=== PATIENT | male | born 1955 | race Caucasian/White ===

== ENCOUNTER 2018-03-15 06:40 | Emergency (ER) | payer MEDICAID, SELFPAY ==
[2018-03-15 06:43] VITALS: BP 151/82; PULSE 60; RESP 18; TEMP 36.7; O2SAT 99; BMI 29.2
--- NOTE | 2018-03-15 07:09 | ED.VISSUMM ---
- ER Visit Summary Date of Service: 03/15/18 Chief Complaint: [Back pain] History of Present Illness: The patient is a 62 M [presents the emergency department complaint of back pain that started 2 days ago. Patient states that he was stacking some wood when he first noticed the pain. The pain came on gradually and seemed to go away after a short time. Pain however did return and became more continuous. Patient had a more difficult time sleeping last night secondary to the pain. Patient denies any direct trauma to his back. Patient describes the pain is in his right lower back without any radiation to the abdomen, buttock, or legs. Patient denies any weakness in the legs. He denies any change in bowel or bladder function. Patient denies fever. He denies dysuria. Patient states that he had a similar pain years ago at which time it did radiate down his right leg but then the pain resolved and never returned.] Physical Examination: [HEENT-PERRLA, EOMI. Cranial nerves II through XII grossly intact. TMs clear. Mucous membranes moist. No adenopathy. Cardiovascular-regular rate and rhythm without murmur or ectopy Lungs-clear to auscultation, chest wall stable without crepitus or subcu emphysema Abdomen-normoactive bowel sounds, soft, nontender, no rebound or rigidity, no peritoneal signs. Back exam-patient has tenderness to palpation over the right low lumbar paraspinal musculature that reproduces his pain. No tenderness in the midline over the lumbar spine or thoracic spine. There is no erythema or warmth noted to his back. Patient does have pain with straight leg raising on the right at 50?. Deep tendon reflexes are plus out of 4 bilaterally at the patella and Achilles. Patient has normal L5 extension bilaterally. Patient has normal sensation. Extremities-intact ?4, normal range of motion, normal pulses, atraumatic] Test Results: None indicated [] Emergency Department Course and Treatment: [Patient will be treated with Naprosyn, [place], and Flexeril] Treatment Plan: [Patient has appointment with free clinic tomorrow. Patient to keep his appointment.] Disposition: [Discharged home in stable condition] Impression: [Lumbar strain] This note was generated with [employer]ation software. It may contain incorrect words, spelling, and punctuation that were not noted in review of the chart prior to signing ED Disposition - Plan for ED Patient: Chief Complaint: Back Referrals: Care Physician,No Primary [Primary Care Provider] -
--- NOTE | 2018-03-15 07:14 | DCINST.ED_ITS ---
ED Disposition - Plan for ED Patient: Chief Complaint: Back Instructions: ED Sprain Strain Lumbar Prescriptions: Hydrocodone/Acetaminophen [[place] 5-325 Tablet] 1 - 2 ea PO 4X/DAY PRN PRN 5 Days #20 tab PRN Reason: Pain Naproxen [Naprosyn] 500 mg PO BID PRN #20 tab Cyclobenzaprine [Flexeril] 10 mg PO TID PRN #20 tab PRN Reason: Muscle Spasm Referrals: Care Physician,No Primary [Primary Care Provider] - 1 Day
== END 2018-03-15 07:16 | disposition home or self-care (01) ==
LOC: ED 07:12
PROVIDERS: Emergency Provider Emergency Medicine
DX: S39.012A Strain of muscle, fascia and tendon of lower back, initial encounter (principal); X58.XXXA Exposure to other specified factors, initial encounter; Y93.9 Activity, unspecified; Y92.9 Unspecified place or not applicable; Z72.0 Tobacco use
CPT/HCPCS: 99282

== ENCOUNTER 2022-06-15 08:06 | Emergency (ER) | payer MEDICARE, SELFPAY ==
[2022-06-15 08:08] VITALS: BP 164/97; PULSE 84; RESP 17; TEMP 35.6; O2SAT 95; BMI 25.1
--- NOTE | 2022-06-15 08:32 | EX.ED.GUMALE ---
HPI History of Present Illness Chief Complaint: Complaint Informant: patient Narrative Narrative: Patient states he had a day or 2 with little blood in the urine few weeks to a month ago. It cleared up. He was doing well. Last couple days he has had more. He is also had mild discomfort with urination. He has had frequency. He has seen a couple small clots but generally the urine is red. It was then intermittently clear and go back. He takes no medicines currently. He is not on any anticoagulation. No fevers chills sweats nausea vomiting diarrhea or change in bowel habits. He is eating and drinking fine. He has not lost or gained weight recently. No history of bladder cancer. Does not have history of what sounds like significant BPH in the past. He states the last night he had 1 episode were he felt like it was a little hard to go the bathroom but then he is urinated multiple times since without difficulty. He does not feel systemically ill. Last time he saw physician was about 2 or so years ago. He has no history of prior medical problems. No medications No allergies Denies prior abdominal surgeries. He is a smoker. PFSH PFS Medical History no medical history Home Medications NK 06/15/22 [History Last Taken Unknown] Allergy/AdvReac Type Severity Reaction Status Date / Time No Known Allergies Allergy Verified 06/15/22 08:06 Surgical History no surgical history Social History Smoking Status: Current every day smoker tobacco type: cigarettes ROS ROS ED Constitutional Constitutional ED: Denies chills, fever(s) or subjective Cardiovascular Cardiovascular: Denies chest pain or palpitations Respiratory/Chest Respiratory/Chest: Denies cough or dyspnea Gastrointestinal Gastrointestinal: Denies abdominal pain, constipation, diarrhea, melena, nausea or vomiting Genitourinary Genitourinary ED: Reports dysuria, hematuria and urinary frequency Musculoskeletal Musculoskeletal: Denies arthralgias or back pain Integumentary Denies rash Neurologic Neurologic: Denies paresthesias Endocrine Endocrinology: Denies polydipsia Hematologic/Lymphatic Hematologic/Lymphatic: Reports other Details: No bleeding from cuts or gums or any other areas. No blood in the stool. ; Denies easy bleeding or easy bruising Allergic/Immunologic Allergic/Immunologic ED: Denies urticaria EXAM Physical Exam Const Vital Signs: 06/15/22 08:08 06/15/22 09:18 06/15/22 11:05 Temperature 96.1 F L 97.5 F L Temperature Source Temporal Temporal Pulse Rate 84 74 56 L Respiratory Rate 17 16 16 Blood Pressure 164/97 H 164/97 H 128/65 H Blood Pressure Mean 119 119 86 Pulse Ox 95 98 97 Oxygen Delivery Method Room Air Room Air Room Air Positive well nourished and well developed General Appearance ED: well developed and NAD; Negative for pallor HEENT Reports moist mucous membranes HEENT Narrative: No petechiae. Eyes EOMs intact bilaterally Neck no JVD Resp normal respiratory effort and clear to auscultation bilaterally Cardio regular rate and regular rhythm GI non-tender, non-distended and no masses GI Narrative: Abdomen soft benign. No masses. Bladder does not appear to be significantly distended. He can feel when I pressure on the bladder but is not really tender. I feel no lymph nodes. Palpation: soft no CVA tenderness Back/Spine no CVA tenderness Extremity normal to inspection Neuro Sensorium / Orientation: alert Psych mental status grossly normal Skin Skin Narrative: No petechiae purpura or pallor. General Skin Exam: Negative for jaundice or pallor MDM MDM MDM Narrative Medical decision making narrative: CT showed possible bladder neoplasm. I explained this to the patient. I had explained that one of the most important parts of his visit today will be follow-up. If he cannot get in for follow-up he needs to contact his private physician at the clinic or come back here. His blood work is normal including no signs of anemia. Electrolytes look good. Urine shows red cells. It is turbid. Culture is sent but not back. With his cath and irrigation and hematuria I will treat short course of antibiotics. But I think bleeding is likely from this lesion. His history has been intermittent over the last month. He now states he did not just have 1 episode a month ago but he has been having episodes about every 4 to 5 days that go on for a few days and then stop. He was irrigated and his urine came out almost clear. Is starting to get pink a little bit and red but no clots at this time. He did have one clot initially. He is comfortable going home. I explained if he gets heavier bleeding or lightheadedness or fever he needs to return. But because he is not anemic and has been having this for a month I think we can get him for follow-up. Lab Data Attestation: I reviewed the patient's lab results. Labs: Laboratory Results - last 24 hr 06/15/22 06/15/22 06/15/22 08:40 08:40 08:40 WBC 8.2 RBC 4.62 Hgb 14.5 Hct 44.6 MCV 96.5 H MCH 31.4 MCHC 32.5 RDW Std Deviation 49.0 H RDW Coeff of Kathi 13.7 Plt Count 459 H MPV 9.9 Immature Gran % (Auto) 0.900 Neut % (Auto) 64.6 Lymph % (Auto) 23.0 [place] % (Auto) 7.9 Eos % (Auto) 2.7 Baso % (Auto) 0.9 Absolute Neuts (auto) 5.3 Absolute Lymphs (auto) 1.89 Nucleated RBC % 0 Sodium 143 Potassium 4.1 Chloride 108 H Carbon Dioxide 30.0 Anion Gap 5 BUN 24 H Creatinine 1.13 Estim Creat Clear Calc 71.53 Est GFR (MDRD) Af Amer 84 Est GFR (MDRD) Non-Af 69 BUN/Creatinine Ratio 21.2 H Glucose 108 H Calcium 9.4 Urine Color Red Urine Clarity Turbid Urine pH 6.5 Ur Specific [place] 1.015 Urine Protein 500 H Urine Glucose (UA) Normal Urine Ketones 15 H Urine Occult Blood 250 H Urine Nitrite Negative Urine Bilirubin Negative Urine Urobilinogen Normal Ur Leukocyte Esterase 100 H Urine RBC > 100 SEEN Urine WBC 0 SEEN Ur Squamous Epith Cells 0 SEEN Urine Bacteria 0 SEEN Urine Mucus 0 SEEN Radiography Diagnostic Testing: Clinical Impression(s) from Imaging Studies Abdomen/Pelvis CT 06/15/22 08:42 IMPRESSION: Bladder wall thickening, perivesical stranding, and 2 cm enhancing lesion in the right bladder wall suspicious for neoplasm. Cystitis with phlegmon considered less likely. Small nonobstructing left renal calcification. Small bilateral renal cysts. Electronically Signed: Mary Leija MD at 10:05 EDT , CT scan looked at by me and read by radiology shows bladder wall thickening and a 2 cm enhancing lesion in the bladder wall that is suspicious for neoplasm. This goes along with his history. Discharge Plan Triage Chief Complaint: Complaint ED Provider: Mayur Shaw Dx/Rx/DC Orders Clinical Impression: Hematuria, Bladder mass Instructions: ED Hematuria Prescriptions: No Action NK Primary Care Provider: Care Physician,No Primary Referrals: Familia Prieto MD [Med Staff - Active Staff] - As soon as possible (Call Friday morning for an appointment this week. Tell them you have a catheter in, hematuria and bladder mass.) Shruthi Zamora [Non-Staff] - 3-5 Days (Follow-up if not able to get into urology within the next 6 days) Care Physician,No Primary [Primary Care Provider] - Disposition Disposition: Home, Self Care
--- NOTE | 2022-06-15 08:42 | CT_ITS ---
HISTORY: low abdominal pain, blood in urine starting yesterday, increased frequency. TECHNIQUE: Helically acquired images were obtained of the abdomen and pelvis after the intravenous administration of 100mL Isovue-370. A radiation dose optimization technique was used for this scan. 511 images. COMPARISON: None. FINDINGS: LOWER CHEST: Lung bases clear. BOWEL: Bowel including appendix nondilated. No focal pericolonic inflammatory change observed. PERITONEUM: No significant ascites. LIVER/SPLEEN/PANCREAS: Homogeneous and nonenlarged. GALLBLADDER/BILIARY TREE: Gallbladder present. KIDNEYS: 2 mm left interpolar calculus. No hydronephrosis. Small bilateral cysts measuring up to 1 cm on the right. ADRENAL GLANDS: No nodules. VESSELS: No abdominal aortic aneurysm. Atherosclerosis present with calcified and irregular noncalcified plaque. Probable vascular web in the infrarenal abdominal aorta. PELVIC ORGANS: Bladder wall thickening and mild perivesical stranding with 2 cm enhancing lesion of the right bladder wall, decompressed by Arevalo catheter. BONES: Degenerative change. CT/Abdomen/Pelvis W IV Cont ONLY IMPRESSION: Bladder wall thickening, perivesical stranding, and 2 cm enhancing lesion in the right bladder wall suspicious for neoplasm. Cystitis with phlegmon considered less likely. Small nonobstructing left renal calcification. Small bilateral renal cysts. Electronically Signed: Mary Leija MD at 10:05 EDT ,
[2022-06-15 08:50] LABS: Bacteria 0 SEEN /hpf (None Seen); Mucous, Urine 0 SEEN /hpf (<or=2+); Squamous Epithelial Cells - UA 0 SEEN /hpf (0-5); White Blood Cells 0 SEEN /hpf (0-5)
[2022-06-15 09:08] LABS: Color, Urine Red (Yellow); Glucose, Dipstick Normal (Normal); Ketone-Dipstick 15 mg/dl (Negative); Leukocyte Esterase-Dipstick 100 /ul (Negative); Nitrite-Dipstick Negative (Negative); Occult Blood-Urine 250 /ul (Negative); Protein-Dipstick 500 mg/dl (Negative); Specific Gravity, Urine 1.015 (1.002-1.030); Urine Bilirubin Dipstick Negative (Negative); Urine Clarity Turbid (Clear); Urine Urobilinogen Normal (Normal); Urine pH 6.5 (5.0 - 8.0)
[2022-06-15 09:13] LABS: Absolute Lymphocyte Count 1.89 X10^3/uL (0.83-4.51); Absolute Neutrophil Count 5.3 X10^3/uL (2.0-7.7); Basophil# 0.07 X10^3/uL; Basophil% 0.9 % (0-1); Eosinophil# 0.22 X10^3/uL; Eosinophils% 2.7 % (0-5); Hematocrit 44.6 % (40-54); Hemoglobin 14.5 g/dL (13.0-16.5); Lymphocyte # 1.89 X10^3/ul (0.83-4.51); Mean Corp Hgb Conc 32.5 g/dL (32-36); Mean Corpuscular Hgb 31.4 pg (27.0-32.0); Mean Corpuscular Volume 96.5 fL (80-94); Mean Platelet Vol. 9.9 fl (6.2-12.0); Monocyte# 0.65 X10^3/uL; Monocyte% 7.9 % (0-10); NRBC Flagged by Analyzer 0 % (0-5); Neutrophil # 5.31 X10^3/uL (2.7-7.7); Neutrophil % 64.6 % (47-70); Platelet Count 459 K/mm3 (150-450); RBC Distribution Width CV 13.7 % (11.6-14.6); Red Blood Count 4.62 M/mm3 (4.6-6.2); White Blood Count 8.2 K/mm3 (4.4-11.0)
[2022-06-15 09:18] VITALS: BP 164/97; PULSE 74; RESP 16; TEMP 36.4; O2SAT 98
[2022-06-15 09:18] LABS: Anion Gap 5 (5-15); BUN 24 mg/dL (7-18); BUN/Creat Ratio 21.2 RATIO (10-20); Calcium,Total 9.4 mg/dL (8.5-10.1); Chloride 108 mmol/L (98-107); Creatinine, Serum 1.13 mg/dL (0.70-1.30); EST Glomerular Filtration Rate 69 mL/min (>60); Est Glom Filt Rate - Afr Amer 84 mL/min (>60); Estimated Creatinine Clearance 71.53 ml/min; Glucose 108 mg/dL (74-106); Potassium 4.1 mmol/L (3.5-5.1); Sodium Level 143 mmol/L (136-145)
[2022-06-15 09:22] LABS: Red Blood Cells-Urine > 100 SEEN /hpf (0-5)
[2022-06-15 11:05] VITALS: BP 128/65; PULSE 56; RESP 16; O2SAT 97
[2022-06-15 11:59] VITALS: RESP 16
== END 2022-06-15 12:22 | disposition home or self-care (01) ==
PROVIDERS: Emergency Provider Emergency Medicine; Visit Provider Emergency Medicine
DX: Z00.00 Encounter for general adult medical examination without abnormal findings (principal)
CPT/HCPCS: 51702; 99284; 74177; 80048; 81001; 85025; 87086; Q9967; A4216

== ENCOUNTER 2022-06-18 15:38 | Inpatient (IN) | payer MEDICARE, SELFPAY ==
[2022-06-18 15:15] VITALS: BMI 21.3
[2022-06-18 15:28] VITALS: BP 139/76; PULSE 64; RESP 18; TEMP 36.4; O2SAT 96
[2022-06-18 15:34] VITALS: BP 139/76; PULSE 64; RESP 18; TEMP 36.4; O2SAT 96
[2022-06-18] MEDS: 0.9% Saline Lock 10 ML Syringe IV ×2 (16:06→16:27)
[2022-06-18] MEDS: 0.9% Normal Saline 1,000 ML 75 ML IV (16:06)
--- NOTE | 2022-06-18 16:40 | RAD_ITS ---
INDICATION: pre op EXAMINATION/TECHNIQUE: X-RAY - XR Chest 2 Views COMPARISON: None. FINDINGS: The lungs are clear. The cardiomediastinal silhouette is unremarkable. No pleural effusion or pneumothorax. Degenerative changes of the thoracic spine. RAD/Chest PA and Lateral IMPRESSION: No acute radiographic abnormalities. Electronically Signed: Bipin Jackson MD at 18:30 EDT ,
[2022-06-18] MEDS: Morphine 2 MG/ML Syringe 1 MG IV (16:58)
[2022-06-18 18:25] LABS: Hematocrit 35.6 % (40-54); Hemoglobin 12.2 g/dL (13.0-16.5); Mean Corp Hgb Conc 34.3 g/dL (32-36); Mean Corpuscular Hgb 32.3 pg (27.0-32.0); Mean Corpuscular Volume 94.2 fL (80-94); Mean Platelet Vol. 9.8 fl (6.2-12.0); Platelet Count 402 K/mm3 (150-450); RBC Distribution Width CV 13.7 % (11.6-14.6); RBC Distribution Width SD 47.8 fl (35.1-43.9); Red Blood Count 3.78 M/mm3 (4.6-6.2); White Blood Count 9.8 K/mm3 (4.4-11.0)
[2022-06-18 18:27] LABS: POSITIVE COUNT NO; POSITIVE DIFFERENTIAL NO; POSITIVE MORPHOLOGY NO; Scan Indicated on CBC? Y/N NO
[2022-06-18 19:22] LABS: Anion Gap 8 (5-15); BUN 24 mg/dL (7-18); BUN/Creat Ratio 21.2 RATIO (10-20); Calcium,Total 9.1 mg/dL (8.5-10.1); Chloride 106 mmol/L (98-107); Creatinine, Serum 1.13 mg/dL (0.70-1.30); EST Glomerular Filtration Rate 69 mL/min (>60); Est Glom Filt Rate - Afr Amer 84 mL/min (>60); Estimated Creatinine Clearance 65.82 ml/min; Glucose 148 mg/dL (74-106); Potassium 3.8 mmol/L (3.5-5.1); Sodium Level 140 mmol/L (136-145)
[2022-06-18 21:30] VITALS: BP 133/64; PULSE 66; RESP 16; TEMP 36.6; O2SAT 97
[2022-06-18 21:34] VITALS: BP 133/64; PULSE 66; RESP 16; TEMP 36.6; O2SAT 97
[2022-06-18] MEDS: Cefazolin 1 GM/50 ML BAG IV (21:56)
[2022-06-19] VITALS (12 sets, daily range): BP systolic 118–171; BP diastolic 60–94; PULSE 60–75; RESP 16–20; TEMP 36.2–37; O2SAT 95–99; BMI 21.3
[2022-06-19] MEDS: Acetaminophen 500 MG Tablet PO (04:19)
--- NOTE | 2022-06-19 05:55 | EKG12_ITS ---
Test Reason : AM EKG Blood Pressure : / mmHG Vent. Rate : 061 BPM Atrial Rate : 061 BPM P-R Int : 138 ms QRS Dur : 090 ms QT Int : 430 ms P-R-T Axes : 052 062 059 degrees QTc Int : 432 ms Normal sinus rhythm Normal ECG Confirmed by JUDY MOYA, MICHELINE ([id number]), graphic editor MACKENZIE DOMINGUEZ ([id number]) on 06/20/2022 12:49:15 PM Referred By: YAW Confirmed By:MICHELINE KIM MD
[2022-06-19] MEDS: Cefazolin 1 GM/50 ML BAG IV ×3 (06:15→22:33)
[2022-06-19] MEDS: 0.9% Normal Saline 1,000 ML 75 ML IV (06:16)
--- NOTE | 2022-06-19 11:20 | CASEMGMT ---
RN EVERT R PROGRAMMER CM to room to meet with patient for initial transition planning/care coordination assessment. BON LOYD introduced self and role at [facility]. Pt voices understanding and consents to assessment at this time. Pt resting in bed in no distress at this time. Pt is A/O at this time and answers all questions appropriately. Care providers, pharmacy, and demographics verified/updated at this time. PCP: No PCP. Pt states is has been about 10 yrs since seeing PCP and that was @ [facility] d/t he was laid off at the time. Pt encouraged to get established w/PCP. He states, I was thinking about doing that. Pt provided w/list of local PCP's. Pt voiced appreciation. Specialists: Dr Prieto-urologist. Preferred Pharmacy: [facility] Retail Insurance: [employer] A/B Prescription Benefit: Pt states he does not think he has RX benefits. He states, unless new rx's are really expensive, he should be able to afford paying for medications. Living Will/HPOA: States does not have LW or HCPOA . Interested in more information but states does not want to talk with at this time to complete paperwork, but states, I'll think about it. Provided w/Social Service rac card with number to call if chooses in the future to utilize [facility] social work for advanced directive completion. Patient expresses understanding. LNOK: Brother, Mathew. Pt has no children and parents are . Mathew is his only sibling. Living Arrangements: Lives alone in mobile home w/one step to enter. Pt states he is independent w/ADL's and IADL's. He states his stove is broken, but he does not wish to replace it d/t my house is wore out and then states, They'll probably tear it down when I move. He states he has the finances to purchase a new stove but does not wish to. He states he buys fast food often or microwaves meals. He declines wanting or needing any resources from , stating his finances are okay and he feels his home is a safe environment to live in. Transportation: Pt states drives self and states no transportation concerns at this time. DME: Denies using any DME and denies needs. HHC/SNF: no hx of either. Declines need for HHC. Pt wishes to return home and states has no concerns with going home at time of discharge. He states he was sent home from ER on Friday w/a F/C and had no difficulty w/managing it, stating, It was pretty easy. He states would be comfortable d/c'ing home w/ F/C again, if needed. Pt states smokes about 4 cigarettes a day and drinks ETOH, on a rare occasion. CM to follow for any discharge planning/needs. Pt voices no further concerns/needs at this time. Advised pt to ask for CM if any further questions/concerns/needs arise. Voices understanding. PLAN: Home Fadi EASON RN CM
--- NOTE | 2022-06-19 14:39 | NURSING ---
@ 1pprox 1430, pt to OR via bed
[2022-06-19] MEDS: Lactated Ringers 1,000 ML 15 ML IV (15:00)
--- NOTE | 2022-06-19 15:16 | DCINST_ITS ---
Discharge Instructions Diet Discharge Diet: No restrictions and Soft diet Activity Discharge Activity: Return to Normal Activity and No Restrictions Follow Up Care Please Follow Up With: Familia Prieto MD When: 2 weeks Test Results: Test results from this visit will be discussed in further detail at your follow- up appointment, if applicable. Discharge Plan Admission Admit Date/Time: 06/18/22 15:38 Primary Reason for Your Visit: bladder tumor Attending Provider: Familia Prieto Primary Care Provider: Care Physician,No Primary Discharge Orders/Prescriptions Prescriptions: New ciprofloxacin HCl [Cipro] 500 mg tablet 500 mg PO BID Qty: 14 0RF oxycodone-acetaminophen 5-325 mg tablet 1 tab PO Q6H PRN (Reason: pain) 7 Days Qty: 14 0RF Referrals / Follow Up: Familia Prieto MD [Med Staff - Active Staff] - Care Physician,No Primary [Primary Care Provider] -
--- NOTE | 2022-06-19 15:16 | HP.PCM_ITS ---
HPI - General General Date of Admission: 06/18/22 Date of Service: 06/19/22 HPI Narrative CARLOS ALBERTO TORRES, is a 67 M who presents with gross hematuria bladder mass and is gone to have surgery with a TUR[facility] Medical History Loose, teeth Smoker Home Medications ciprofloxacin HCl 500 mg tablet (Cipro) 500 mg PO BID #14 tabs 06/19/22 [Rx Last Taken Unknown] oxycodone-acetaminophen 5 mg-325 mg tablet 1 tab PO Q6H PRN pain 7 days #14 tabs 06/19/22 [Rx Last Taken Unknown] Allergy/AdvReac Type Severity Reaction Status Date / Time No Known Allergies Allergy Verified 06/15/22 08:06 Surgical History (Updated 06/18/22 @ 20:28 by Carlos Santana) History of tonsillectomy Social History Smoking Status: Current every day smoker tobacco type: cigarettes Vital Signs Vital Signs Vital Signs: 06/18/22 15:28 06/18/22 15:31 06/18/22 15:34 Temperature 97.6 F L 97.6 F L Temperature Source Temporal Temporal Pulse Rate 64 64 Pulse Strength Respiratory Rate 18 18 Respiratory Effort Respiratory Depth Respiratory Pattern Blood Pressure 139/76 H 139/76 H Blood Pressure Mean 97 97 Blood Pressure Source Monitor Blood Pressure Position Semi-Fowlers Blood Pressure Location Right Arm Pulse Ox 96 96 Oxygen Delivery Method Room Air Room Air Room Air 06/18/22 21:30 06/18/22 21:34 06/18/22 22:00 Temperature 98 F 98 F Temperature Source Oral Oral Pulse Rate 66 66 Pulse Strength Normal (2+) Respiratory Rate 16 16 Respiratory Effort Respiratory Depth Respiratory Pattern Blood Pressure 133/64 H 133/64 H Blood Pressure Mean 87 87 Blood Pressure Source Monitor Blood Pressure Position Semi-Fowlers Blood Pressure Location Right Arm Pulse Ox 97 97 Oxygen Delivery Method Room Air Room Air 06/18/22 21:15 06/19/22 03:30 06/19/22 03:30 Temperature 97.8 F 97.8 F Temperature Source Oral Oral Pulse Rate 72 72 Pulse Strength Respiratory Rate 16 16 Respiratory Effort Normal Non-Labored Respiratory Depth Normal Respiratory Pattern Normal Blood Pressure 150/80 H 150/80 H Blood Pressure Mean 103 103 Blood Pressure Source Monitor Blood Pressure Position Semi-Fowlers Blood Pressure Location Right Arm Pulse Ox 95 95 Oxygen Delivery Method Room Air Room Air Room Air 06/19/22 07:53 06/19/22 09:00 06/19/22 09:00 Temperature 97.8 F Temperature Source Temporal Pulse Rate 63 Pulse Strength Normal (2+) Respiratory Rate 18 18 Respiratory Effort Normal Respiratory Depth Respiratory Pattern Blood Pressure 147/87 H Blood Pressure Mean 107 Blood Pressure Source Blood Pressure Position Blood Pressure Location Pulse Ox 97 97 Oxygen Delivery Method Room Air Room Air 06/19/22 14:27 Temperature 97.8 F Temperature Source Temporal Pulse Rate 60 Pulse Strength Respiratory Rate 20 H Respiratory Effort Respiratory Depth Respiratory Pattern Blood Pressure 118/71 Blood Pressure Mean 86 Blood Pressure Source Monitor Blood Pressure Position Semi-Fowlers Blood Pressure Location Right Arm Pulse Ox 96 Oxygen Delivery Method Room Air Weight Weight: 71.4 kg Body Mass Index (BMI) 21.3 Results Lab / Micro Data Result Diagrams: 06/18/22 18:10 06/18/22 18:10 Labs: Laboratory Results - last 24 hr 06/18/22 18:10: WBC 9.8, RBC 3.78 L, Hgb 12.2 L, Hct 35.6 L, MCV 94.2 H, MCH 32.3 H, MCHC 34.3 D, RDW Std Deviation 47.8 H, RDW Coeff of Kathi 13.7, Plt Count 402, MPV 9.8 06/18/22 18:10: Sodium 140, Potassium 3.8, Chloride 106, Carbon Dioxide 26.0, Anion Gap 8, BUN 24 H, Creatinine 1.13, Estim Creat Clear Calc 65.82, Est GFR (MDRD) Af Amer 84, Est GFR (MDRD) Non-Af 69, BUN/Creatinine Ratio 21.2 H, Glucose 148 H, Calcium 9.1 Radiology Impression Chest X-Ray 06/18/22 16:40 IMPRESSION: No acute radiographic abnormalities. Electronically Signed: Bipin Jackson MD at 18:30 EDT ,
--- NOTE | 2022-06-19 15:43 | PCM.OPRPT ---
Report of Operation Date of Procedure: 06/19/22 Pre-Operative Diagnosis: Large bladder mass Post-Operative Diagnosis: Same Surgery/Procedure Performed:: Transurethral resection of a large bladder tumor over 5 cm size Description of Surgical Findings:: Patient presented to the hospital for treatment of a tumor that was found in the bladder with a very large bladder tumor. Patient understands is possible it may not be able to resect the entire tumor. Patient also understands is possible that the patient may need multiple procedures or more invasive procedures to cure him of this cancer. Patient was taken back to the operating room after smooth induction of anesthesia the patient was placed supine on the table. The patient was placed in dorsolithotomy position. The urethra and genitals prepped and draped in usual sterile fashion. I went into the bladder with a 30 degree lens and a cystoscope was performed and identified the tumor the tumors which was over 5 centimeters in size and occupying mostly the right lateral wall of the bladder. I then switched over to the 70 degree lens and inspected the rest of the bladder with a 70 degree lens to make sure there is no other tumors in the bladder and to identify all the tumor locations. The right and left ureteral orifice were identified. The tumor was not involved in the ureteral orifices. I then placed the Olympus bipolar resectoscope with a large loop into the bladder. I then started resected the tumor and started superficially shaving small little pieces working my way to the base of the tumor. This was an invasive tumor and complete resection of the tumor was not possible as it was invsive in the the bladder. As I went along I then cauterize any bleeders that were encountered during the resection. The tumor pieces were then flushed out of the bladder and continued resecting the tumor until finally I got down to the base of the tumor and the muscle of the bladder was then identified a small little bit of muscle was taken with the resection. The Ellik was used then to evacuate all the tumor pieces out of the bladder. I then cauterized extensively the tumor base and also circumferentially around where the tumor was. Again we made sure to evacuate all the pieces out the bladder. I made sure there was no more bleeding from the base of the bladder and then over the tumor pieces were then evacuated out and sent off as a specimen. We then placed the catheter in the bladder and the patient was taken back to the PACU in stable condition. Surgeon: Familia Prieto Type of Anesthesia: General Drains: none Admit VTE Documentation VTE Present on Admission: No VTE Mechan Device Prophylaxis: SCD's VTE Pharm Prophylaxis ordered?: No
--- NOTE | 2022-06-19 17:30 | BLB_PTH ---
PATIENT: CALROS ALBERTO TORRES LOC: MS3 U#:[id number] AGE/SX: 67/M [place] [facility] [place]18/[address]: Dr. Familia Prieto MD : [id number] BED: 1 DIS: 06/20/2022 SPEC #: [id number] RECD: 06/20/22 08:24 STATUS: DANUTA HOYT #: [id number] BARRON: 06/19/22 17:[address]: Familia Prieto DEPT: SURGICAL PATHOLOGY RECD BY: Mariama Dueñas ENTERED: 06/20/22 10:15 SP TYPE: TURB OTHR DR: No Primary Care Phys Tissues: Urinary bladder, NOS Procedures: Surgery Specimen Level V HEADER OPERATION: Cysto, transurethral resection bladder, [employer] PRE-OP DIAGNOSIS: Gross hematuria bladder mass TISSUE SUBMITTED: Bladder tumor MICROSCOPIC DIAGNOSIS Urinary bladder tumor, transurethral resection: Papillary urothelial carcinoma. See cancer synoptic report below. AM:meghan 06/21/2022 COMMENT The specimen mostly consists of clot and blood. Clinical correlation is suggested. BLADDER CANCER (TUR) SUMMARY Procedure: Transurethral resection of bladder tumor (TURBT) Tumor site: Not specified Histologic type: Papillary urothelial carcinoma, invasive Histologic grade: 3/3 Tumor configuration: Papillary and invasive Muscularis propria presence: Present and invaded by carcinoma. Lymphvascular invasion: Not identified Tumor extension: Tumor extends into detrusor muscle fragments. Additional pathologic findings: Chronic inflammation. The above summary is in compliance with [employer] [place] [employer] (CAP) Cancer Protocols Checklist and [place] Joint Committee on Cancer (AJCC), Staging Manual, 8th Ed. MICROSCOPIC DESCRIPTION Slides are reviewed. GROSS DESCRIPTION Received in fixative is one container labeled with the patient's name and designated bladder tumor. The specimen consists of multiple irregular fragments of dark red-mosqueda soft tissue with adherent fragments of blood clot that in aggregate measure 6.5 x 6.5 x 1 cm. The specimen is totally submitted in 20 cassettes. / AM:meghan 06/20/2022 TC:0 CPT: 29572
[2022-06-19] MEDS: Docusate Sodium 100 MG Capsule 200 MG PO (22:33)
[2022-06-19] MEDS: HYDROcodone Bitartrate/Apap 5/325 Tablet PO (22:34)
[2022-06-20 01:00] VITALS: BMI 21.3
[2022-06-20] MEDS: 0.9% Normal Saline 1,000 ML 75 ML IV (01:49)
[2022-06-20 05:00] VITALS: BP 131/66; PULSE 58; RESP 16; TEMP 36.5; O2SAT 97; BMI 21.3
[2022-06-20] MEDS: Cefazolin 1 GM/50 ML BAG IV (05:39)
--- NOTE | 2022-06-20 07:23 | PCM.PN.BLA ---
Progress Note Status post your VT for a invasive bladder tumor told the patient today that most likely he is get any chemotherapy and to have his bladder removed to address his cancer it is invasive. Pathology is pending he will go home today follow-up in my office in a week.
[2022-06-20] MEDS: Docusate Sodium 100 MG Capsule 200 MG PO (08:42)
[2022-06-20 08:45] VITALS: BMI 21.3
[2022-06-20 08:55] VITALS: BP 125/56; PULSE 68; RESP 18; TEMP 36.5; O2SAT 95
[2022-06-20 10:55] VITALS: BP 125/56; PULSE 68; RESP 18; TEMP 36.5; O2SAT 95
== END 2022-06-20 11:35 | disposition home or self-care (01) | DRG 670 ==
PROVIDERS: Admitting Provider Urology; Visit Provider Urology
PROC: 0TBB8ZZ Excision of Bladder, Via Natural or Artificial Opening Endoscopic (ICD-10-PCS; principal; 2022-06-19 17:20)
DX: C67.2 Malignant neoplasm of lateral wall of bladder (principal); F17.210 Nicotine dependence, cigarettes, uncomplicated; R31.0 Gross hematuria; Z28.310 Unvaccinated for COVID-19; Z28.9 Immunization not carried out for unspecified reason
CPT/HCPCS: 36415; 51702; 71046; 74177; 80048; 81001; 85025; 85027; 87086; 88307; 93005; 97802; 99251; 99284; 99406; J7030; J7120; Q9967; A4216; G0463

== ENCOUNTER 2023-02-19 07:08 | Emergency (ER) | payer MEDICARE, SELFPAY ==
[2023-02-19 07:08] VITALS: BP 149/90; PULSE 91; RESP 16; TEMP 36.4; O2SAT 98; BMI 26.4
--- NOTE | 2023-02-19 07:12 | EX.ED.DYSGE1 ---
HPI History of Present Illness Chief Complaint: Complaint [facility] Medical History Loose, teeth Smoker Allergy/AdvReac Type Severity Reaction Status Date / Time No Known Allergies Allergy Verified 02/19/23 07:10 Surgical History History of tonsillectomy Social History Smoking Status: Current every day smoker tobacco type: cigarettes EXAM Physical Exam Const Vital Signs: 02/19/23 07:08 Temperature 97.5 F L Temperature Source Temporal Pulse Rate 91 Respiratory Rate 16 Blood Pressure 149/90 H Blood Pressure Mean 109 Pulse Ox 98 Oxygen Delivery Method Room Air MDM MDM MDM Narrative Medical decision making narrative: HISTORY OF PRESENT ILLNESS: 67-year-old male here with hematuria. States his history of bladder cancer but never completed treatment. States for last several days he has had gross blood in his urine. Denies any urinary retention. Denies any lower abdominal pain. Denies chest pain shortness of breath excessive fatigue but does note some occasional lightheadedness over the last 24 hours. States he cannot sleep well last night because he had increased frequency. REVIEW OF SYSTEMS: Pertinent positives: Hematuria, lightheadedness Pertinent negatives: Chest pain, shortness of breath, syncope PHYSICAL EXAM: Nursing triage notes reviewed, Vital signs reviewed Constitutional: please see mdm HENT: MMM Eyes: Pupils equal round and reactive to light, Extraocular muscles intact Neck: No stridor, no JVD, full neck ROM Lungs: Clear to auscultation, No wheezing or rales. No increased work of breathing, no conversational dyspnea, no accessory muscle use, no nasal flaring. No respiratory distress noted Heart: Regular rate and rhythm, No murmurs, No rubs and No gallops, 2+ distal pulses (radial, femoral, posterior tibial) in all extremities Abdomen: Soft, there is no tenderness, rigidity, rebound or guarding, no obvious peritoneal signs, no palpable pulsatile abdominal masses, no auscultated abdominal bruit : No CVAT Extremities: No edema Neuro: No focal neurological deficits, cranial nerves II through XII intact, 5/5 strength in all extremities. Intact sensation to light touch in all extremities, 2+ reflexes bilateral patella tendons. Normal gait. No ataxia. Skin: No rash or lesions noted MEDICAL DECISION MAKING: Chief Complaint: Hematuria External records reviewed: No blood thinners, seen by Dr. Prieto for transurethral resection of large bladder tumor in 2021 Factors affecting care: Bladder cancer Social determinants of health: Elderly History obtained from others: None Consults: None ALL IMAGES (IF OBTAINED) HAVE BEEN PERSONALLY REVIEWED AND INTERPRETED BY MYSELF. [facility] Narrative: Patient was hemodynamically stable, afebrile, nontoxic-appearing. Abdominal exam was benign. No lower abdominal fullness noted. I considered the following differential diagnosis: UTI, bladder cancer, anemia, electrolyte abnormality, dehydration, kidney dysfunction, urinary retention I obtained a CBC to rule out significant anemia, BMP to rule out something electrode abnormality [place] or dehydration. UA to rule out UTI. I sent urine for culture. Patient was able to void here without issue effectively ruling out urinary retention. Patient's labs were remarkable for no significant anemia. No significant electrolyte abnormalities or signs of dehydration however there is some mild renal insufficiency. We discussed increasing p.o. intake to compensate. Patient's urine showed evidence of hematuria but no evidence of infection. Will send urine for culture. There is no clear life or limb threatening etiology could be ascertained The patient and/or family, caregivers express understanding. The patient and/or family, caregivers agrees with the plan. Total critical care time today provided was at least 0 minutes. This excludes separately billable procedures. Critical care time (if documented) is secondary to the patient having high probability of clinically significant/life threatening deterioration in the patient's condition which required my urgent intervention. Shared decision making: I will have a discussion with the patient and or visitors regarding risk/benefits of further testing or admission. They will be made aware of of the risk/benefits inherent in this decision they will be given the opportunity to voice understanding. Lab Data Attestation: I reviewed the patient's lab results. Lab results narrative: CBC without leukocytosis, severe anemia, no thrombocytopenia. BMP with no electrolyte abnormalities, no anion gap to suggest endorgan hypoperfusion, mild renal insufficiency, Urinalysis shows no evidence of urinary inflammation suggestive of UTI Labs: Laboratory Results - last 24 hr 02/19/23 02/19/23 02/19/23 07:43 07:43 07:43 WBC 9.5 RBC 4.30 L Hgb 13.4 Hct 41.6 MCV 96.7 H MCH 31.2 MCHC 32.2 RDW Std Deviation 47.4 H RDW Coeff of Kathi 13.3 Plt Count 286 MPV 9.7 Sodium 141 Potassium 4.3 Chloride 108 H Carbon Dioxide 28.0 Anion Gap 5 BUN 20 H Creatinine 1.44 H Estim Creat Clear Calc 56.13 Est GFR (MDRD) Af Amer 63 Est GFR (MDRD) Non-Af 52 L BUN/Creatinine Ratio 13.9 Glucose 118 H Calcium 9.6 Urine Color Red Urine Clarity Turbid Urine pH 7.0 Ur Specific [place] 1.015 Urine Protein 500 H Urine Glucose (UA) Normal Urine Ketones 15 H Urine Occult Blood 150 H Urine Nitrite Negative Urine Bilirubin Negative Urine Urobilinogen Normal Ur Leukocyte Esterase Negative Urine RBC > 100 SEEN Urine WBC 0 SEEN Ur Squamous Epith Cells 0 SEEN Urine Bacteria 0 SEEN Urine Mucus 0 SEEN Discharge Plan Triage Chief Complaint: Complaint ED Provider: Ashvin Pretty Dx/Rx/DC Orders Clinical Impression: Hematuria, History of bladder cancer, Acute renal insufficiency Instructions: ED Hematuria Primary Care Provider: Care Physician,No Primary Referrals: Familia Prieto MD [Med Staff - Active Staff] - Activity Restrictions/Additional Instructions: Thank you for trusting us with your care today! Please take Tylenol (2 pills, 650 mg), ibuprofen (2 pills, 400 mg) every 6 hours as needed for pain and fever control. Please return to the emergency department if your symptoms change or worsen. Specifically if you develop lightheadedness, excessive fatigue, if you lose consciousness, you have chest pain or shortness of breath. If you cannot urinate for greater than 12 hours. Please follow with your Urologist for further outpatient evaluation and management. Disposition Disposition: Home, Self Care Discharge Date/Time: 02/19/23 08:39
[2023-02-19 07:47] LABS: Bacteria 0 SEEN /hpf (None Seen); Hematocrit 41.6 % (40-54); Hemoglobin 13.4 g/dL (13.0-16.5); Mean Corp Hgb Conc 32.2 g/dL (32-36); Mean Corpuscular Hgb 31.2 pg (27.0-32.0); Mean Corpuscular Volume 96.7 fL (80-94); Mean Platelet Vol. 9.7 fl (6.2-12.0); Mucous, Urine 0 SEEN /hpf (<or=2+); Platelet Count 286 K/mm3 (150-450); RBC Distribution Width CV 13.3 % (11.6-14.6); RBC Distribution Width SD 47.4 fl (35.1-43.9); Squamous Epithelial Cells - UA 0 SEEN /hpf (0-5); White Blood Cells 0 SEEN /hpf (0-5); White Blood Count 9.5 K/mm3 (4.4-11.0)
[2023-02-19 07:52] LABS: Color, Urine Red (Yellow); Glucose, Dipstick Normal (Normal); Ketone-Dipstick 15 mg/dl (Negative); Leukocyte Esterase-Dipstick Negative /ul (Negative); Nitrite-Dipstick Negative (Negative); Occult Blood-Urine 150 /ul (Negative); Protein-Dipstick 500 mg/dl (Negative); Specific Gravity, Urine 1.015 (1.002-1.030); Urine Bilirubin Dipstick Negative (Negative); Urine Clarity Turbid (Clear); Urine Urobilinogen Normal (Normal)
[2023-02-19 07:58] LABS: Red Blood Cells-Urine > 100 SEEN /hpf (0-5)
[2023-02-19 08:00] LABS: Anion Gap 5 (5-15); BUN 20 mg/dL (7-18); BUN/Creat Ratio 13.9 RATIO (10-20); Calcium,Total 9.6 mg/dL (8.5-10.1); Chloride 108 mmol/L (98-107); Creatinine, Serum 1.44 mg/dL (0.70-1.30); EST Glomerular Filtration Rate 52 mL/min (>60); Est Glom Filt Rate - Afr Amer 63 mL/min (>60); Estimated Creatinine Clearance 56.13 ml/min; Glucose 118 mg/dL (74-106); Potassium 4.3 mmol/L (3.5-5.1); Sodium Level 141 mmol/L (136-145)
== END 2023-02-19 08:39 | disposition home or self-care (01) ==
LOC: ED 08:13
PROVIDERS: Emergency Provider Emergency Medicine; Visit Provider Emergency Medicine
DX: R31.9 Hematuria, unspecified (principal); F17.210 Nicotine dependence, cigarettes, uncomplicated; Z85.51 Personal history of malignant neoplasm of bladder; N28.9 Disorder of kidney and ureter, unspecified
CPT/HCPCS: 80048; 81001; 85027; 87086; 99282

== ENCOUNTER 2023-03-28 16:23 | Emergency (ER) | payer MEDICARE, SELFPAY ==
[2023-03-28 16:24] VITALS: BP 137/85; PULSE 102; RESP 19; TEMP 36.3; O2SAT 100; BMI 24.1
[2023-03-28 17:26] LABS: Bacteria 0 SEEN /hpf (None Seen); Mucous, Urine 0 SEEN /hpf (<or=2+); Squamous Epithelial Cells - UA 0 SEEN /hpf (0-5)
--- NOTE | 2023-03-28 17:27 | EDS_ITS ---
HPI History of Present Illness Chief Complaint: Complaint Detail of Chief Complaint: Gross hematuria and difficulty urinating and fullness suprapubic region Informant: patient Onset/Context/Timing Onset: Today Context: Sudden Onset Timing: Continuous Current Severity: Moderate Worsened by: Suspect clot due to gross hematuria secondary to bladder cancer Relieved by: Nothing Associated Symptoms Associated Symptoms: Suprapubic discomfort Narrative Narrative: Patient is a 67-year-old male. He has seen Dr. Mendoza. He has an appointment to see Dr. Chaz Baer tomorrow. He had a CAT scan and ultrasound performed at [facility] yesterday. He does not know the results. Will attempt to get results through clinic sync. Patient presents because of fullness in suprapubic area with gross hematuria and inability to void completely. This has been present probably more than 24 hours. He is not a good informant. He denies fever, chills night sweats. Denies flank pain. He is not on an anticoagulant. He denies bruising easily. He denies black or maroon-colored stool. Prior similar symptoms: Yes Recent Illness/Hospitalization: Yes PFSH PFSH Medical History Loose, teeth Smoker Allergy/AdvReac Type Severity Reaction Status Date / Time No Known Allergies Allergy Verified 03/28/23 16:27 Surgical History History of tonsillectomy Social History (Updated 03/28/23 @ 17:[address] Prashanth Salcedo MD) household members: none Smoking Status: Current every day smoker tobacco type: cigarettes substance use type: does not use ROS ROS ED Constitutional Constitutional ED: Denies chills, fever(s), subjective, sweats or weight loss Eyes Eyes: Denies blurry vision, change in vision or diplopia ENT ENT ED: Denies ear pain or rhinorrhea Cardiovascular Cardiovascular: Denies chest pain or palpitations Respiratory/Chest Respiratory/Chest: Denies cough, dyspnea or dyspnea on exertion Gastrointestinal Gastrointestinal: Reports abdominal pain and nausea; Denies constipation, diarrhea, melena or vomiting Genitourinary Genitourinary ED: Reports hematuria and urinary frequency; Denies dysuria Musculoskeletal Musculoskeletal: Denies arthralgias, back pain or myalgias Integumentary Denies abscess, Abrasions or rash Neurologic Neurologic: Denies headache(s), paresthesias or weakness Endocrine Endocrinology: Denies cold intolerance or heat intolerance Hematologic/Lymphatic Hematologic/Lymphatic: Reports systems reviewed and no addt'l complaints, except as documented and as per HPI EXAM Physical Exam Const Vital Signs: 03/28/23 16:24 Temperature 97.3 F L Temperature Source Temporal Pulse Rate 102 H Respiratory Rate 19 H Blood Pressure 137/85 H Blood Pressure Mean 102 Pulse Ox 100 Oxygen Delivery Method Room Air Positive well nourished and well developed General Appearance ED: well developed, NAD and pallor; Negative for cyanotic or diaphoretic HEENT Reports moist mucous membranes trauma Eyes PERRL and EOMs intact bilaterally General Eye ED: Yes pale conjunctiva; Negative for scleral icterus Neck no lymphadenopathy and supple Resp normal respiratory effort and clear to auscultation bilaterally Cardio regular rhythm, S1 normal heart sound, S2 normal heart sound and no murmurs Rate: tachycardic GI normal to inspection, nondistended, normoactive bowel sounds; Negative for non- tender, hepatosplenomegaly or no masses GI Narrative: Patient's bladder is enlarged to percussion. Auscultation: hypoactive bowel sounds Palpation: soft, tender suprapubic, guarding and mass other (Distended bladder); Negative for splenomegaly or rebound tenderness present Back/Spine no CVA tenderness Cervical Spine: Negative for cervical spine tenderness Thoracic Spine / Upper Back: Negative for thoracic spinal tenderness Lumbar Spine / Lower Back: Negative for lumbar spinal tenderness Extremity normal to inspection General Extremety ED: Yes edema; Negative for tenderness General Extremity: edema Neuro oriented x3, CN's II-XII intact bilaterally and no sensory deficits noted Sensorium / Orientation: alert Psych mental status grossly normal Skin no rashes or lesions noted, no wounds and No skin turgor normal General Skin Exam: pallor; Negative for jaundice MDM MDM MDM Narrative Medical decision making narrative: Patient with gross hematuria. Suspect he is having difficulty voiding because of clots. Three-way was ordered for irrigation. CBC to assess H&H and white count. BMP to assess renal function. Coags were not obtained since he is not on an anticoagulant. History & Record Review Additional record(s) reviewed:: Prior outpatient record, Prior ED visit and Prior labs Lab Data Attestation: I reviewed the patient's lab results. Lab results narrative: CBC reveals mild anemia with normal indices. Competence of metabolic panel was elevated creatinine of 1.46. GFR is 51. UA reveals gross hematuria. There is no evidence of infection. Labs: Laboratory Results - last 24 hr 03/28/23 17:15 WBC 9.9 RBC 3.49 L Hgb 10.9 L Hct 32.9 L MCV 94.3 H MCH 31.2 MCHC 33.1 RDW Std Deviation 47.2 H RDW Coeff of Kathi 13.8 Plt Count 347 MPV 9.3 Immature Gran % (Auto) 0.400 Neut % (Auto) 78.7 H Lymph % (Auto) 13.5 L [place] % (Auto) 6.2 Eos % (Auto) 0.9 Baso % (Auto) 0.3 Absolute Neuts (auto) 7.8 H Absolute Lymphs (auto) 1.33 Nucleated RBC % 0 Sodium 136 Potassium 4.2 Chloride 102 Carbon Dioxide 28.0 Anion Gap 6 BUN 18 Creatinine 1.46 H Estim Creat Clear Calc 55.37 Est GFR (MDRD) Af Amer 62 Est GFR (MDRD) Non-Af 51 L BUN/Creatinine Ratio 12.3 Glucose 113 H Calcium 9.4 Urine Color Red Urine Clarity Turbid Urine pH 6.5 Ur Specific [place] 1.015 Urine Protein 500 H Urine Glucose (UA) Normal Urine Ketones Negative Urine Occult Blood 250 H Urine Nitrite Negative Urine Bilirubin Negative Urine Urobilinogen Normal Ur Leukocyte Esterase 25 H Urine RBC > 100 SEEN Urine WBC 25-50 SEEN Ur Squamous Epith Cells 0 SEEN Urine Bacteria 0 SEEN Urine Mucus 0 SEEN Treatment and Re-Evaluation :: Patient has voided several times since he arrived. Bladder scan reveals only 93 cc of urine in his bladder. Plan is to discharge home and for him to keep his appointment to see Dr. Chaz Baer tomorrow to treat his bladder cancer. Patient had a 2.5 g drop of his hemoglobin since February 21. Creatinine is at baseline. Discharge Plan Triage Chief Complaint: Complaint ED Provider: Prashanth Salcedo Dx/Rx/DC Orders Clinical Impression: Mild renal insufficiency, Bladder cancer, Gross hematuria, Anemia due to blood loss Instructions: ED Anemia, Iron-Deficiency (Adult), ED Hematuria Primary Care Provider: Care Physician,No Primary Referrals: Chaz Baer DO [Med Staff - Active Staff] - Keep Dee appointment Care Physician,No Primary [Primary Care Provider] - Disposition Disposition: Home, Self Care
--- NOTE | 2023-03-28 17:32 | ED.RN ---
PT UP MULTIPLE TIMES, STATES HE CAN BARELY HOLD IT.
[2023-03-28 17:33] LABS: Absolute Lymphocyte Count 1.33 X10^3/uL (0.83-4.51); Absolute Neutrophil Count 7.8 X10^3/uL (2.0-7.7); Basophil# 0.03 X10^3/uL; Basophil% 0.3 % (0-1); Eosinophil# 0.09 X10^3/uL; Eosinophils% 0.9 % (0-5); Hematocrit 32.9 % (40-54); Hemoglobin 10.9 g/dL (13.0-16.5); Lymphocyte # 1.33 X10^3/ul (0.83-4.51); Lymphocyte % 13.5 % (19-41); Mean Corp Hgb Conc 33.1 g/dL (32-36); Mean Corpuscular Hgb 31.2 pg (27.0-32.0); Mean Corpuscular Volume 94.3 fL (80-94); Mean Platelet Vol. 9.3 fl (6.2-12.0); Monocyte# 0.61 X10^3/uL; Monocyte% 6.2 % (0-10); NRBC Flagged by Analyzer 0 % (0-5); Neutrophil # 7.76 X10^3/uL (2.7-7.7); Neutrophil % 78.7 % (47-70); Platelet Count 347 K/mm3 (150-450); RBC Distribution Width CV 13.8 % (11.6-14.6); RBC Distribution Width SD 47.2 fl (35.1-43.9); Red Blood Count 3.49 M/mm3 (4.6-6.2); White Blood Count 9.9 K/mm3 (4.4-11.0)
[2023-03-28 17:45] LABS: Anion Gap 6 (5-15); BUN 18 mg/dL (7-18); BUN/Creat Ratio 12.3 RATIO (10-20); Calcium,Total 9.4 mg/dL (8.5-10.1); Chloride 102 mmol/L (98-107); Creatinine, Serum 1.46 mg/dL (0.70-1.30); EST Glomerular Filtration Rate 51 mL/min (>60); Est Glom Filt Rate - Afr Amer 62 mL/min (>60); Estimated Creatinine Clearance 55.37 ml/min; Glucose 113 mg/dL (74-106); Potassium 4.2 mmol/L (3.5-5.1); Sodium Level 136 mmol/L (136-145)
[2023-03-28 18:12] LABS: Color, Urine Red (Yellow); Glucose, Dipstick Normal (Normal); Ketone-Dipstick Negative (Negative); Leukocyte Esterase-Dipstick 25 /ul (Negative); Nitrite-Dipstick Negative (Negative); Occult Blood-Urine 250 /ul (Negative); Protein-Dipstick 500 mg/dl (Negative); Specific Gravity, Urine 1.015 (1.002-1.030); Urine Bilirubin Dipstick Negative (Negative); Urine Clarity Turbid (Clear); Urine Urobilinogen Normal (Normal); Urine pH 6.5 (5.0 - 8.0)
[2023-03-28 18:13] LABS: Red Blood Cells-Urine > 100 SEEN /hpf (0-5); White Blood Cells 25-50 SEEN /hpf (0-5)
[2023-03-28 18:45] VITALS: PULSE 91; RESP 16; O2SAT 97
== END 2023-03-28 19:01 | disposition home or self-care (01) ==
PROVIDERS: Emergency Provider Emergency Medicine; Visit Provider Emergency Medicine
DX: R31.0 Gross hematuria (principal); C67.9 Malignant neoplasm of bladder, unspecified; N28.9 Disorder of kidney and ureter, unspecified; F17.210 Nicotine dependence, cigarettes, uncomplicated; D50.0 Iron deficiency anemia secondary to blood loss (chronic)
CPT/HCPCS: 80048; 81001; 85025; 99282; A4216

== ENCOUNTER 2023-05-16 10:20 | Emergency (ER) | payer MEDICARE, SELFPAY ==
[2023-05-16] VITALS (10 sets, daily range): BP systolic 99–139; BP diastolic 51–70; PULSE 70–90; RESP 16–25; TEMP 36.2–36.6; O2SAT 100; BMI 24.2
--- NOTE | 2023-05-16 10:57 | EKG12_ITS ---
Test Reason : SYNCOPE Blood Pressure : / mmHG Vent. Rate : 080 BPM Atrial Rate : 080 BPM P-R Int : 124 ms QRS Dur : 092 ms QT Int : 396 ms P-R-T Axes : 066 061 053 degrees QTc Int : 456 ms Normal sinus rhythm Normal ECG When compared with ECG of 19-JUN-2022 05:37, No significant change was found Confirmed by LARA MOYA, CHET ([id number]), book or script editor DONALDO WHITE ([id number]) on 05/21/2023 10:17:34 AM Referred By: MILAGROS Confirmed By:CHET BERMUDEZ MD
--- NOTE | 2023-05-16 11:00 | EDS_ITS ---
HPI History of Present Illness Chief Complaint: Abn Labs Narrative Narrative: Patient is a 68-year-old male who is presenting to the ER with chief of a hemoglobin of 5.8. This was drawn on May 16. Patient has a history of bladder cancer with no treatment that is ongoing. Patient did have 2 unit of blood given last month. Patient does have a urologist in [place], Dr. Michael Smith. Patient does have a history of bladder cancer, patient's bladder is going to be removed. Patient was recently admitted to [facility] in the last several months where patient had 2 units of blood transfused. Patient is not a dialysis patient. Patient has no history of kidney failure. Patient has felt weak and fatigued recently. Patient lives at home by himself. Patient drove himself to the ER. Patient has been lightheaded and dizzy, no headache. No chest pain or shortness of breath. Patient is having intermittent hematuria, patient says that is normal and expected with his bladder cancer from what his urologist had told him. Patient does see locally Dr. Chaz Bonner for oncology. Patient saw Dr. Bonner in the office today at the [facility] oncology office, patient was told about his low blood levels and told to come to the ER for evaluation. Patient has no hematemesis, no melena, no hematochezia. No other blood loss that he is aware of besides the intermittent hematuria. Patient lives at home by himself. Patient drove to his doctor's appointment today and then drove to the ER. PFSH PFSH Medical History Loose, teeth Smoker Allergy/AdvReac Type Severity Reaction Status Date / Time No Known Allergies Allergy Verified 05/16/23 10:21 Surgical History History of tonsillectomy Social History (Updated 03/28/23 @ 17:[address] Prashanth Salcedo MD) household members: none Smoking Status: Current every day smoker tobacco type: cigarettes substance use type: does not use ROS ROS ED ROS Narrative REVIEW OF SYSTEMS: Unless otherwise stated in this report the patient's positive and negative responses for review of systems for constitutional, eyes, ENT, cardiovascular, respiratory, gastrointestinal, neurological, , musculoskeletal, and integument systems and related systems to the presenting problem are either stated in the history of present illness or were not pertinent or were negative for the symptoms and/or complaints related to the presenting medical problem. EXAM Physical Exam Narrative Exam Narrative: Vital signs reviewed and patient is not hypoxic. General: The patient appears well and in no apparent distress. Patient is resting comfortably on cart. Not toxic, lethargic, or listless. Skin: Warm, dry, no pallor noted. There is no rash noted. Head: Normocephalic, atraumatic Eye: Normal conjunctiva, no drainage, EOMI. PERRL. Ears, Nose, Mouth, and Throat: oral mucosa is moist. Nares patent. Mouth without vesicles. Cardiovascular: Regular Rate and Rhythm, no murmurs, gallops, or rubs Respiratory: Patient is in no distress, no accessory muscle use, lungs are clear to auscultation, no wheezing, rales or rhonchi Back: non-tender, no CVA tenderness bilaterally to percussion. NO CTLS midline or paraspinal tenderness to palpation. GI: Soft, diffuse mild no tenderness to palpation, no peritoneal signs, no masses appreciated. No rebound, guarding, or rigidity noted. : Patient is not circumcised, patient has no active bleeding at this time, but he does have dried blood noticed in his depends. Patient has no tenderness to palpation to bilateral testicles. Patient has minimal suprapubic tenderness to palpation. Musculoskeletal: The patient has full range of motion of all extremities and joints with no difficulty. Patient has no motor, no sensory deficits. Neurological: A&O x4, normal speech, no focal neurological deficits. Psychiatric: Cooperative Const Vital Signs: 05/16/23 10:21 05/16/23 10:32 05/16/23 12:40 Temperature 97.6 F L Temperature Source Temporal Pulse Rate 90 70 Respiratory Rate 18 18 Respiratory Pattern Normal Blood Pressure 99/51 L Blood Pressure Mean 67 Blood Pressure Source Blood Pressure Position Blood Pressure Location Pulse Ox 100 100 Oxygen Delivery Method Room Air Room Air 05/16/23 13:39 05/16/23 15:53 Temperature 97.9 F Temperature Source Temporal Pulse Rate 81 76 Respiratory Rate 18 16 Respiratory Pattern Blood Pressure 127/67 H 125/53 H Blood Pressure Mean 87 77 Blood Pressure Source Monitor Blood Pressure Position Semi-Fowlers Blood Pressure Location Left Arm Pulse Ox 100 100 Oxygen Delivery Method Room Air MDM MDM MDM Narrative Medical decision making narrative: Patient's repeat hemoglobin level was 5.7. Patient's initial BUN and creatinine were 153 and 16.6. Patient is not a dialysis patient. These numbers will be repeated. Secondary to initial elevation of BUN/creatinine, bladder scan and CT of the abdomen pelvis will be performed as well. Patient is given 1 L of IV fluids, patient had 2 units of blood ordered. 1230 I have spoken to Dr. Cullen. We do not have any urology coverage this weekend, patient will need to be transferred 1245 Repeat BUN/creatinine is similar. Patient has elevated white blood cells of 20. Platelets are slightly elevated. Patient has CO2 of 13, anion gap of 18. Patient is also hyponatremic. Patient has received 1 L of IV fluid, patient has 2 units of blood ordered. 1310 I did spoke to [facility] transfer line, Ray. He will speak to nephrology, call us back to see if they have a possible bed available. 1415 We were waiting for [facility] to call back with nephrology, I have not had any return phone calls after several calls to check on the status of transfer. I then have spoken to [facility] transfer line. To see if they had possibility of bed availability to transfer this critical patient. 1620 we have gained acceptance from [facility], Dr. Jade DIAZ. Patient will be admitted to the MICU at [facility]. Patient is currently receiving blood. Patient's blood pressure and vital signs continue to remain stable. Patient agrees with going to the [facility], he has not been there previously. Patient's oncologist is local and the [facility] system, Dr. Bonner. Patient has a urologist in [place] as well, Dr Michael Smith (sp??). Patient agrees to admission, we are waiting for critical care transport to arrive. Critical care time 35 minutes exclusive from separate billable procedures that were performed. The following was considered in the determination of critical care but not limited to the level of medical decision making, intensive cardiac and/or respiratory monitoring, frequent vital sign monitoring, evaluation of laboratory studies, evaluation of radiographic studies, oxygen monitoring, and constant monitoring and speaking to family at bedside Lab Data Attestation: I reviewed the patient's lab results. Labs: Laboratory Results - last 24 hr 05/16/23 05/16/23 10:40 12:15 WBC 20.5 H RBC 2.02 L Hgb 5.7 L* Hct 17.2 L MCV 85.1 MCH 28.2 MCHC 33.1 RDW Std Deviation 49.4 H RDW Coeff of Kathi 15.9 H Plt Count 695 H MPV 9.6 Immature Gran % (Auto) 1.100 H Neut % (Auto) 94.1 H Lymph % (Auto) 1.8 L [place] % (Auto) 2.9 Eos % (Auto) 0.0 Baso % (Auto) 0.1 Absolute Neuts (auto) 19.3 H Absolute Lymphs (auto) 0.36 L Nucleated RBC % 0 Diff Path Review May foll Platelet Estimate MOD INC Hypochromasia 2+ PT 15.0 H INR 1.2 APTT 33.4 Sodium 124 L 124 L Potassium 4.8 4.9 Chloride 90 L 93 L Carbon Dioxide 13.0 L 13.0 L Anion Gap 21 H 18 H BUN 153 H* 153 H* Creatinine 16.60 H* 16.60 H* Estim Creat Clear Calc 4.66 4.66 Est GFR (MDRD) Af Amer 4 L 4 L Est GFR (MDRD) Non-Af 3 L 3 L BUN/Creatinine Ratio 9.2 L 9.2 L Glucose 132 H 123 H Calcium 8.3 L 7.8 L Total Bilirubin 0.40 AST 22 ALT 17 Alkaline Phosphatase 121 H Troponin I High Sens 8 Total Protein 6.8 Albumin 2.2 L Globulin 4.6 H Albumin/Globulin Ratio 0.5 L Blood Type A POSITIVE Antibody Screen NEGATIVE Crossmatch See Detail Radiography Diagnostic Testing: Clinical Impression(s) from Imaging Studies Chest X-Ray 05/16/23 11:20 IMPRESSION: Hyperinflation. The lungs are clear. Electronically Signed: Glenn Nolan MD at 12:09 EDT , Abdomen/Pelvis CT 05/16/23 12:07 IMPRESSION: Moderate degree of bilateral hydronephrosis and a general ureter down to the bladder. The bladder is filled with high density material suggestive of probable mass in probable some blood. Nonobstructive bilateral intrarenal calculi. Electronically Signed: Glenn Nolan MD at 13:50 EDT , EKG Initial EKG: Attestation: I personally reviewed and interpreted this EKG as follows: Comments: EKG interpretation. Normal sinus rhythm at 80 beats a minute. Normal axis deviation. No acute ST elevation, no acute ectopy. QTc of 456 Discharge Plan Triage Chief Complaint: Abn Labs Other Complaint: Complaint ED Provider: James Fernandez Dx/Rx/DC Orders Clinical Impression: Acute renal failure, Bladder cancer, Anemia requiring transfusions, Leukocytosis, Metabolic acidosis Primary Care Provider: Care Physician,No Primary Referrals: Care Physician,No Primary [Primary Care Provider] - Disposition Disposition: Acute Care Hospital Discharge Location: [facility]
[2023-05-16 11:09] LABS: Absolute Lymphocyte Count 0.36 X10^3/uL (0.83-4.51); Absolute Neutrophil Count 19.3 X10^3/uL (2.0-7.7); Basophil# 0.02 X10^3/uL; Basophil% 0.1 % (0-1); Eosinophil# 0.01 X10^3/uL; Hematocrit 17.2 % (40-54); Hemoglobin 5.7 g/dL (13.0-16.5); Lymphocyte # 0.36 X10^3/ul (0.83-4.51); Lymphocyte % 1.8 % (19-41); Mean Corp Hgb Conc 33.1 g/dL (32-36); Mean Corpuscular Hgb 28.2 pg (27.0-32.0); Mean Corpuscular Volume 85.1 fL (80-94); Mean Platelet Vol. 9.6 fl (6.2-12.0); Monocyte% 2.9 % (0-10); NRBC Flagged by Analyzer 0 % (0-5); Neutrophil # 19.25 X10^3/uL (2.7-7.7); Neutrophil % 94.1 % (47-70); POSITIVE COUNT YES; POSITIVE DIFFERENTIAL YES; Platelet Count 695 K/mm3 (150-450); RBC Distribution Width CV 15.9 % (11.6-14.6); RBC Distribution Width SD 49.4 fl (35.1-43.9); Red Blood Count 2.02 M/mm3 (4.6-6.2); White Blood Count 20.5 K/mm3 (4.4-11.0)
[2023-05-16 11:10] LABS: Differential Indicated SCAN CRITERIA MET
[2023-05-16 11:19] LABS: International Normalized Ratio 1.2
[2023-05-16 11:20] LABS: Partial Thromboplast Time 33.4 Seconds (24.1-36.2)
--- NOTE | 2023-05-16 11:20 | RAD_ITS ---
STUDY: X-RAY CHEST REASON FOR EXAM: Male, 68 years old. Low H/H TECHNIQUE: Single AP portable view of the chest. COMPARISON: Comparison is made with prior study June 18, 2002. FINDINGS: Hyperinflation. The lungs are clear. There is no demonstrated pleural abnormality. Normal size heart. Normal mediastinum and todd. Normal visualized pulmonary arteries. Normal visualized aortic arch and descending thoracic aorta. There is a dextroscoliosis of the thoracic spine. Normal visualized ribs, clavicles, and shoulders. There is no demonstrated abnormality of the visualized soft tissue structures of the upper abdomen. RAD/Chest 1 View (Portable) IMPRESSION: Hyperinflation. The lungs are clear. Electronically Signed: Gelnn Nolan MD at 12:09 EDT ,
[2023-05-16 11:29] LABS: Hypochromasia 2+; Platelet Estimate MOD INC (ADEQ)
[2023-05-16] MEDS: 0.9% Normal Saline (1000mL) 1,000 ML 1000 ML IV (11:29)
[2023-05-16 11:33] LABS: ALB/GLOB Ratio 0.5 RATIO (0.9-2.4); AST(SGOT) 22 U/L (15-37); Alanine Aminotransfer ALT/SGPT 17 U/L (16-61); Albumin, Serum 2.2 g/dL (3.2-5.0); Alkaline Phosphatase 121 U/L (45-117); Anion Gap 21 (5-15); BUN 153 mg/dL (7-18); BUN/Creat Ratio 9.2 RATIO (10-20); Calcium,Total 8.3 mg/dL (8.5-10.1); Chloride 90 mmol/L (98-107); EST Glomerular Filtration Rate 3 mL/min (>60); Est Glom Filt Rate - Afr Amer 4 mL/min (>60); Estimated Creatinine Clearance 4.66 ml/min; Globulin 4.6 g/dL (2.2-4.2); Glucose 132 mg/dL (74-106); Potassium 4.8 mmol/L (3.5-5.1); Protein, Total 6.8 g/dL (6.4-8.2); Sodium Level 124 mmol/L (136-145); Troponin-I HS 8 pg/mL (3.0-78.0)
--- NOTE | 2023-05-16 12:07 | CT_ITS ---
STUDY: CT ABDOMEN AND PELVIS WITHOUT CONTRAST REASON FOR EXAM: Male, 68 years old. Elevated BUN CR. History of bladder cancer and hematuria. RADIATION DOSAGE (If Supplied By Facility): CTDIvol = ( 7.32 ) mGy, DLP = ( 367.68 ) mGycm TECHNIQUE: Transaxial images were obtained from the dome of the diaphragm to the symphysis pubis without oral contrast, and without intravenous contrast. Sagittal and coronal images were reconstructed. Individualized dose optimization techniques were used for this CT. COMPARISON: Comparison is made with prior study June 15, 2022. FINDINGS: Mild degree of increased markings at the lung bases suggestive of atelectasis. Tiny bilateral pleural effusions. Minimal anterior cardial thickening. Normal liver. There are multiple small gallstones. Normal spleen. Normal pancreas. Mild degree of adrenal gland enlargement bilaterally. Punctate calculus in the upper pole calyx of the right kidney. 2 mm nonobstructive calculus in the upper pole calyx of the left kidney. Moderate degree of bilateral hydronephrosis and hydroureter down to the urinary bladder. Bilateral perinephric stranding. Normal visualized stomach. Normal small intestine. There are scattered colonic diverticula consistent with diverticulosis. The appendix is visualized and appears normal. There is scattered atherosclerotic calcification of the abdominal aorta, without a demonstrated aneurysm. Normal inferior vena cava. Normal retroperitoneum. The urinary bladder is filled with a soft tissue mass and probable blood. There is evidence of a left-sided 1.9 cm bladder diverticulum. Calcified seminal vesicles. Small bilateral inguinal hernias slightly worse on the right side. A testicle is seen in the right inguinal canal. There are degenerative changes of the visualized lumbar spine. Loss of the normal lumbar lordosis. CT/Abdomen/Pelvis without Cont IMPRESSION: Moderate degree of bilateral hydronephrosis and a general ureter down to the bladder. The bladder is filled with high density material suggestive of probable mass in probable some blood. Nonobstructive bilateral intrarenal calculi. Electronically Signed: Glenn Nolan MD at 13:50 EDT ,
[2023-05-16] MEDS: 0.9% Normal Saline (1000mL) 1,000 ML 150 ML IV (12:41)
[2023-05-16] MEDS: Acetaminophen 325 MG Tablet 650 MG PO (12:41)
[2023-05-16] MEDS: Morphine 2 MG/ML Syringe IV (12:42)
[2023-05-16 12:43] LABS: Anion Gap 18 (5-15); BUN 153 mg/dL (7-18); BUN/Creat Ratio 9.2 RATIO (10-20); Calcium,Total 7.8 mg/dL (8.5-10.1); Chloride 93 mmol/L (98-107); EST Glomerular Filtration Rate 3 mL/min (>60); Est Glom Filt Rate - Afr Amer 4 mL/min (>60); Estimated Creatinine Clearance 4.66 ml/min; Glucose 123 mg/dL (74-106); Potassium 4.9 mmol/L (3.5-5.1); Sodium Level 124 mmol/L (136-145)
[2023-05-16] MEDS: HYDROmorphone 0.5 MG/0.5 ML SYRINGE IV (14:54)
--- NOTE | 2023-05-16 15:06 | NURSING ---
[id number] CALLED [facility] FOR TRANSFER. TALKED TO GARY.. FAXED FACESHEET
--- NOTE | 2023-05-16 15:15 | ED.RN ---
REPORT GIVEN TO TRANSPORT HOSPITAL. NO BED AVAILABLE
--- NOTE | 2023-05-16 17:18 | NURSING ---
1619 CALLED FOR RIDE, ETA IS 3 HOURS
[2023-05-16] MEDS: Morphine 4 MG/ML Syringe IV (17:20)
--- NOTE | 2023-05-16 20:26 | ED.RN ---
osu given update at this time
--- NOTE | 2023-05-16 21:21 | ED.RN ---
attempted to receiving unit to inform them he was leaving [facility], no answer.
[2023-05-19 13:34] LABS: Pathologist Review Reviewed
== END 2023-05-16 21:28 | disposition short-term general hospital (02) ==
PROVIDERS: Emergency Provider Emergency Medicine; Visit Provider Emergency Medicine
DX: N17.9 Acute kidney failure, unspecified (principal); C67.9 Malignant neoplasm of bladder, unspecified; D72.829 Elevated white blood cell count, unspecified; E87.20 Acidosis, unspecified; F17.210 Nicotine dependence, cigarettes, uncomplicated; D64.9 Anemia, unspecified
CPT/HCPCS: 71045; 74176; 80048; 80053; 84484; 85025; 85610; 85730; 86850; 86900; 86901; 86920; 86922; 93005; 96361; 96374; 96375; 99285; J7030; J7050; P9016; A4216

== ENCOUNTER 2023-07-02 16:32 | Inpatient (IN) | payer MEDICARE, SELFPAY ==
[2023-07-02 16:47] VITALS: BP 123/75; PULSE 103; RESP 18; TEMP 37.1; O2SAT 97
[2023-07-02 17:08] VITALS: BMI 22.6
[2023-07-02 18:49] VITALS: O2SAT 98
[2023-07-02 19:06] VITALS: BP 115/67; PULSE 91; RESP 18; TEMP 37.2; O2SAT 97
[2023-07-02] MEDS: Polyethylene Glycol 3350 17 GM PACKET PO (19:58)
[2023-07-02] MEDS: Acetaminophen 500 MG Tablet 1000 MG PO (19:59)
[2023-07-02] MEDS: Senna/Docusate Sodium 1 Tablet 2 TABLET PO (20:00)
[2023-07-02] MEDS: Mirtazapine 15 MG Tablet PO (20:00)
[2023-07-02 22:00] VITALS: O2SAT 97
[2023-07-03] MEDS: Acetaminophen 500 MG Tablet 1000 MG PO ×3 (05:23→21:36)
[2023-07-03 06:05] LABS: Absolute Lymphocyte Count 1.15 X10^3/uL (0.83-4.51); Absolute Neutrophil Count 7.4 X10^3/uL (2.0-7.7); Basophil# 0.05 X10^3/uL; Basophil% 0.5 % (0-1); Eosinophil# 0.29 X10^3/uL; Eosinophils% 2.9 % (0-5); Hematocrit 26.4 % (40-54); Hemoglobin 8.3 g/dL (13.0-16.5); Lymphocyte # 1.15 X10^3/ul (0.83-4.51); Lymphocyte % 11.6 % (19-41); Mean Corp Hgb Conc 31.4 g/dL (32-36); Mean Corpuscular Hgb 28.4 pg (27.0-32.0); Mean Corpuscular Volume 90.4 fL (80-94); Mean Platelet Vol. 9.5 fl (6.2-12.0); Monocyte% 5.1 % (0-10); NRBC Flagged by Analyzer 0 % (0-5); Neutrophil # 7.44 X10^3/uL (2.7-7.7); Neutrophil % 75.2 % (47-70); Platelet Count 621 K/mm3 (150-450); RBC Distribution Width CV 15.6 % (11.6-14.6); Red Blood Count 2.92 M/mm3 (4.6-6.2); White Blood Count 9.9 K/mm3 (4.4-11.0)
[2023-07-03 07:01] LABS: ALB/GLOB Ratio 0.5 RATIO (0.9-2.4); AST(SGOT) 41 U/L (15-37); Alanine Aminotransfer ALT/SGPT 43 U/L (16-61); Alkaline Phosphatase 170 U/L (45-117); Anion Gap 7 (5-15); BUN 40 mg/dL (7-18); Calcium,Total 9.1 mg/dL (8.5-10.1); Chloride 108 mmol/L (98-107); Creatinine, Serum 1.54 mg/dL (0.70-1.30); EST Glomerular Filtration Rate 48 mL/min (>60); Est Glom Filt Rate - Afr Amer 58 mL/min (>60); Estimated Creatinine Clearance 48.99 ml/min; Globulin 4.2 g/dL (2.2-4.2); Glucose 86 mg/dL (74-106); Magnesium 2.1 mg/dL (1.6-2.6); Phosphorus 3.7 mg/dL (2.5-4.9); Potassium 3.6 mmol/L (3.5-5.1); Protein, Total 6.2 g/dL (6.4-8.2); Sodium Level 140 mmol/L (136-145)
[2023-07-03] MEDS: Multivitamins,Therapeutic Tablet 1 TABLET PO (08:01)
[2023-07-03] MEDS: Senna/Docusate Sodium 1 Tablet 2 TABLET PO ×2 (08:01→21:36)
[2023-07-03] MEDS: Ferrous Sulfate 325 MG Tablet PO (08:01)
[2023-07-03] MEDS: Ensure Plus High Protein 120 ML LIQUID PO (08:01)
[2023-07-03] MEDS: Flu Vacc QS2023-24(65YR UP)/PF 240 MCG/0.7 ML Syringe IM (08:02)
[2023-07-03 08:29] VITALS: BP 150/74; PULSE 82; RESP 14; TEMP 37.2; O2SAT 96
[2023-07-03 10:02] VITALS: O2SAT 96
--- NOTE | 2023-07-03 14:47 | PCM.HP.STD ---
[facility] Date of Admission: 07/02/23 Date of Service: 07/03/23 Chief Complaint: Debility to cystoprostatectomy for bladder CA with mets. [facility] Narrative CARLOS ALBERTO TORRES, is a 68 YO M with A PMH of Bladder cancer and tobacco dependence. ?He was diagnosed in June [address] Prieto. He underwent a TUR of a bladder wall tumor by Dr. Prieto in June of 2022. He went to 3/4 cycles of neoadjuvant gemcitabine/cisplatin him and failed to show up for the fourth treatment. He also failed to show up with Dr. Adam for a planned cystectomy. In April 2023 he began having gross hematuria. A CT scan of the chest abdomen and pelvis done in March 2023 showed multiple subcentimeter lung nodules, concerning for metastatic disease, and a few small nonspecific sclerotic bone lesions. The tumor was locally invasive into the muscle. There was bilateral hydronephrosis and he had bilateral nephrostomy tubes inserted. A PET scan in May 2023 was negative for mets but did show bilateral hydronephrosis. On 06/25/2023 he underwent a cystoprostatectomy at [facility] by Dr. Michael Posadas. At the time of surgery he was noted to have a bulky locally advanced bladder mass that was invading the pubic bone and the pelvic sidewall bilaterally. There was matted lymphatic tissue attached to the bladder specimen. A diverting procedure was not done and he has bilateral nephrostomy tubes. While at [facility] he was diagnosed with moderate malnutrition and postoperatively received parenteral hyperalimentation. He had chronic blood loss anemia and acute blood loss anemia related to surgery. He was transfused before surgery with 2 units of PRBC's. At the time of discharge the hemoglobin was stable at 8.7. He also had a UTI with multiple organisms and he was treated with antibiotics. Carlos Alberto was transferred to the acute inpt rehab unit at [facility] on 07/02/23 for 3 hours of therapy daily to restore independence/function at or near his level prior to the recent surgery. He is afebrile and blood pressure and heart rate are within normal limits. He is 96% saturated on room air. All lab drawn this morning was personally reviewed. White blood cell count is normal at 9.9 with a left shift. Platelets are elevated at 621,000 and the hemoglobin is 8.3, down from 8.7 yesterday at [facility]. Sodium is normal at 140 and the potassium is borderline low at 3.6. BUN is 40 with a creatinine of 1.54. Creatinine in May 2023 was 16.6 with a creatinine clearance of 4.66. This was due to bilateral hydronephrosis and he was referred for cutaneous nephrostomy tubes bilaterally. Magnesium and phosphorus are normal. Alkaline phosphatase is elevated at 170 but the bilirubin is normal. AST is 41 which is mildly elevated and the ALT is normal. There were no obvious liver mets on the PET scan. Albumin is low at 2.0. Calcium is normal at 9.1 but when corrected for hypoalbuminemia the calcium is high at 10.7. All paperwork from [facility] was personally reviewed and the EMR from [facility] was also reviewed. [facility] Medical History (Updated 07/03/23 @ 16:[address] Shalini Cortez DO) Acute on chronic blood loss anemia Bladder cancer Chronic renal failure, stage 3a Loose, teeth Malnutrition Tobacco dependence Home Medications ferrous sulfate 324 mg (65 mg iron) tablet,delayed release 324 mg PO DAILY supplement 07/02/23 [History Last Taken Unknown] hyoscyamine sulfate 0.125 mg sublingual tablet (Levsin/SL) 0.125 mg PO Q6H PRN bladder spasms 07/02/23 [History Last Taken Unknown] mirtazapine 15 mg tablet (Remeron) 15 mg PO QHS Depression 07/02/23 [History Last Taken Unknown] multivitamin 1 tab PO DAILY supplement 07/02/23 [History Last Taken Unknown] Allergy/AdvReac Type Severity Reaction Status Date / Time No Known Allergies Allergy Verified 05/16/23 10:21 Family History unable to obtain Surgical History (Updated 07/03/23 @ 16:[address] Shalini Cortez DO) H/O transurethral resection of bladder tumor (TURBT) History of tonsillectomy S/P radical cystoprostatectomy Social History (Updated 07/03/23 @ 15:[address] Shalini Cortez DO) household members: none housing: house current occupational status: retired Smoking Status: Current every day smoker tobacco type: cigarettes Smoking packs per day: 1 Smoking cigarettes per day: 20.0 Years smoked: 45 Smoking pack-years: 45.00 Tobacco: How many years used: 45 how long ago did patient quit smoking: He has cut back significantly recently and tells me that he smokes 1-2/week alcohol intake: never substance use type: does not use ROS Constitutional Constitutional: Reports fatigue and other Details: early satiety, nausea since he was not eating at [facility] and had to be on parenteral hyperalimentation. ; Denies anorexia, change in weight, chills, fever(s), night sweats or weakness Eyes Eyes: Denies blurry vision, change in vision, eye pain or loss of vision ENT HEENT: Denies abnormal hearing, dysphagia, headache(s), hearing loss, nasal congestion or sore throat Cardiovascular Cardiovascular: Reports dyspnea on exertion; Denies chest pain, edema, lightheadedness, orthopnea, palpitations, paroxysmal nocturnal dyspnea or syncope Respiratory/Chest Respiratory/Chest: Denies change in mental status, cough, dyspnea, shortness of breath at rest, shortness of breath with exertion or wheezing Gastrointestinal Gastrointestinal: Reports abdominal pain, constipation, dyspepsia, early satiety and nausea; Denies diarrhea, dysphagia, hematemesis, hematochezia or vomiting Genitourinary Genitourinary: Reports dysuria, nocturia and other Details: He now has percutaneous bilateral nephrostomy tubes post radical cystoprostatectomy. ; Denies hematuria, urinary frequency, urinary hesitancy, urinary incontinence or urinary urgency Musculoskeletal Musculoskeletal: Denies back pain, joint pain, joint swelling or neck pain Neurologic Neurologic: Denies abnormal speech, confusion, disequilibrium, dizziness, focal weakness, headache(s), paresthesias, seizures or tremor(s) Psychiatric Psychiatric: Reports depression; Denies anxiety, homicidal ideation or suicidal ideation Endocrine Endocrinology: Denies change in body appearance, polydipsia or polyuria Hematologic/Lymphatic Hematologic/Lymphatic: Denies easy bleeding, easy bruising or lymphadenopathy Allergic/Immunologic Allergic/Immunologic: Denies rhinitis, eczemia or asthma Vital Signs Vital Signs Vital Signs: 07/02/23 16:47 07/02/23 19:06 07/02/23 18:49 Temperature 98.8 F 98.9 F Temperature Source Temporal Temporal Pulse Rate 103 H 91 Pulse Strength Respiratory Rate 18 18 Respiratory Effort Respiratory Depth Respiratory Pattern Blood Pressure 123/75 H 115/67 Blood Pressure Mean 91 83 Blood Pressure Source Monitor Monitor Blood Pressure Position Sitting Sitting Blood Pressure Location Left Arm Left Arm Pulse Ox 97 97 98 Oxygen Delivery Method Room Air Room Air Room Air 07/02/23 22:00 07/02/23 22:00 07/03/23 08:29 Temperature 98.9 F Temperature Source Temporal Pulse Rate 82 Pulse Strength Normal (2+) Respiratory Rate 14 Respiratory Effort Normal Non-Labored Respiratory Depth Normal Respiratory Pattern Normal Blood Pressure 150/74 H Blood Pressure Mean 99 Blood Pressure Source Monitor Blood Pressure Position Semi-Fowlers Blood Pressure Location Left Arm Pulse Ox 97 96 Oxygen Delivery Method Room Air Room Air 07/03/23 09:25 07/03/23 10:02 Temperature Temperature Source Pulse Rate Pulse Strength Normal (2+) Respiratory Rate Respiratory Effort Respiratory Depth Respiratory Pattern Blood Pressure Blood Pressure Mean Blood Pressure Source Blood Pressure Position Blood Pressure Location Pulse Ox 96 Oxygen Delivery Method Room Air Weight Weight: 161 lb 13.109 oz Body Mass Index (BMI) 22.6 Physical Exam Const alert Constitutional Narrative: He is sitting by the window in the recliner and he is pleasant and focused. Making good eye contact. General Appearance: cooperative and appears older than stated age Nutritional Appearance: thin HEENT normocephalic Head and Scalp: atraumatic Nose: external nose normal External Ear: external ears normal Mouth: dry mucous membranes Teeth and Gingiva: poor dentition Eyes conjunctivae normal and no scleral icterus General Eye: normal appearance of both eyes Neck Neck Narrative: He has a R carotid bruit General: trachea midline Carotids: normal carotid upstroke Chest Chest: symmetrical chest wall rise Resp normal respiratory effort, normal air movement and clear to auscultation bilaterally Effort and Inspection: able to speak in complete sentences Cardio regular rate, regular rhythm, S1 normal heart sound, S2 normal heart sound, no murmurs, no rub and no gallops Cardio Narrative: No ectopy GI GI Narrative: Nondistended, bowel sounds heard in all quadrants, soft to palpation. There is a incision on the midline of the abdomen that is intact with norberto present. There is no dehiscence, no mal-incisional erythema and no discharge. He has a few small bullae that are linear on his abdomen and there is some blood in the bullae. They appear to be in the area that would be where he had tape to dress the abdominal incision. They are nontender and he denies pruritus. Inspection: Negative for abdominal aortic bruit no CVA tenderness Extremity no calf tenderness and no pedal edema Skin no jaundice Skin Narrative: No rashes. The bullae on the anterior abd wall are detailed in the extremity dictation. Hair: general thinning Neuro CN's II-XII intact bilaterally and moves all extremities Sensorium / Orientation: oriented to person, oriented to place and oriented to time Psych Psych Narrative: He has a flat affect but, he is very polite and pleasant when I am talking with him. He only went to 8th grade. Thought process seems to be normal and he makes good eye contact. Appearance: grossly normal and appropriate Attitude: calm Activity / Motor Behavior: appropriate eye contact Speech: normal speech Mood & Affect: flat affect Thought Process: normal thought process Thought Content: No suicidality Attention / Concentration: attention grossly intact Results Lab / Micro Data 07/03/23 05:10 07/03/23 05:10 Labs: Laboratory Results - last 24 hr 07/03/23 05:10: WBC 9.9, RBC 2.92 L, Hgb 8.3 L, Hct 26.4 L, MCV 90.4, MCH 28.4, MCHC 31.4 L, RDW Std Deviation 51.0 H, RDW Coeff of Kathi 15.6 H, Plt Count 621 H, MPV 9.5, Immature Gran % (Auto) 4.700 H, Neut % (Auto) 75.2 H, Lymph % (Auto) 11.6 L, [place] % (Auto) 5.1, Eos % (Auto) 2.9, Baso % (Auto) 0.5, Absolute Neuts (auto) 7.4, Absolute Lymphs (auto) 1.15, Nucleated RBC % 0, Sodium 140, Potassium 3.6, Chloride 108 H, Carbon Dioxide 25.0, Anion Gap 7, BUN 40 H, Creatinine 1.54 H, Estim Creat Clear Calc 48.99, Est GFR (MDRD) Af Amer 58 L, Est GFR (MDRD) Non-Af 48 L, BUN/Creatinine Ratio 26.0 H, Glucose 86, Calcium 9.1, Phosphorus 3.7, Magnesium 2.1, Total Bilirubin 0.30, AST 41 H, ALT 43, Alkaline Phosphatase 170 H, Total Protein 6.2 L, Albumin 2.0 L, Globulin 4.2, Albumin/Globulin Ratio 0.5 L Assessment & Plan Assessment/Plan (1) Debility: (2) Bladder cancer: QUALIFIERS: Bladder location: overlapping sites Qualified Code(s): C67.8 - Malignant neoplasm of overlapping sites of bladder (3) S/P radical cystoprostatectomy: (4) Acute on chronic blood loss anemia: (5) Malnutrition: QUALIFIERS: Malnutrition type: protein-calorie malnutrition Protein-calorie malnutrition severity: moderate Qualified Code(s): E44.0 - Moderate protein-calorie malnutrition (6) Acute bullous dermatitis: (7) Hypercalcemia: (8) Elevated alkaline phosphatase level: (9) Chronic renal failure, stage 3a: (10) Tobacco dependence: (11) Poor dental hygiene: PLAN: Plan PLAN PT for gait stability OT for ADL's Analgesics as needed Bowel protocol Fall precautions Assess for Anxiety/Depression-continue mirtazapine 15 mg p.o. nightly to stimulate appetite GI prophylaxis -Protonix 20 mg p.o. daily DVT prophylaxis with SCDbritney and JUAN thao - will talk with surgery to see when it would be safe to start pharmacologic DVT prophylaxis since this pt has CA and is at increased risk for DVT. Follow up with urologic surgery following DC from [facility]. He does not have a PCP and he should. Will have the give him a list of local PCP's accepting new patients. He will also follow up with Dr. Baer. AM lab including CMP, CBC, Mag and Phos -all personally reviewed Encouraged increased fluid intake. He has no physical signs of hypercalcemia at this time but, if he develops symptoms or if the calcium continues to increase will hydrate and consider pamidronate. Recheck a BMP and an H&H on Friday and also check a PTH. The e commerce strategist is monitoring his intake and providing supplements. Track his weight. Order I&O's. He ws diagnosed with acute on chronic malnutrition at [facility] and had to receive parenteral nutrition - he is not eating well now and I am going to consider him malnourished and monitor him very closely Charges/Coding Visit Charges Inpatient E&M: 73925 Init Hosp L3
--- NOTE | 2023-07-03 14:54 | CASEMGMT ---
Social Work Sw met with patient in room to complete assessment. Sw introduced self and explained reason for sw questions. Patient alert and oriented and able to answer questions asked. Patient reported to sw that he lives along in a mobile home. Patient reports that he is independent with most activities of daily living including: getting dressed, making meals and daily vb net programmer/ tasks. Although patient is able to independently get ready/ dressed, he would benefit from assistance with meals, vb net programmer and showering. Patient is not connected to services at this time and has limited natural supports. Patient's BIMS score was 9/15. Jamila Roman, SYBASE DEVELOPER, CAT SCAN TECHNOLOGIST
--- NOTE | 2023-07-03 16:35 | REHABEVAL_ITS ---
Admission Information Primary Diagnosis:: Debility secondary to radical cystoprostatectomy for bladder cancer Status Changes from Prescreening?: No changes Identified Actual Problem List:: Skin Intergrity, Pain, ALteration in Cmfrt, Depression, Alteration in Sleep, Alteration in Nutrition, Mobility Impaired, Self Care Deficit, Fluid Change-Dehydration and Alteration-Leisure Activ. Potential Problem List:: DVT, Bleeding, Infection, UTI, Aspiration, Falls, Skin Integrity and Depression Risk of Complications DVT: JUAN Hose and Sequential Compression Device Bleeding: Monitor Lab Values, Nursing to Teach Precautions for anti-coagulation therapy., Wound, if applicable, to be assessed every shift. and Stroke patients assessed for lethargy or change in status. Infection: Clinical Staff to Monitor for S/S of infection: and S/S of infection include fever, redness, warmth, etc. Urinary Tract Infection: Monitor for frequency, burning, discomfort, or incont inence. and Nursing will obtain urine sample for urinalysis and C&S when ordered. Aspiration: Clinical staff will monitor for coughing, drooling, congestion., Speech will evaluate swallowing and dsyphasia. and Nursing will monitor patient swallowing during meals. Falls: Patient will be evaluated for Fall Precautions and Patient will be placed on Fall Precautions as indicated per protocol. Skin Breakdown: Nursing will assess skin daily using assessment tool. and Nursing will place on Skin Breakdown Precautions as indicated. Pain: Clinical staff will assess patient's pain level per protocol., Medications will be given, if needed, and the pain level reassessed. and Other methods: Massage, distraction, decrease stimulus, etc. used PRN. Plan of Care Patient requires physician specializing in physical medicine and rehab oversight to provide close medical supervision of rehab issues including: Pain Management, Sleep Problems, Bowel and Bladder, Medical and co-morbidity Management, DVT prophylaxis, Rehabilitation Leadership and Coordination of treatment team Patient needs Physical Therapy: For a minimum of 1 hour and At least 5 out of 7 days Patient needs Physical Therapy to improve:: Mobility, Strengthening, Transfers, Stretching, ROM, Endurance, Stairs, Gait and Balance Patient needs Occupational Therapy: For a minimum of 1 hour and At least 5 out of 7 days Patient needs Occupational Therapy to improve ADL's incl.: Eating, Grooming, Bathing, Dressing, Toileting, Toilet transfers, Community Reintegration, Higher functioning activities, Household tasks, Adaptive Equipment, Splinting and Other activities as determined Patient requires speech therapy: For a minimum of 1 hour and At least 5 out of 7 days Patient requires speech therapy for: Swallowing, Cognition, Language Skills and Compensatory Strategies Patient requires 24/ Rehabilitation Nursing for: Pain Issues, Identifying and preventing risk factors, Monitoring and reporting current medical conditions, Assisting with ambulation, transfer, and all ADL's, Teaching patients about disease process and medications, Family teaching, Providing safe environment, Bowel and Bladder Issues, Skin integrity and Medication Management Patient needs Drafting Detailer/ Case Management for: Discharge Planning, Arranging Home Equipment or Services and Family Interventions Patient needs Dietary and Nutrition Services for: Adequate Nutrition, Nutritional Supplements and Nutritional Education Goals Patient will remain: free from falls Patient will perform bed mobility at: MOD I level of assist. Patient will complete transfers from bed to chair at: MOD I level of assist. Patient will ambulate: - (500 feet with the least restrictive device indepen dently on various surfaces.) Patient will complete upper body dressing at: MOD I level of assist. Patient will complete lower body dressing at: MOD I level of assist. (With adaptive equipment as needed) Patient will complete toileting at: MOD I level of assist. Patient will perform bathing at: MOD I level of assist. Patient will complete grooming at: MOD I level of assist. Patient will complete home management skills at: MOD I level of assist. Patient will achieve: 12 stairs (12 stairs with 1 handrail at standby assist to allow access to the bedroom.) and - Patient will have pain level of: of 3 or less Patient's skin will: remain intact Patient will receive: adequate nutrition. Discharge Planning Pt Prognosis for Sig. Practical Improv. w/in Reasonable Time: Good Estimated Length of stay (days): 14 Anticipated D/C Destination: Home with Outpt Therapy Was Preadmission Assessment Accurate?: Yes
[2023-07-03 19:33] VITALS: BP 137/75; PULSE 89; RESP 16; TEMP 36.7; O2SAT 96
[2023-07-03] MEDS: Mirtazapine 15 MG Tablet PO (21:36)
[2023-07-04] MEDS: Acetaminophen 500 MG Tablet 1000 MG PO ×3 (05:50→22:26)
[2023-07-04 06:16] LABS: Anion Gap 7 (5-15); BUN 38 mg/dL (7-18); BUN/Creat Ratio 23.2 RATIO (10-20); Chloride 107 mmol/L (98-107); Creatinine, Serum 1.64 mg/dL (0.70-1.30); EST Glomerular Filtration Rate 45 mL/min (>60); Est Glom Filt Rate - Afr Amer 54 mL/min (>60); Glucose 89 mg/dL (74-106); Potassium 3.5 mmol/L (3.5-5.1); Sodium Level 138 mmol/L (136-145)
[2023-07-04 07:44] VITALS: BP 126/73; PULSE 85; RESP 15; TEMP 37.5; O2SAT 98
[2023-07-04] MEDS: Ensure Plus High Protein 120 ML LIQUID PO ×2 (08:37→11:31)
[2023-07-04] MEDS: Multivitamins,Therapeutic Tablet 1 TABLET PO (08:38)
[2023-07-04] MEDS: Ferrous Sulfate 325 MG Tablet PO (08:38)
[2023-07-04] MEDS: Senna/Docusate Sodium 1 Tablet 2 TABLET PO ×2 (08:39→22:27)
[2023-07-04] MEDS: Pantoprazole Sodium 20 MG Tablet PO (08:39)
--- NOTE | 2023-07-04 10:40 | PCM.PROGNOTE ---
Subjective Subjective Afebrile VSS-blood pressures within normal limits and so is the heart rate. Temp was 99.5 this AM. Maintaining appropriate oxygen saturation on RA Oral intake is good for food and fluids. Discussed with nursing - no problems that need addressed Reviewed the PT/OT/ST notes Medication list reviewed. He has not taken any OXY since admission to rehab When I asked why how he was feeling today he said terrible. He is having increasing abdominal pain and he feels the gait belt being around him exacerbates his pain. He has not been taking anything but Tylenol for pain. With this pain he does not feel like eating and has some nausea. He denies lightheadedness, cephalgia, palpitations, chest pain, shortness of breath, cough, dysuria and calf pain. He feels very weak and tired. Objective Data Objective Data Vital Signs: Vital Signs Temp Pulse Resp BP Pulse Ox O2 Del Method 99.5 F H 85 15 126/73 H 98 Room Air 07/04/23 07:44 07/04/23 07:44 07/04/23 07:44 07/04/23 07:44 07/04/23 07:44 07/04/23 07:44 Oxygen Delivery Method Room Air Weight: 161 lb 13.109 oz Body Mass Index (BMI) 22.6 Intake & Output: Intake and Output for Last 24 Hours 07/02/23 07/03/23 07/04/23 23:59 23:59 23:59 Intake Total 120 / 570 2190 / 2190 200 / 200 Output Total 350 / 950 2500 / 2500 700 / 700 Balance -230 / -380 -310 / -310 -500 / -500 Lab / Micro Data 07/05/23 07:14 07/04/23 05:15 Labs: Laboratory Results - last 24 hr 07/04/23 05:15: Sodium 138, Potassium 3.5, Chloride 107, Carbon Dioxide 24.0, Anion Gap 7, BUN 38 H, Creatinine 1.64 H, Estim Creat Clear Calc 46.00, Est GFR (MDRD) Af Amer 54 L, Est GFR (MDRD) Non-Af 45 L, BUN/Creatinine Ratio 23.2 H, Glucose 89, Calcium 9.0 Physical Exam Const alert and oriented x3 Constitutional Narrative: He is sitting by the window in the recliner and he is pleasant and focused. Making good eye contact. General Appearance: cooperative Nutritional Appearance: thin HEENT moist oral mucous membranes Resp normal respiratory effort, normal air movement and clear to auscultation bilaterally Effort and Inspection: able to speak in complete sentences Cardio regular rate, regular rhythm, no murmurs, no rub and no gallops Cardio Narrative: No ectopy GI GI Narrative: Mildly distended and tympanic, incisions are intact with no dehiscence, no purulent discharge and no mal-incisional erythema. The abdomen is diffusely tender and patient guards with even light palpation. Inspection: Negative for abdominal aortic bruit no CVA tenderness Extremity no calf tenderness and no pedal edema Skin no jaundice Skin Narrative: No rashes. The bullae on the anterior abd wall are detailed in the extremity dictation. Assessment & Plan Assessment/Plan (1) Debility: (2) Bladder cancer: QUALIFIERS: Bladder location: overlapping sites Qualified Code(s): C67.8 - Malignant neoplasm of overlapping sites of bladder (3) S/P radical cystoprostatectomy: (4) Acute on chronic blood loss anemia: (5) Malnutrition: QUALIFIERS: Malnutrition type: protein-calorie malnutrition Protein-calorie malnutrition severity: moderate Qualified Code(s): E44.0 - Moderate protein-calorie malnutrition (6) Acute bullous dermatitis: (7) Hypercalcemia: (8) Elevated alkaline phosphatase level: (9) Chronic renal failure, stage 3a: (10) Tobacco dependence: (11) Poor dental hygiene: (12) Abdominal distention: PLAN: Plan 1. Continue therapy 2. Send a urine sample from the nephrostomy tube for a UA 3. Schedule 5 milligrams of oxycodone 3 times daily and 10 mg nightly. 4. Continue Remeron 15 mg p.o. nightly. Siddharth denies feeling depressed. 5. He will follow-up with Cyrus Urena NP at the [facility] post discharge. Charges/Coding Visit Charges Inpatient E&M: 46131 Subs Hosp L2
[2023-07-04] MEDS: oxyCODONE 5 MG Tablet PO (14:32)
[2023-07-04 15:02] LABS: Bacteria 0 SEEN /hpf (None Seen); Mucous, Urine 0 SEEN /hpf (<or=2+); Red Blood Cells-Urine 0 SEEN /hpf (0-5); Squamous Epithelial Cells - UA 0 SEEN /hpf (0-5)
--- NOTE | 2023-07-04 15:03 | RAD_ITS ---
STUDY: X-RAY - ABDOMEN/PELVIS REASON FOR EXAM: Male, 68 years old. Abd pain and distension TECHNIQUE: Single AP view of the abdomen / pelvis. COMPARISON: None. FINDINGS: Normal visualized lung bases. There is an unremarkable bowel gas pattern. Gas is seen down to the rectum. Bilateral percutaneous nephrostomy tubes are visualized. Normal soft tissue structures. There are diffuse degenerative changes of the visualized lumbar spine. RAD/Abdomen Single View IMPRESSION: Gas is seen throughout the colon down to the rectum. Bilateral percutaneous nephrostomy tubes are visualized. Electronically Signed: Glenn Nolan MD at 15:22 EDT ,
[2023-07-04 15:25] LABS: Color, Urine Yellow (Yellow); Glucose, Dipstick 50 mg/dl (Normal); Ketone-Dipstick Negative (Negative); Leukocyte Esterase-Dipstick Negative /ul (Negative); Nitrite-Dipstick Negative (Negative); Occult Blood-Urine 25 /ul (Negative); Protein-Dipstick 15 mg/dl (Negative); Specific Gravity, Urine 1.015 (1.002-1.030); Urine Bilirubin Dipstick Negative (Negative); Urine Clarity Sl. Cloudy (Clear); Urine Urobilinogen Normal (Normal)
--- NOTE | 2023-07-04 17:02 | NURSING ---
Addendum entered by Radha Momin 07/04/23 17:13: MD notified- Per MD order Uric Acid level to be checked. Order put in by RN. Original Note: Alberto Bernal in lab patient has unidentified crystals in urine specimen. They are going to save specimen and further investigate w/ colleagues- For now under UA note there will be some unidentified crystals noted until further notice.
[2023-07-04 17:17] LABS: White Blood Cells 0-5 SEEN /hpf (0-5)
[2023-07-04 19:22] LABS: Uric Acid 8.5 mg/dL (3.5-7.2)
[2023-07-04 22:00] VITALS: BP 123/75; PULSE 83; RESP 16; TEMP 36.6; O2SAT 98
[2023-07-04] MEDS: Mirtazapine 15 MG Tablet PO (22:26)
[2023-07-04] MEDS: oxyCODONE 5 MG Tablet 10 MG PO (22:26)
[2023-07-05] MEDS: Acetaminophen 500 MG Tablet 1000 MG PO ×3 (05:51→21:07)
[2023-07-05] MEDS: Pantoprazole Sodium 20 MG Tablet PO (07:48)
[2023-07-05] MEDS: Allopurinol 100 MG Tablet 200 MG PO (07:48)
[2023-07-05] MEDS: Senna/Docusate Sodium 1 Tablet 2 TABLET PO (07:48)
[2023-07-05] MEDS: Ferrous Sulfate 325 MG Tablet PO (07:48)
[2023-07-05] MEDS: Multivitamins,Therapeutic Tablet 1 TABLET PO (07:48)
[2023-07-05] MEDS: Polyethylene Glycol 3350 17 GM PACKET PO (07:50)
[2023-07-05 08:09] LABS: Hematocrit 25.1 % (40-54); Hemoglobin 7.6 g/dL (13.0-16.5)
[2023-07-05 08:31] VITALS: BP 129/74; PULSE 79; RESP 16; TEMP 36.6; O2SAT 98
[2023-07-05 08:57] LABS: Albumin, Serum 2.1 g/dL (3.2-5.0)
--- NOTE | 2023-07-05 12:08 | PCM.PROGNOTE ---
Subjective Subjective Afebrile VSS Maintaining appropriate oxygen saturation on RA Oral intake is good. He ate 75 to 100% of his breakfast today. I reviewed the intake and output from yesterday and he had 440 in and 2030 out for fluid balance of -1590. He has been in negative fluid balance since admission to rehab. Discussed with nursing - no problems that need addressed Reviewed the PT/OT/ST notes - getting angry with the therapists yesterday and today and not wanting to brush his teeth, because he does not at home, or change his soiled underwear. Medication list reviewed. Despite being in negative fluid balance hemoglobin dropped to 7.6 from 8.3 at admission. UA was 8.5 and he has crystals in the urine. Started on Allopurinol. UA yesterday had 0 RBCs and 0-5 WBCs with no bacteria and no squamous epithelial cells seen. Siddharth continues to deny lightheadedness, cephalgia, shortness of breath at rest, cough, nausea, dysuria and calf pain. He is passing gas and he had a bowel movement today. He denies eructation. His abdomen is less tender today but he still guards with anything but superficial palpation. He tells me that his pain is better today on the scheduled oxycodone. He slept better last night. He tells me that he is not nauseated and does not feel as bloated as he did. He is eating 75 to 100% of his meals. Objective Data Objective Data Vital Signs: Vital Signs Temp Pulse Resp BP Pulse Ox O2 Del Method 97.8 F 79 16 129/74 H 98 Room Air 07/05/23 08:31 07/05/23 08:31 07/05/23 08:31 07/05/23 08:31 07/05/23 08:31 07/05/23 08:31 Oxygen Delivery Method Room Air Weight: 161 lb 13.109 oz Body Mass Index (BMI) 22.6 Intake & Output: Intake and Output for Last 24 Hours 07/03/23 07/04/23 07/05/23 23:59 23:59 23:59 Intake Total 2190 / 2190 440 / 440 360 / 360 Output Total 2500 / 2500 2029 / 2029 700 / 700 Balance -310 / -310 -1590 / -1590 -340 / -340 Lab / Micro Data 07/05/23 07:14 07/04/23 05:15 Labs: Laboratory Results - last 24 hr 07/04/23 05:15: Uric Acid Cancelled 07/04/23 11:30: Urine Color Yellow, Urine Clarity Sl. Cloudy, Urine pH 6.0, Ur Specific [place] 1.015, Urine Protein 15 H, Urine Glucose (UA) 50 H, Urine Ketones Negative, Urine Occult Blood 25 H, Urine Nitrite Negative, Urine Bilirubin Negative, Urine Urobilinogen Normal, Ur Leukocyte Esterase Negative, Urine RBC 0 SEEN, Urine WBC 0-5 SEEN, Ur Squamous Epith Cells 0 SEEN, Urine Bacteria 0 SEEN, Urine Mucus 0 SEEN 07/04/23 19:00: Uric Acid 8.5 H 07/05/23 07:14: Hgb 7.6 L, Hct 25.1 L, Albumin 2.1 L Radiography Diagnostic Testing: Radiology Impression KUB X-Ray 07/04/23 15:03 IMPRESSION: Gas is seen throughout the colon down to the rectum. Bilateral percutaneous nephrostomy tubes are visualized. Electronically Signed: Glenn Nolan MD at 15:22 EDT , Physical Exam Const alert, oriented x3 and no apparent distress Constitutional Narrative: He is always pleasant with me and very polite. General Appearance: cooperative HEENT moist oral mucous membranes Resp clear to auscultation bilaterally Cardio regular rate, regular rhythm and no gallops GI GI Narrative: The abdomen is mildly distended and tympanic but less so than yesterday. He has bowel sounds present in all quadrants but they are mildly hypoactive. The incisions are intact with no mal-incisional erythema and no purulent discharge. He still tends to guard with more than light palpation of the abdomen. The urine in the nephrostomy tubes is clear and pale yellow. Extremity no calf tenderness General Extremity: Negative for edema Skin General Skin Exam: no breakdown Rashes: no rashes Psych Psych Narrative: Gets a little aggravated at times because he is tired and painful. He is always pleasant and polite with me. He is sleeping better at night. Assessment & Plan Assessment/Plan (1) Debility: (2) Bladder cancer: QUALIFIERS: Bladder location: overlapping sites Qualified Code(s): C67.8 - Malignant neoplasm of overlapping sites of bladder (3) S/P radical cystoprostatectomy: (4) Acute on chronic blood loss anemia: (5) Malnutrition: QUALIFIERS: Malnutrition type: protein-calorie malnutrition Protein-calorie malnutrition severity: moderate Qualified Code(s): E44.0 - Moderate protein-calorie malnutrition (6) Acute bullous dermatitis: (7) Hypercalcemia: (8) Elevated alkaline phosphatase level: (9) Chronic renal failure, stage 3a: (10) Tobacco dependence: (11) Poor dental hygiene: (12) Abdominal distention: PLAN: Plan 1. Continue therapy 2. Check a Hemoccult stool 3. Check iron studies and a reticulocyte count 4. Crystals were found in his urine yesterday and a uric acid was checked and it was elevated at 8.5. He was started on allopurinol. 5. Check a CBC with differential and BMP in the a.m. 6. Start normal saline IV 7. Supplement potassium to keep it around 4 Charges/Coding Visit Charges Inpatient E&M: 73881 Subs Hosp L2
[2023-07-05 12:49] LABS: Platelet Count 652 K/mm3 (150-450); RET-HE 31.6 pg (30-35); Reticulocyte Count 2.24 % (0.5-1.5)
[2023-07-05 13:17] LABS: Ferritin 535 ng/mL (26-388); Iron 25 ug/dL (65-175); Iron Binding Capacity,Total 251 ug/dL (250-450)
[2023-07-05] MEDS: Ensure Plus High Protein 120 ML LIQUID PO (13:24)
[2023-07-05] MEDS: Potassium Chloride Oral Tablet 20 MEQ 40 MEQ PO (13:24)
[2023-07-05] MEDS: SimETHICONE 80 MG Chewable Tablet PO ×2 (18:45→21:08)
--- NOTE | 2023-07-05 19:30 | NURSING ---
Patient had call light on and when FIELD MARKETER entered room, he became irate and cursing at FIELD MARKETER due to he had to have a bowel movement and he waited a few minutes and now I cannot even go! FIELD MARKETER and another nurse provided 1:1 and agitation continued with verbal aggression. FIELD MARKETER got patient back to bed safely from the bathroom. Will monitor.
[2023-07-05] MEDS: 0.9% Normal Saline (1000mL) 1,000 ML 100 ML IV (19:53)
[2023-07-05 19:58] VITALS: BP 111/66; PULSE 84; RESP 17; TEMP 37.1; O2SAT 97
[2023-07-05 20:00] VITALS: O2SAT 97
[2023-07-05] MEDS: Mirtazapine 15 MG Tablet PO (21:07)
[2023-07-05] MEDS: oxyCODONE 5 MG Tablet 10 MG PO (21:10)
[2023-07-06] MEDS: 0.9% Normal Saline (1000mL) 1,000 ML 100 ML IV ×2 (05:01→15:48)
[2023-07-06] MEDS: Acetaminophen 500 MG Tablet 1000 MG PO ×3 (05:02→21:18)
[2023-07-06 05:30] LABS: Absolute Lymphocyte Count 1.14 X10^3/uL (0.83-4.51); Absolute Neutrophil Count 7.9 X10^3/uL (2.0-7.7); Basophil# 0.05 X10^3/uL; Basophil% 0.5 % (0-1); Eosinophil# 0.21 X10^3/uL; Eosinophils% 2.1 % (0-5); Hematocrit 26.7 % (40-54); Hemoglobin 8.4 g/dL (13.0-16.5); Lymphocyte # 1.14 X10^3/ul (0.83-4.51); Lymphocyte % 11.4 % (19-41); Mean Corp Hgb Conc 31.5 g/dL (32-36); Mean Corpuscular Hgb 28.6 pg (27.0-32.0); Mean Corpuscular Volume 90.8 fL (80-94); Mean Platelet Vol. 9.4 fl (6.2-12.0); Monocyte# 0.54 X10^3/uL; Monocyte% 5.4 % (0-10); NRBC Flagged by Analyzer 0 % (0-5); Neutrophil % 79.1 % (47-70); Platelet Count 591 K/mm3 (150-450); RBC Distribution Width CV 15.7 % (11.6-14.6); RBC Distribution Width SD 51.7 fl (35.1-43.9); Red Blood Count 2.94 M/mm3 (4.6-6.2)
[2023-07-06 06:10] LABS: Anion Gap 6 (5-15); BUN 29 mg/dL (7-18); BUN/Creat Ratio 15.8 RATIO (10-20); Calcium,Total 8.9 mg/dL (8.5-10.1); Chloride 108 mmol/L (98-107); Creatinine, Serum 1.84 mg/dL (0.70-1.30); EST Glomerular Filtration Rate 39 mL/min (>60); Est Glom Filt Rate - Afr Amer 48 mL/min (>60); Glucose 89 mg/dL (74-106); Potassium 4.5 mmol/L (3.5-5.1); Sodium Level 139 mmol/L (136-145)
[2023-07-06 08:00] VITALS: BP 124/73; PULSE 81; RESP 17; TEMP 37.1; O2SAT 97
[2023-07-06] MEDS: Potassium Chloride Oral Tablet 20 MEQ PO (09:02)
[2023-07-06] MEDS: Allopurinol 100 MG Tablet 200 MG PO (09:02)
[2023-07-06] MEDS: Ferrous Sulfate 325 MG Tablet PO (09:02)
[2023-07-06] MEDS: SimETHICONE 80 MG Chewable Tablet PO ×4 (09:02→21:19)
[2023-07-06] MEDS: Pantoprazole Sodium 20 MG Tablet PO (09:04)
[2023-07-06] MEDS: Multivitamins,Therapeutic Tablet 1 TABLET PO (09:04)
[2023-07-06] MEDS: Sodium Ferric Gluconat 125 MG in 0.9% Normal Saline 100 ML 110 MG IV (12:57)
[2023-07-06 19:35] VITALS: BP 139/80; PULSE 90; RESP 20; TEMP 37.2; O2SAT 92
[2023-07-06] MEDS: oxyCODONE 5 MG Tablet 10 MG PO (21:19)
[2023-07-06] MEDS: Mirtazapine 15 MG Tablet PO (21:19)
[2023-07-07 06:00] VITALS: BMI 23.1
[2023-07-07] MEDS: Acetaminophen 500 MG Tablet 1000 MG PO ×3 (06:15→21:25)
[2023-07-07 08:00] VITALS: BP 142/79; PULSE 83; RESP 16; TEMP 37; O2SAT 98
[2023-07-07 08:40] LABS: PTHIN 24.8 pg/mL (18.4-80.1)
[2023-07-07] MEDS: Potassium Chloride Oral Tablet 20 MEQ PO (09:57)
[2023-07-07] MEDS: Multivitamins,Therapeutic Tablet 1 TABLET PO (09:57)
[2023-07-07] MEDS: Allopurinol 100 MG Tablet 200 MG PO (09:57)
[2023-07-07] MEDS: Pantoprazole Sodium 20 MG Tablet PO (09:58)
[2023-07-07] MEDS: SimETHICONE 80 MG Chewable Tablet PO ×4 (09:58→21:25)
--- NOTE | 2023-07-07 11:00 | PCM.PROGNOTE ---
Subjective Subjective Siddharth was seen on team rounds today. No family was available to participate. Afebrile VSS - BP is adequately controlled. Maintaining appropriate oxygen saturation on RA Oral intake is good Fluid balance yesterday was +1165 and overnight he was +857. He was able to drink 1980 cc yesterday and had 1000 overnight. His weight today is 165.6 pounds, up from 161.8 at admission. Discussed with nursing - no problems that need addressed Reviewed the PT/OT notes Medication list reviewed. Hemoglobin is stable and was 8.4 yesterday. The white blood cell count was normal and the immature granulocytes are down to 1.5 from 4.7 at admission to rehab. The reticulocyte count is appropriately increased. Sodium and potassium are normal. The BUN was 29 yesterday, down from 38 on 07/04/2023 but the creatinine went up to 1.84 from 1.64 on 07/04/2023. Iron studies showed a decreased serum iron at 25 and a decreased iron saturation at 10. Ferritin is 535,000 but ferritin is an acute phase reactant and it is likely increased secondary to inflammation from recent surgery. Siddharth states that the abdominal pain is somewhat better today. It is less distended and he denies nausea. He tells me he slept well last night and he is eating well. He denies chest pain, shortness of breath, cough, palpitations, lightheadedness, nausea/vomiting, dysuria and calf tenderness. He still has some abdominal pain but this is not surprising given the extensive cystoprostatectomy and bilateral nephrostomy tubes. Objective Data Objective Data Vital Signs: Vital Signs Temp Pulse Resp BP Pulse Ox O2 Del Method 98.6 F 83 16 142/79 H 98 Room Air 07/07/23 08:00 07/07/23 08:00 07/07/23 08:00 07/07/23 08:00 07/07/23 08:00 07/07/23 08:00 Oxygen Delivery Method Room Air Weight: 165 lb 9.074 oz Body Mass Index (BMI) 23.1 Intake & Output: Intake and Output for Last 24 Hours 07/06/23 07/06/23 07/07/23 00:59 23:59 23:59 Intake Total 1956.67 / 1956.67 Output Total 1100 / 1100 Balance 856.67 / 856.67 Lab / Micro Data 07/06/23 04:40 07/06/23 04:40 Labs: Laboratory Results - last 24 hr 07/05/23 07:14: PTH Intact 24.8 Micro: Microbiology 07/05/23 15:11 Stool Stool Occult Blood (WAYNE) - Final Occult Blood Positive Physical Exam Const alert, oriented x3 and no apparent distress Constitutional Narrative: He is always pleasant with me and very polite. General Appearance: cooperative HEENT moist oral mucous membranes Resp clear to auscultation bilaterally Cardio regular rate, regular rhythm and no gallops GI GI Narrative: The abdomen is only mildly distended today and he has less tympany. He is less tender with palpation. The incision is intact with no dehiscence, no mal-incisional erythema and no purulent discharge. Nephrostomy tubes are draining clear pale urine. Bowel sounds are present in all 4 quadrants but somewhat decreased. He had 4 bowel movements over the weekend. Extremity no calf tenderness General Extremity: Negative for edema Skin General Skin Exam: no breakdown Rashes: no rashes Assessment & Plan Assessment/Plan (1) Debility: (2) Bladder cancer: QUALIFIERS: Bladder location: overlapping sites Qualified Code(s): C67.8 - Malignant neoplasm of overlapping sites of bladder PLAN: He is a patient of Dr. Baer and will follow up with Dr. Baer post [place]. (3) S/P radical cystoprostatectomy: PLAN: Also has BL nephrostomy tubes. (4) Acute on chronic blood loss anemia: (5) Malnutrition: QUALIFIERS: Malnutrition type: protein-calorie malnutrition Protein-calorie malnutrition severity: moderate Qualified Code(s): E44.0 - Moderate protein-calorie malnutrition (6) Acute bullous dermatitis: PLAN: resolved (7) Hypercalcemia: PLAN: The serum calcium corrected for hypoalbuminemia is 10.4. PTH is normal. He denies any history of gout. (8) Elevated alkaline phosphatase level: (9) Chronic renal failure, stage 3a: (10) Tobacco dependence: (11) Poor dental hygiene: (12) Abdominal distention: (13) Hyperuricemia: PLAN: Suspect this is due to recent surgery and to cancer. He is asymptomatic at this time and has no hematuria. He was started on Allopurinol 200 mg daily. Would recheck a uric acid level in 1 month and also a CBC. (14) Crystalluria: PLAN: Plan 1. Continue therapy 2. Recheck a BMP and H&H on Friday 3. He had 3 bowel movements yesterday, 2 small soft bowel movements and 1 medium formed. He was started on simethicone over the weekend for gaseous distention of his abdomen. 4. He has not been drinking the Ensure plus high-protein ordered by the dietitian but his intake is usually 75 to 100% now. Will contact the financial aid advisor and see if ther is another source of protein we can give him to supplement his diet. 5. Will be going to stay with his brother at [place]. 6. I instructed him to drink 2 L to 2.5 L of water daily to prevent formation of kidney stones. Charges/Coding Visit Charges Inpatient E&M: 99533 Subs Hosp L2
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
[2023-07-07] MEDS: 0.9% Saline Lock 10 ML Syringe IV ×2 (13:15→21:29)
[2023-07-07 14:46] LABS: Other Crystals-Urine 3+ /hpf (None Seen)
[2023-07-07] MEDS: Ensure Plus High Protein 120 ML LIQUID PO (17:21)
[2023-07-07 21:21] VITALS: BP 144/88; PULSE 82; RESP 18; TEMP 36.9; O2SAT 99
[2023-07-07] MEDS: oxyCODONE 5 MG Tablet 10 MG PO (21:25)
[2023-07-07] MEDS: Polyethylene Glycol 3350 17 GM PACKET PO (21:25)
[2023-07-07] MEDS: Mirtazapine 15 MG Tablet PO (21:25)
[2023-07-07 22:00] VITALS: PULSE 85; RESP 16; O2SAT 96
--- NOTE | 2023-07-08 01:23 | NURSING ---
SCDs found removed on the floor. Pt stated he could not tolerate them so he removed them himself.
[2023-07-08] MEDS: Acetaminophen 500 MG Tablet 1000 MG PO ×3 (05:05→21:57)
[2023-07-08 07:39] VITALS: BP 141/81; PULSE 88; RESP 16; TEMP 37; O2SAT 96
--- NOTE | 2023-07-08 09:11 | PN_ITS ---
Subjective Subjective Patient seen during therapy. He is doing therapy well, he has no new problems, concerns, issues, complaints. Objective Data Objective Data Vital Signs: Vital Signs Temp Pulse Resp BP Pulse Ox O2 Del Method 98.6 F 88 16 141/81 H 96 Room Air 07/08/23 07:39 07/08/23 07:39 07/08/23 07:39 07/08/23 07:39 07/08/23 07:39 07/08/23 07:39 Oxygen Delivery Method Room Air Weight: 75.1 kg Body Mass Index (BMI) 23.1 Intake & Output: Intake and Output for Last 24 Hours 07/06/23 07/07/23 07/08/23 23:59 23:59 23:59 Intake Total 3776.67 / 3776.67 1000 / 1000 Output Total 3000 / 3000 550 / 550 Balance 776.67 / 776.67 450 / 450 Lab / Micro Data Attestation: I reviewed the patient's lab results. 07/06/23 04:40 07/06/23 04:40 Labs: Laboratory Results - last 24 hr 07/04/23 11:30: Other Crystals 3+ Micro: Microbiology 07/05/23 15:11 Stool Stool Occult Blood (WAYNE) - Final Occult Blood Positive Physical Exam Narrative Bilateral nephrostomy tubes. Const alert General Appearance: cooperative HEENT normocephalic Eyes PERRL and EOMs intact bilaterally Neck supple, no JVD and no carotid bruits Resp normal respiratory effort, normal air movement and clear to auscultation bilaterally Cardio regular rate and regular rhythm GI normal to inspection, nondistended, normoactive bowel sounds, non-tender and non-distended Extremity normal capillary refill General Extremity: Negative for edema Skin no rashes or lesions noted General Skin Exam: no breakdown Psych affect normal Appearance: appropriate Assessment & Plan Assessment/Plan (1) Debility: (2) S/P radical cystoprostatectomy: (3) Crystalluria: (4) Bladder spasm: (5) Appetite loss: (6) Nausea: (7) GERD (gastroesophageal reflux disease): (8) Hypokalemia: (9) Abdominal distention: PLAN: Plan 68 year old male with past medical history significant for metastatic prostate/bladder cancer, hospitalized for cystoprostatectomy, admitted to for 3 hours daily rehabilitation, strengthening, prior to discharge home. * Debility - PT/OT/ST. * Pain - Tylenol 1000mg q8, Oxycodone 10mg qhs, 5mg tid prn. * Bowel - Miralax 17gm bid, senna/colace 2 tablets bid, Dulcolax 10mg pr x 1 prn, MOM 30ml po x 1 prn. * Kidney stones - Allopurinol 200mg daily. * Nutrition - Ensure Plus 120ml tidcm, MVI 1 tablet daily. * Bladder spasm - Levsin 0.125mg q6h prn. * Appetite loss - Mirtazapine 15mg qhs. * Nausea - Zofran 4mg q8h prn. * GERD - Pantoprazole 20mg daily. * Hypokalemia - KCL 20meq daily. * Gas - Simethicone 80mg pchs. Capacity Capacity Assessment Tool Can the patient make a choice & communicate that choice?: Yes Can the patient understand benefits, risks and alternatives?: Yes Can the patient make a logical, rational choice?: Yes Is the choice the patient makes consistent w/ their values?: Yes Is there an impending, emergent risk to the patient?: No Does the patient have an Advance Directive?: No Is there a Surrogate Available?: No i.e. HCPOA: No i.e. close relative (spouse, child, parent, sibling)?: No
[2023-07-08] MEDS: Polyethylene Glycol 3350 17 GM PACKET PO ×2 (09:15→21:57)
[2023-07-08] MEDS: Pantoprazole Sodium 20 MG Tablet PO (09:15)
[2023-07-08] MEDS: Senna/Docusate Sodium 1 Tablet 2 TABLET PO ×2 (09:16→21:56)
[2023-07-08] MEDS: Multivitamins,Therapeutic Tablet 1 TABLET PO (09:16)
[2023-07-08] MEDS: Potassium Chloride Oral Tablet 20 MEQ PO (09:16)
[2023-07-08] MEDS: SimETHICONE 80 MG Chewable Tablet PO ×4 (09:16→21:32)
[2023-07-08] MEDS: Allopurinol 100 MG Tablet 200 MG PO (09:16)
[2023-07-08] MEDS: Mirtazapine 15 MG Tablet PO (21:32)
[2023-07-08] MEDS: oxyCODONE 5 MG Tablet 10 MG PO (21:57)
[2023-07-08 22:00] VITALS: BP 140/81; PULSE 84; RESP 16; TEMP 36.7; O2SAT 95; O2SAT 98
[2023-07-08] MEDS: 0.9% Saline Lock 10 ML Syringe IV (22:13)
[2023-07-09] MEDS: Acetaminophen 500 MG Tablet 1000 MG PO ×3 (05:51→20:21)
[2023-07-09 05:57] LABS: Hematocrit 26.4 % (40-54); Hemoglobin 7.9 g/dL (13.0-16.5)
[2023-07-09] MEDS: oxyCODONE 5 MG Tablet PO (06:21)
[2023-07-09 06:58] LABS: Anion Gap 5 (5-15); BUN 29 mg/dL (7-18); BUN/Creat Ratio 14.3 RATIO (10-20); Chloride 106 mmol/L (98-107); Creatinine, Serum 2.03 mg/dL (0.70-1.30); EST Glomerular Filtration Rate 35 mL/min (>60); Est Glom Filt Rate - Afr Amer 42 mL/min (>60); Estimated Creatinine Clearance 38.02 ml/min; Glucose 88 mg/dL (74-106); Potassium 4.2 mmol/L (3.5-5.1); Sodium Level 137 mmol/L (136-145)
[2023-07-09 08:07] VITALS: BP 134/83; PULSE 89; RESP 16; TEMP 36.7; O2SAT 98
[2023-07-09] MEDS: Senna/Docusate Sodium 1 Tablet 2 TABLET PO ×2 (08:42→20:20)
[2023-07-09] MEDS: Polyethylene Glycol 3350 17 GM PACKET PO ×2 (08:42→20:20)
[2023-07-09] MEDS: Allopurinol 100 MG Tablet 200 MG PO (08:43)
[2023-07-09] MEDS: SimETHICONE 80 MG Chewable Tablet PO ×4 (08:43→20:20)
[2023-07-09] MEDS: Potassium Chloride Oral Tablet 20 MEQ PO (08:43)
[2023-07-09] MEDS: Pantoprazole Sodium 20 MG Tablet PO (08:43)
[2023-07-09] MEDS: Multivitamins,Therapeutic Tablet 1 TABLET PO (08:43)
[2023-07-09] MEDS: Menthol/Lanolin/Calamine/Znox 113 GM Tube 1 APPLIC TOPICAL ×2 (08:51→20:24)
--- NOTE | 2023-07-09 12:17 | CASEMGMT ---
Social Work IONA phoned brother to obtain address since pt is discharging to his home. Updated in [facility]. IONA spoke with pt about DC plans and inquired about preference for HHC. Pt has no preference and agreeable to using [facility]. No DME needs. Pt's drains are chronic. IONA phoned referral to [facility] PT/OT/SW. Plan: DC to [facility] 07/13, [facility] PT/OT/SCOTTIE CarranzaW
--- NOTE | 2023-07-09 19:38 | PN_ITS ---
Subjective Subjective Patient seen, examined, he finished breakfast. He has no new complaints. Objective Data Objective Data Vital Signs: Vital Signs Temp Pulse Resp BP Pulse Ox O2 Del Method 98.1 F 89 16 134/83 H 98 Room Air 07/09/23 08:07 07/09/23 08:07 07/09/23 08:07 07/09/23 08:07 07/09/23 08:07 07/09/23 08:07 Oxygen Delivery Method Room Air Weight: 75.1 kg Body Mass Index (BMI) 23.1 Intake & Output: Intake and Output for Last 24 Hours 07/07/23 07/08/23 07/09/23 23:59 23:59 23:59 Intake Total 3776.67 / 3776.67 2040 / 2260 2070 / 2070 Output Total 3000 / 3000 2470 / 2470 1825 / 1825 Balance 776.67 / 776.67 -430 / -210 245 / 245 Lab / Micro Data Attestation: I reviewed the patient's lab results. 07/09/23 05:10 07/09/23 05:10 Labs: Laboratory Results - last 24 hr 07/09/23 05:10: Hgb 7.9 L, Hct 26.4 L, Sodium 137, Potassium 4.2, Chloride 106, Carbon Dioxide 26.0, Anion Gap 5, BUN 29 H, Creatinine 2.03 H, Estim Creat Clear Calc 38.02, Est GFR (MDRD) Af Amer 42 L, Est GFR (MDRD) Non-Af 35 L, BUN/Creatinine Ratio 14.3, Glucose 88, Calcium 9.0 Micro: Microbiology 07/05/23 15:11 Stool Stool Occult Blood (WAYNE) - Final Occult Blood Positive Physical Exam Narrative Bilateral nephrostomy tubes. Const alert General Appearance: cooperative HEENT normocephalic Eyes PERRL and EOMs intact bilaterally Neck supple, no JVD and no carotid bruits Resp normal respiratory effort, normal air movement and clear to auscultation bilaterally Cardio regular rate and regular rhythm GI normal to inspection, nondistended, normoactive bowel sounds, non-tender and non-distended Extremity normal capillary refill General Extremity: Negative for edema Skin no rashes or lesions noted General Skin Exam: no breakdown Psych affect normal Appearance: appropriate Assessment & Plan Assessment/Plan (1) Debility: (2) S/P radical cystoprostatectomy: (3) Crystalluria: (4) Bladder spasm: (5) Appetite loss: (6) Nausea: (7) GERD (gastroesophageal reflux disease): (8) Hypokalemia: (9) Abdominal distention: PLAN: Plan 68 year old male with past medical history significant for metastatic prostate/bladder cancer, hospitalized for cystoprostatectomy, admitted to for 3 hours daily rehabilitation, strengthening, prior to discharge home. * Debility - PT/OT/ST. * Pain - Tylenol 1000mg q8, Oxycodone 10mg qhs, 5mg tid prn. * Bowel - Miralax 17gm bid, senna/colace 2 tablets bid, Dulcolax 10mg pr x 1 prn, MOM 30ml po x 1 prn. * Kidney stones - Allopurinol 200mg daily. * Nutrition - Ensure Plus 120ml tidcm, MVI 1 tablet daily. * Bladder spasm - Levsin 0.125mg q6h prn. * Appetite loss - Mirtazapine 15mg qhs. * Nausea - Zofran 4mg q8h prn. * GERD - Pantoprazole 20mg daily. * Hypokalemia - KCL 20meq daily. * Gas - Simethicone 80mg pchs. Capacity Capacity Assessment Tool Can the patient make a choice & communicate that choice?: Yes Can the patient understand benefits, risks and alternatives?: Yes Can the patient make a logical, rational choice?: Yes Is the choice the patient makes consistent w/ their values?: Yes Is there an impending, emergent risk to the patient?: No Does the patient have an Advance Directive?: No Is there a Surrogate Available?: Yes i.e. HCPOA: Yes i.e. close relative (spouse, child, parent, sibling)?: Yes
[2023-07-09] MEDS: Mirtazapine 15 MG Tablet PO (20:20)
[2023-07-09] MEDS: oxyCODONE 5 MG Tablet 10 MG PO (20:21)
[2023-07-09 20:26] VITALS: BP 117/76; PULSE 90; RESP 18; TEMP 37.1; O2SAT 99
[2023-07-10] MEDS: Acetaminophen 500 MG Tablet 1000 MG PO ×3 (05:29→20:46)
[2023-07-10 06:00] LABS: Absolute Lymphocyte Count 1.27 X10^3/uL (0.83-4.51); Absolute Neutrophil Count 8.6 X10^3/uL (2.0-7.7); Basophil# 0.06 X10^3/uL; Basophil% 0.6 % (0-1); Eosinophil# 0.31 X10^3/uL; Eosinophils% 2.9 % (0-5); Hematocrit 24.9 % (40-54); Hemoglobin 7.6 g/dL (13.0-16.5); Lymphocyte # 1.27 X10^3/ul (0.83-4.51); Lymphocyte % 11.7 % (19-41); Mean Corp Hgb Conc 30.5 g/dL (32-36); Mean Corpuscular Hgb 27.6 pg (27.0-32.0); Mean Corpuscular Volume 90.5 fL (80-94); Mean Platelet Vol. 9.3 fl (6.2-12.0); Monocyte# 0.56 X10^3/uL; Monocyte% 5.2 % (0-10); NRBC Flagged by Analyzer 0 % (0-5); Neutrophil # 8.55 X10^3/uL (2.7-7.7); Neutrophil % 78.6 % (47-70); Platelet Count 605 K/mm3 (150-450); RBC Distribution Width CV 15.9 % (11.6-14.6); RBC Distribution Width SD 52.1 fl (35.1-43.9); Red Blood Count 2.75 M/mm3 (4.6-6.2); White Blood Count 10.9 K/mm3 (4.4-11.0)
[2023-07-10 06:30] LABS: Anion Gap 7 (5-15); BUN 29 mg/dL (7-18); BUN/Creat Ratio 16.2 RATIO (10-20); Calcium,Total 9.2 mg/dL (8.5-10.1); Chloride 103 mmol/L (98-107); Creatinine, Serum 1.79 mg/dL (0.70-1.30); EST Glomerular Filtration Rate 41 mL/min (>60); Est Glom Filt Rate - Afr Amer 49 mL/min (>60); Estimated Creatinine Clearance 43.12 ml/min; Glucose 96 mg/dL (74-106); Potassium 4.1 mmol/L (3.5-5.1); Sodium Level 135 mmol/L (136-145)
[2023-07-10] MEDS: Polyethylene Glycol 3350 17 GM PACKET PO (09:21)
[2023-07-10] MEDS: Senna/Docusate Sodium 1 Tablet 2 TABLET PO ×2 (09:22→20:46)
[2023-07-10] MEDS: SimETHICONE 80 MG Chewable Tablet PO ×4 (09:22→20:46)
[2023-07-10] MEDS: Multivitamins,Therapeutic Tablet 1 TABLET PO (09:22)
[2023-07-10] MEDS: Allopurinol 100 MG Tablet 200 MG PO (09:22)
[2023-07-10] MEDS: Pantoprazole Sodium 20 MG Tablet PO (09:22)
[2023-07-10] MEDS: Potassium Chloride Oral Tablet 20 MEQ PO (09:22)
[2023-07-10] MEDS: Magnesium Hydroxide 30 ML UDC PO (09:24)
[2023-07-10] MEDS: Menthol/Lanolin/Calamine/Znox 113 GM Tube 1 APPLIC TOPICAL ×2 (09:25→20:47)
[2023-07-10 10:00] VITALS: BP 141/79; PULSE 93; RESP 16; TEMP 37.2; O2SAT 96
[2023-07-10 20:18] VITALS: BP 139/89; PULSE 92; RESP 16; TEMP 37.5; O2SAT 98
[2023-07-10] MEDS: oxyCODONE 5 MG Tablet 10 MG PO (20:45)
[2023-07-10] MEDS: Mirtazapine 15 MG Tablet PO (20:47)
[2023-07-11] MEDS: Acetaminophen 500 MG Tablet 1000 MG PO ×3 (05:52→21:25)
[2023-07-11] MEDS: 0.9% Saline Lock 10 ML Syringe IV (05:53)
[2023-07-11 10:00] VITALS: BP 129/84; PULSE 86; RESP 16; TEMP 36.8; O2SAT 97
[2023-07-11] MEDS: Potassium Chloride Oral Tablet 20 MEQ PO (10:11)
[2023-07-11] MEDS: Multivitamins,Therapeutic Tablet 1 TABLET PO (10:11)
[2023-07-11] MEDS: Senna/Docusate Sodium 1 Tablet 2 TABLET PO ×2 (10:11→21:23)
[2023-07-11] MEDS: Polyethylene Glycol 3350 17 GM PACKET PO (10:11)
[2023-07-11] MEDS: SimETHICONE 80 MG Chewable Tablet PO ×4 (10:12→21:23)
[2023-07-11] MEDS: Allopurinol 100 MG Tablet 200 MG PO (10:12)
[2023-07-11] MEDS: Pantoprazole Sodium 20 MG Tablet PO (10:12)
--- NOTE | 2023-07-11 14:00 | DS.PCM_ITS ---
Providers Date of Admission: 07/02/23 Primary Care Physician: BASIA De La Paz Reason For Visit: DEBILITY Diagnosis Discharge Diagnosis (1) Debility: Status: Acute Code(s): R53.81 - Other malaise (2) S/P radical cystoprostatectomy: Status: Acute Code(s): Z90.79 - Acquired absence of other genital organ(s); Z90.6 - Acquired absence of other parts of urinary tract (3) Crystalluria: Status: Acute Code(s): R82.998 - Other abnormal findings in urine (4) Bladder spasm: Status: Acute Code(s): N32.89 - Other specified disorders of bladder (5) Appetite loss: Status: Acute Code(s): R63.0 - Anorexia (6) Nausea: Status: Acute Code(s): R11.0 - Nausea (7) GERD (gastroesophageal reflux disease): Status: Acute Code(s): K21.9 - Gastro-esophageal reflux disease without esophagitis (8) Hypokalemia: Status: Acute Code(s): E87.6 - Hypokalemia (9) Abdominal distention: Status: Acute Code(s): R14.0 - Abdominal distension (gaseous) Plan 68 year old male with past medical history significant for metastatic prostate/bladder cancer, hospitalized for cystoprostatectomy, admitted to for 3 hours daily rehabilitation, strengthening, prior to discharge home. * Debility - PT/OT/ST. * Pain - Tylenol 1000mg q8, Oxycodone 10mg qhs, 5mg tid prn. * Bowel - Miralax 17gm bid, senna/colace 2 tablets bid, Dulcolax 10mg pr x 1 prn, MOM 30ml po x 1 prn. * Kidney stones - Allopurinol 200mg daily. * Nutrition - Ensure Plus 120ml tidcm, MVI 1 tablet daily. * Bladder spasm - Levsin 0.125mg q6h prn. * Appetite loss - Mirtazapine 15mg qhs. * Nausea - Zofran 4mg q8h prn. * GERD - Pantoprazole 20mg daily. * Hypokalemia - KCL 20meq daily. * Gas - Simethicone 80mg pchs. Medications at Discharge Home Medications acetaminophen 500 mg tablet 1,000 mg (2 x 500 mg) PO Q8 #0 tabs 07/11/23 allopurinol 100 mg tablet 200 mg (2 x 100 mg) PO DAILYCM 30 days #60 tabs 07/11/23 mirtazapine 15 mg tablet (Remeron) 15 mg PO QHS Depression 30 days #30 tabs 07/11/23 oxycodone 5 mg tablet 5 mg PO 0700,1200,1700 PRN Pain Score 1-10 7 days #21 tabs 07/11/23 oxycodone 5 mg tablet 10 mg (2 x 5 mg) PO QHS 7 days #14 tabs 07/11/23 pantoprazole 20 mg tablet,delayed release 20 mg PO DAILY 30 days #30 tabs 07/11/23 polyethylene glycol 3350 17 gram oral powder packet 17 g PO BID 30 days #60 ea 07/11/23 potassium chloride 20 mEq tablet,extended release(part/cryst) (Klor-Con M) 20 meq PO DAILYCM 30 days #30 tabs 07/11/23 sennosides 8.6 mg-docusate sodium 50 mg tablet (Stool Softener-Stimulant Laxative) 2 tab PO BID 30 days #120 tabs 07/11/23 simethicone 80 mg chewable tablet 80 mg PO PCHS 30 days #120 tabs 07/11/23 Hospital Course Operations - (Cystoprostatectomy.) Procedures None Summary of Care Provided Minutes Spent on Discharge: 35 Hospital Course: 68 year old male with past medical history significant for metastatic prostate/bladder cancer, hospitalized for cystoprostatectomy, admitted to for 3 hours daily rehabilitation, strengthening, prior to discharge home. Discharge to brother's house 07/13/2023, [facility] PT/OT/SW, no DME. Physical Exam Const alert General Appearance: cooperative HEENT normocephalic Eyes PERRL and EOMs intact bilaterally Neck supple, no JVD and no carotid bruits Resp normal respiratory effort, normal air movement and clear to auscultation bilaterally Cardio regular rate and regular rhythm GI normal to inspection, nondistended, normoactive bowel sounds, non-tender and non-distended Narrative: Bilateral nephrostomy tubes. Extremity normal capillary refill General Extremity: Negative for edema Skin no rashes or lesions noted General Skin Exam: no breakdown Psych affect normal Appearance: appropriate Weight / BMI Weight Weight: 75.1 kg Body Mass Index (BMI) 23.1 ABG / Lab / Microbiology Data 07/10/23 05:14 07/10/23 05:14 Microbiology: Microbiology 07/05/23 15:11 Stool Stool Occult Blood (WAYNE) - Final Occult Blood Positive Indicators for Scoring Admitted with or Primary Diagnosis of CVA/Stroke: No Hx of CVA/Stroke: No D/C Instructions Discharge Diet: No restrictions Discharge Activity: Return to Normal Activity, May Shower and Use Walker Weight Bearing Status: Weight bearing as tolerated Call your doctor if you observe: Fever of 101 or Higher, Inability to urinate, Inability to have a bowel movement, Shortness of breath, Dizziness, Fainting spells, Swelling in the ankles, Chest pain and Uncontrolled pain Additional Instructions: Discharge to [facility] 07/13/2023, [facility] PT/OT/SW, no DME. Meaningful Use Info Meaningful Use Diagnoses (Choose all that apply): None applicable Discharge Plan Admission Admit Date/Time: 07/02/23 16:32 Primary Reason for Your Visit: Debility. Attending Provider: Shalini Cortez Primary Care Provider: Cyrus Urena Instructions Additional Instructions / Restrictions: Discharge to [facility] 07/13/2023, [facility] PT/OT/SW, no DME. Discharge Orders/Prescriptions Prescriptions: New polyethylene glycol 3350 17 gram Powder In Packet 17 g PO BID 30 Days Qty: 60 0RF sennosides-docusate sodium [Stool Softener-Stimulant Laxat] 8.6-50 mg Tablet 2 tab PO BID 30 Days Qty: 120 0RF allopurinol 100 mg Tablet 200 mg PO DAILYCM 30 Days Qty: 60 0RF acetaminophen 500 mg Tablet 1,000 mg PO Q8 Qty: 0 0RF pantoprazole 20 mg Tablet,Delayed Release (Dr/Ec) 20 mg PO DAILY 30 Days Qty: 30 0RF potassium chloride [Klor-Con M20] 20 mEq Tablet,Er Particles/Crystals 20 meq PO DAILYCM 30 Days Qty: 30 0RF simethicone 80 mg Tablet,Chewable 80 mg PO PCHS 30 Days Qty: 120 0RF oxycodone 5 mg Tablet 10 mg PO QHS 7 Days Qty: 14 0RF oxycodone 5 mg Tablet 5 mg PO 0700,1200,1700 PRN (Reason: Pain Score 1-10) 7 Days Qty: 21 0RF Continued mirtazapine [Remeron] 15 mg tablet 15 mg PO QHS 30 Days Qty: 30 0RF Discontinued ferrous sulfate 324 mg (65 mg iron) tablet,delayed release (DR/EC) 324 mg PO DAILY hyoscyamine sulfate [Levsin/SL] 0.125 mg tablet, sublingual 0.125 mg PO Q6H PRN (Reason: bladder spasms) multivitamin Tablet 1 tab PO DAILY Referrals / Follow Up: Cyrus Urena [Other] - 07/16/23 9:30 am Chaz Baer DO [Med Staff - Active Staff] - 07/18/23 3:30 pm Care Physician,No Primary [Non-Staff] - Disposition Disposition (needs filled in before D/C Order can be placed): Home Health Service
[2023-07-11 19:26] VITALS: BP 109/65; PULSE 86; RESP 17; TEMP 37; O2SAT 97
[2023-07-11] MEDS: oxyCODONE 5 MG Tablet 10 MG PO (21:23)
[2023-07-11] MEDS: Mirtazapine 15 MG Tablet PO (21:24)
[2023-07-12] MEDS: Acetaminophen 500 MG Tablet 1000 MG PO ×3 (06:35→21:33)
[2023-07-12 07:40] VITALS: BP 130/77; PULSE 92; RESP 16; TEMP 37.1; O2SAT 97
[2023-07-12] MEDS: Polyethylene Glycol 3350 17 GM PACKET PO (08:28)
[2023-07-12] MEDS: Potassium Chloride Oral Tablet 20 MEQ PO (08:29)
[2023-07-12] MEDS: Pantoprazole Sodium 20 MG Tablet PO (08:29)
[2023-07-12] MEDS: SimETHICONE 80 MG Chewable Tablet PO ×4 (08:29→21:33)
[2023-07-12] MEDS: Allopurinol 100 MG Tablet 200 MG PO (08:30)
[2023-07-12] MEDS: Multivitamins,Therapeutic Tablet 1 TABLET PO (08:30)
[2023-07-12] MEDS: Senna/Docusate Sodium 1 Tablet 2 TABLET PO ×2 (08:31→21:33)
[2023-07-12 14:07] VITALS: BP 130/72; PULSE 80; RESP 16; TEMP 36.7; O2SAT 96
[2023-07-12 21:00] VITALS: BP 129/62; PULSE 84; RESP 18; TEMP 37; O2SAT 98
[2023-07-12] MEDS: oxyCODONE 5 MG Tablet 10 MG PO (21:33)
[2023-07-12] MEDS: Mirtazapine 15 MG Tablet PO (21:33)
[2023-07-13] MEDS: Acetaminophen 500 MG Tablet 1000 MG PO (06:12)
[2023-07-13 07:57] VITALS: BP 129/75; PULSE 87; RESP 16; TEMP 37.2; O2SAT 97
[2023-07-13] MEDS: Potassium Chloride Oral Tablet 20 MEQ PO (08:44)
[2023-07-13] MEDS: Pantoprazole Sodium 20 MG Tablet PO (08:45)
[2023-07-13] MEDS: Allopurinol 100 MG Tablet 200 MG PO (08:45)
[2023-07-13] MEDS: SimETHICONE 80 MG Chewable Tablet PO (08:46)
[2023-07-13] MEDS: Multivitamins,Therapeutic Tablet 1 TABLET PO (08:46)
[2023-07-13] MEDS: Senna/Docusate Sodium 1 Tablet 2 TABLET PO (08:46)
== END 2023-07-13 10:57 | disposition home health service (06) | DRG 687 ==
PROVIDERS: Family Medicine Geriatric Medicine; Admitting Provider Internal Medicine; PCP Nurse Practitioner Family; Referring Provider Internal Medicine; Visit Provider Internal Medicine
DX: C67.8 Malignant neoplasm of overlapping sites of bladder (principal); E44.0 Moderate protein-calorie malnutrition; D62 Acute posthemorrhagic anemia; E11.22 Type 2 diabetes mellitus with diabetic chronic kidney disease; N18.31 Chronic kidney disease, stage 3a; F32.A Depression, unspecified; E83.52 Hypercalcemia; F17.210 Nicotine dependence, cigarettes, uncomplicated; K21.9 Gastro-esophageal reflux disease without esophagitis; E87.6 Hypokalemia; L13.9 Bullous disorder, unspecified; N32.89 Other specified disorders of bladder; Z23 Encounter for immunization; Z79.899 Other long term (current) drug therapy
CPT/HCPCS: 36415; 74018; 80048; 80053; 81001; 82040; 82274; 82728; 83540; 83550; 83735; 83970; 84100; 84550; 85014; 85018; 85025; 85045; 86850; 86900; 86901; 92523; 94668; 97110; 97116; 97124; 97129; 97130; 97162; 97166; 97530; 97535; 97802; 99406; J7030; 90662; A4216; J2916

== ENCOUNTER 2023-08-19 10:14 | Inpatient (IN) | payer MEDICARE, SELFPAY ==
[2023-08-19] VITALS (9 sets, daily range): BP systolic 118–152; BP diastolic 72–89; PULSE 85–104; RESP 13–30; TEMP 36.1–36.5; O2SAT 94–99; BMI 19.8
--- NOTE | 2023-08-19 10:25 | EKG12_ITS ---
Test Reason : WEAKNESS Blood Pressure : / mmHG Vent. Rate : 094 BPM Atrial Rate : 094 BPM P-R Int : 142 ms QRS Dur : 090 ms QT Int : 360 ms P-R-T Axes : 076 067 093 degrees QTc Int : 450 ms Normal sinus rhythm Nonspecific T wave abnormality Abnormal ECG Confirmed by LARA MOYA, CHET ([id number]), supervising editor trailer MARGARITA LOPES ([id number]) on 08/21/2023 10:30:52 AM Referred By: Confirmed By:CHET BERMUDEZ MD
--- NOTE | 2023-08-19 10:27 | EX.ED.DYSGE1 ---
HPI History of Present Illness Chief Complaint: Weakness Narrative Narrative: 68-year-old male past medical history of bladder carcinoma with bilateral nephrostomy tube placement approximately 2 months ago presents from his brother's house via EMS with generalized weakness, right knee pain, and need for placement. His brother with whom he is staying reported that he can no longer take care of of the patient. Patient states that he is currently staying with his relative because there is no heat in his house. He has been there for the last few weeks. Was reported that the patient has been generally weak and unable to care for himself over the last 2 to 3 weeks. Patient denies any fevers or chills, no nausea or vomiting. He states he was taking a shower and he is unsure if one of his nephrostomy tubes became displaced. However, he denies any back pain, or other symptoms. [facility] Medical History Acute on chronic blood loss anemia Bladder cancer Chronic renal failure, stage 3a Loose, teeth Malnutrition Tobacco dependence Home Medications allopurinol 100 mg tablet 200 mg (2 x 100 mg) PO DAILYCM GOUT 30 days #60 tabs 07/11/23 [Rx Last Taken 08/19/23] mirtazapine 15 mg tablet (Remeron) 15 mg PO QHS DEPRESSION 30 days #30 tabs 07/11/23 [Rx Last Taken 08/18/23] pantoprazole 20 mg tablet,delayed release 20 mg PO DAILY ACID REFLUX 30 days #30 tabs 07/11/23 [Rx Last Taken 08/19/23] potassium chloride 20 mEq tablet,extended release(part/cryst) (Klor-Con M) 20 meq PO DAILYCM SUPPLEMENT 30 days #30 tabs 07/11/23 [Rx Last Taken 08/19/23] sennosides 8.6 mg-docusate sodium 50 mg tablet (Stool Softener-Stimulant Laxative) 2 tab PO BID STOOL SOFTENER 30 days #120 tabs 07/11/23 [Rx Last Taken 08/19/23] simethicone 80 mg chewable tablet 80 mg PO PCHS GAS RELIEF 30 days #120 tabs 07/11/23 [Rx Last Taken 08/19/23] acetaminophen 500 mg tablet 1,000 mg PO Q8H PRN PAIN 08/19/23 [History Last Taken Unknown] polyethylene glycol 3350 17 gram oral powder packet 17 g PO BID PRN CONSTIPATION 08/19/23 [History Last Taken Unknown] Allergy/AdvReac Type Severity Reaction Status Date / Time No Known Allergies Allergy Verified 08/19/23 10:15 Surgical History H/O transurethral resection of bladder tumor (TURBT) History of tonsillectomy S/P radical cystoprostatectomy Social History household members: none housing: house current occupational status: retired Smoking Status: Current every day smoker tobacco type: cigarettes Tobacco: How many years used: 45 how long ago did patient quit smoking: He has cut back significantly recently and tells me that he smokes 1-2/week alcohol intake: never substance use type: does not use ROS ROS ED ROS Narrative Constitutional: No fever, no chills. Neurolysed weakness. HEENT: No sore throat. No neck pain. No loss of vision. No rhinorrhea. Cardiovascular: No chest pain. No palpitations. No pedal edema. Respiratory: No cough, no shortness of breath. Abdominal: No abdominal pain. No nausea. No vomiting. Genitourinary: No dysuria. No hematuria. Musculoskeletal: No myalgias. Chronic right knee pain, right hip pain. Neurologic: No headaches. No dizziness. No lightheadedness. Skin: No rash. No change in color. Psychiatric: No depression. No anxiety. EXAM Physical Exam Narrative Exam Narrative: Afebrile. Vital signs noted. Mildly cachectic. HEENT: Normocephalic. Atraumatic. PERRL, EOMI. Neck soft and supple. No point tenderness or step off. Cardiovascular: Regular rate and rhythm. No murmurs, rubs, or gallops appreciated. Respiratory: No tachypnea. Lungs clear to auscultation bilaterally. Gastrointestinal: Abdomen soft, nontender, with normoactive bowel sounds. No rebound or guarding. Bilateral nephrostomy tubes noted, draining darker yellow urine, no evidence of hematuria. No evidence of displacement currently. Neurological: Awake. Alert. Nonfocal, nonlateralizing. Skin: No rash. Normal color. No pallor. Musculoskeletal: No pedal edema. Full range of motion extremities. Extension of right knee and hip in place. Neurovascular intact distally. Const Vital Signs: 08/19/23 10:19 08/19/23 10:21 08/19/23 12:22 Temperature 96.9 F L Temperature Source Temporal Pulse Rate 100 85 Respiratory Rate 14 22 H Respiratory Effort Normal Non-Labored Respiratory Pattern Normal Blood Pressure 122/80 H 141/79 H Blood Pressure Mean 94 99 Pulse Ox 95 94 Oxygen Delivery Method Room Air 08/19/23 14:08 Temperature 97.6 F L Temperature Source Oral Pulse Rate 86 Respiratory Rate 22 H Respiratory Effort Respiratory Pattern Blood Pressure 142/82 H Blood Pressure Mean 102 Pulse Ox 99 Oxygen Delivery Method Room Air MDM MDM MDM Narrative Medical decision making narrative: As the patient will require halfway facility placement, medical screening labs and EKG will be obtained along with chest x-ray. In the differential diagnosis would be generalized debility, urinary tract infection, but he does have bilateral nephrostomy tubes, pneumonia, and dehydration. Patient will also be discussed with social work as he will require placement. EKG was obtained and interpreted by myself independently as normal sinus rhythm at 94 bpm without ectopy or acute ST changes. No STEMI. No significant change from EKG dated May 16, 2023. I reviewed his laboratory work and he has leukocytosis of 34.5 with hemoglobin stable at 9.2, improved over previous. Platelet count is elevated 682 which I think may be an acute phase reactant. Sodium is low at 134 with potassium 3.4, chloride low at 97, BUN of 50 with creatinine of 2.02. He does have chronic kidney disease. Glucose is appropriately elevated at 143 with a normal anion gap of 8. AST normal at 19 with ALT low at 9 with an alk phos of 186 which I think is nonspecific. High-sensitivity troponin is 21. Urinalysis from his nephrostomy tube shows 25-50 WBCs and 25-50 RBCs. There is 1+ bacteria. He was started on cefepime for UTI as his lactic acid is also elevated at 2.5. This may be secondary to dehydration as well. He was bolused IV fluids. I did obtain a CT of the abdomen pelvis without contrast, and was initially looking for any nephrostomy tube displacement. I reviewed the CT report which comments on soft tissue masses in the pelvis and possibility of emphysematous cystitis. Additionally, it was mentioned that there is bony destruction of the puboc rami on the right consistent with metastasis. However, patient relates history that he had his bladder removed. I reviewed his records and he had a bladder resection transurethrally by Dr. Mendoza in June of this year. Patient states he had a surgery at [facility] where they removed his bladder. Concern now is for intra-abdominal abscess given his leukocytosis. I discussed antibiotics with the pharmacist as he has already been given cefepime to cover anaerobes I suggested Flagyl instead of Zosyn. He was administered Flagyl 500 mg intravenously x 1. I had multiple discussions with consultants. I discussed patient with the hospitalist, who suggested that I speak with the urologist. I also discussed patient with Dr. Prieto who recommends transfer back to [facility]. I informed Dr. Cullen the hospitalist of the need for transfer. I discussed patient with the [facility] transfer line and his transfer is pending discussion with urology. Additionally, I spoke with his brother Mathew, who states that the living condition at the patient's house is unacceptable, and he is no longer able to take care of him, feeling that he needs halfway facility placement. Patient is currently not undergoing chemotherapy. His brother states that in discussion with the surgeon they were unsure if they had removed all of the cancerous tumor. This point in time, patient will be signed out to the oncoming physician, Dr. Prashanth Salcedo presents for continued transfer of this patient with weakness, debility, possible bladder area abscess/intra-abdominal abscess and soft tissue masses with bony destruction with history of bladder carcinoma. He is in stable condition. History & Record Review Discussion w/independent historian: Patient and Family (Brother Mathew via telephone) Additional record(s) reviewed:: Prior outpatient record, Prior ED visit and Prior labs Lab Data Attestation: I reviewed the patient's lab results. Labs: Laboratory Results - last 24 hr 08/19/23 08/19/23 10:53 12:15 WBC 34.5 H* RBC 3.38 L Hgb 9.2 L Hct 30.0 L MCV 88.8 MCH 27.2 MCHC 30.7 L RDW Std Deviation 56.2 H RDW Coeff of Kathi 17.3 H Plt Count 682 H MPV 9.2 Immature Gran % (Auto) 0.700 Neut % (Auto) 94.4 H Lymph % (Auto) 2.3 L [place] % (Auto) 2.5 Eos % (Auto) 0.0 Baso % (Auto) 0.1 Absolute Neuts (auto) 32.6 H Absolute Lymphs (auto) 0.81 L Nucleated RBC % 0 Differential Comment SCANNED Diff Path Review May foll Sodium 134 L Potassium 3.4 L Chloride 97 L Carbon Dioxide 29.0 Anion Gap 8 BUN 50 H Creatinine 2.02 H Estim Creat Clear Calc 32.82 Est GFR (MDRD) Af Amer 43 L Est GFR (MDRD) Non-Af 35 L BUN/Creatinine Ratio 24.8 H Glucose 143 H Lactic Acid 2.5 H* Calcium 14.2 H* Total Bilirubin 0.70 AST 19 ALT 9 L Alkaline Phosphatase 186 H Troponin I High Sens 21 Total Protein 7.1 Albumin 2.1 L Globulin 5.0 H Albumin/Globulin Ratio 0.4 L Urine Color Yellow Urine Clarity Sl. Cloudy Urine pH 6.0 Ur Specific [place] 1.020 Urine Protein 30 H Urine Glucose (UA) Normal Urine Ketones Negative Urine Occult Blood 250 H Urine Nitrite Negative Urine Bilirubin Negative Urine Urobilinogen Normal Ur Leukocyte Esterase 500 H Urine RBC 25-50 SEEN Urine WBC 25-50 SEEN Ur Squamous Epith Cells 0 SEEN Urine Bacteria 1+ Urine Mucus 0 SEEN Radiography Diagnostic Testing: Clinical Impression(s) from Imaging Studies Abdomen/Pelvis CT 08/19/23 11:24 IMPRESSION: Extensive soft tissue masses in the lower abdomen and pelvis with the mass in the central portion of the pelvis containing air. This may represent emphysematous cystitis. Bony destruction of the right superior and inferior pubic rami. Bilateral nephrostomy tubes are seen. Electronically Signed: Glenn Nolan MD at 12:24 EST , Chest X-Ray 08/19/23 11:25 IMPRESSION: Normal x-ray examination of the chest. Electronically Signed: Glenn Nolan MD at 12:14 EST , Discharge Plan Triage Chief Complaint: Weakness ED Provider: Yan Hernandez Dx/Rx/DC Orders Clinical Impression: Abscess of bladder, Mass of soft tissue of pelvis, Leukocytosis, Weakness, Debility, Hypercalcemia Prescriptions: No Action sennosides-docusate sodium [Stool Softener-Stimulant Laxat] 8.6-50 mg Tablet 2 tab PO BID 30 Days Qty: 120 0RF allopurinol 100 mg Tablet 200 mg PO DAILYCM 30 Days Qty: 60 0RF pantoprazole 20 mg Tablet,Delayed Release (Dr/Ec) 20 mg PO DAILY 30 Days Qty: 30 0RF potassium chloride [Klor-Con M20] 20 mEq Tablet,Er Particles/Crystals 20 meq PO DAILYCM 30 Days Qty: 30 0RF simethicone 80 mg Tablet,Chewable 80 mg PO PCHS 30 Days Qty: 120 0RF mirtazapine [Remeron] 15 mg tablet 15 mg PO QHS 30 Days Qty: 30 0RF acetaminophen 500 mg Tablet 1,000 mg PO Q8H PRN (Reason: PAIN ) polyethylene glycol 3350 17 gram Powder In Packet 17 g PO BID PRN (Reason: CONSTIPATION ) Primary Care Provider: Cyrus Urena Referrals: Cyrus Urena, [employer] [Primary Care Provider] - Disposition Disposition: Acute Care Hospital
--- NOTE | 2023-08-19 10:30 | CM.ED ---
Social Work SW received call from [facility] SW. Pt's primary residence is uninhabitable and he has been staying with his brother. Pt reportedly in bed most of the time and not caring for self. Pt was able to go to a SNF previously on a 3-midnight stay but declined due to not wanting a roommate. Pt has had increasing weakness and family is unable to provide the care pt needs. SW to follow for needs. Maria M An ONCOLOGY REGISTRAR, [employer]HER
[2023-08-19 11:04] LABS: Absolute Lymphocyte Count 0.81 X10^3/uL (0.83-4.51); Absolute Neutrophil Count 32.6 X10^3/uL (2.0-7.7); Basophil# 0.05 X10^3/uL; Basophil% 0.1 % (0-1); Eosinophil# 0.01 X10^3/uL; Hemoglobin 9.2 g/dL (13.0-16.5); Lymphocyte # 0.81 X10^3/ul (0.83-4.51); Lymphocyte % 2.3 % (19-41); Mean Corp Hgb Conc 30.7 g/dL (32-36); Mean Corpuscular Hgb 27.2 pg (27.0-32.0); Mean Corpuscular Volume 88.8 fL (80-94); Mean Platelet Vol. 9.2 fl (6.2-12.0); Monocyte# 0.86 X10^3/uL; Monocyte% 2.5 % (0-10); NRBC Flagged by Analyzer 0 % (0-5); Neutrophil # 32.56 X10^3/uL (2.7-7.7); Neutrophil % 94.4 % (47-70); POSITIVE COUNT YES; POSITIVE DIFFERENTIAL YES; Platelet Count 682 K/mm3 (150-450); RBC Distribution Width CV 17.3 % (11.6-14.6); RBC Distribution Width SD 56.2 fl (35.1-43.9); Red Blood Count 3.38 M/mm3 (4.6-6.2)
[2023-08-19 11:07] LABS: White Blood Count 34.5 K/mm3 (4.4-11.0)
[2023-08-19 11:08] LABS: Differential Indicated SCAN CRITERIA MET
[2023-08-19] MEDS: 0.9% Normal Saline (1000mL) 1,000 ML 1000 ML IV (11:16)
--- NOTE | 2023-08-19 11:24 | CT_ITS ---
STUDY: CT ABDOMEN AND PELVIS WITHOUT CONTRAST REASON FOR EXAM: Male, 68 years old. Bilateral nephrostomy tubes. RADIATION DOSAGE (If Supplied By Facility): CTDIvol = ( 8.43 ) mGy, DLP = ( 467.80 ) mGycm TECHNIQUE: Transaxial images were obtained from the dome of the diaphragm to the symphysis pubis without oral contrast, and without intravenous contrast. Sagittal and coronal images were reconstructed. Individualized dose optimization techniques were used for this CT. COMPARISON: Comparison is made with prior study dated May 16, 2023. FINDINGS: There is a 7.1 mm noncalcified nodule in the right lower lobe. Calcified granuloma is seen at the left lung base. Coronary artery calcification. Minimal anterior pericardial thickening. Normal liver. Normal gallbladder and extrahepatic biliary system. Normal spleen. Normal pancreas. Enlargement of the left adrenal gland. Nephrostomy tubes are seen in both kidneys. 2.5 mm nonobstructive, Matthew in the upper pole calyx of the right kidney. Normal visualized stomach. Normal small intestine. Gaseous and fluid distention of the descending colon. The cecum measures 7.1 cm in transverse dimension. A large amount of fecal material is seen in the rectosigmoid colon. The appendix is visualized and appears normal. There is diffuse atherosclerotic calcification of the abdominal aorta and its major visceral branches, without a demonstrated aneurysm. Normal inferior vena cava. Normal retroperitoneum. A definite bladder is not seen at this time. A marked degree of soft tissue masses are seen in the lower abdomen and pelvis. Irregular air collection is seen within the central portion of the pelvis. There is evidence of destruction of the right superior and inferior pubic rami. Normal abdominal wall. There are diffuse degenerative changes of the visualized lumbar spine. Soft tissue mass and destruction of the right superior and inferior pubic rami. Disc space narrowing at the L4-L5 level with spondylosis. CT/Abdomen/Pelvis without Cont IMPRESSION: Extensive soft tissue masses in the lower abdomen and pelvis with the mass in the central portion of the pelvis containing air. This may represent emphysematous cystitis. Bony destruction of the right superior and inferior pubic rami. Bilateral nephrostomy tubes are seen. Electronically Signed: Glenn Nolan MD at 12:24 EST ,
--- NOTE | 2023-08-19 11:25 | RAD_ITS ---
STUDY: X-RAY CHEST REASON FOR EXAM: Male, 68 years old. Coronary artery disease TECHNIQUE: Single AP portable view of the chest. COMPARISON: None. FINDINGS: EKG electrodes are seen. The lungs are clear and expanded. There is no demonstrated pleural abnormality. Normal size heart. Normal mediastinum and todd. Normal visualized pulmonary arteries. Normal visualized aortic arch and descending thoracic aorta. There is a minimal dextroscoliosis of the thoracic spine. Normal visualized ribs, clavicles, and shoulders. There is no demonstrated abnormality of the visualized soft tissue structures of the upper abdomen. RAD/Chest 1 View (Portable) IMPRESSION: Normal x-ray examination of the chest. Electronically Signed: Glenn Nolan MD at 12:14 EST ,
[2023-08-19 11:31] LABS: Differential Comment SCANNED
[2023-08-19 11:38] LABS: ALB/GLOB Ratio 0.4 RATIO (0.9-2.4); AST(SGOT) 19 U/L (15-37); Alanine Aminotransfer ALT/SGPT 9 U/L (16-61); Albumin, Serum 2.1 g/dL (3.2-5.0); Alkaline Phosphatase 186 U/L (45-117); Anion Gap 8 (5-15); BUN 50 mg/dL (7-18); BUN/Creat Ratio 24.8 RATIO (10-20); Calcium,Total 14.2 mg/dL (8.5-10.1); Chloride 97 mmol/L (98-107); Creatinine, Serum 2.02 mg/dL (0.70-1.30); EST Glomerular Filtration Rate 35 mL/min (>60); Est Glom Filt Rate - Afr Amer 43 mL/min (>60); Estimated Creatinine Clearance 32.82 ml/min; Glucose 143 mg/dL (74-106); Lactic Acid 2.5 mmol/L (0.4-1.9); Potassium 3.4 mmol/L (3.5-5.1); Protein, Total 7.1 g/dL (6.4-8.2); Sodium Level 134 mmol/L (136-145); Troponin-I HS 21 pg/mL (3.0-78.0)
[2023-08-19 12:22] LABS: Mucous, Urine 0 SEEN /hpf (<or=2+); Squamous Epithelial Cells - UA 0 SEEN /hpf (0-5)
[2023-08-19 12:31] LABS: Color, Urine Yellow (Yellow); Glucose, Dipstick Normal (Normal); Ketone-Dipstick Negative (Negative); Leukocyte Esterase-Dipstick 500 /ul (Negative); Nitrite-Dipstick Negative (Negative); Occult Blood-Urine 250 /ul (Negative); Protein-Dipstick 30 mg/dl (Negative); Urine Bilirubin Dipstick Negative (Negative); Urine Clarity Sl. Cloudy (Clear); Urine Urobilinogen Normal (Normal)
[2023-08-19 12:43] LABS: Bacteria 1+ /hpf (None Seen); Red Blood Cells-Urine 25-50 SEEN /hpf (0-5); White Blood Cells 25-50 SEEN /hpf (0-5)
[2023-08-19] MEDS: Cefepime HCl 2 GM in 0.9% Normal Saline (100mL MB+) 100 ML IV (13:13)
[2023-08-19] MEDS: metroNIDAZOLE 500 MG/100 ML BAG 100 MG IV (14:07)
[2023-08-19 14:59] LABS: Reflex Lactate? Y
[2023-08-19] MEDS: Vancomycin IV 1,000 MG/200 ML BAG 200 MG IV (16:14)
--- NOTE | 2023-08-19 21:43 | HP.PCM.HOS_ITS ---
[facility] Date of Admission: 08/19/23 Date of Service: 08/19/23 Chief Complaint: Worsening generalized weakness HPI Narrative CARLOS ALBERTO URENA, is a 68 M with a past medical history of tobacco abuse; ~1 ppd x ~45 years (but now down to 1-2/week), chronic kidney disease; stage IIIa, chronic anemia; likely multifactorial, chronic generalized weakness, GERD, gout, osteoarthritis; with chronic right hip/knee pain and debility with poor nutrition and patient unable to care for himself for the past 2 to 3 weeks as he is currently staying with his brother (who can no longer take care of him) because there is no heat in his house in the setting of a known history of metastatic bladder carcinoma; status post TURBT with bilateral nephrostomy tube placement and recent radical cystoprostatectomy at [facility] done by Dr. Michael Posadas on June 25, 2023, who presents to [facility] ER complaining of worsening generalized weakness. Mr. Urena reports his symptoms began approximately 1 week prior to admission with worsening generalized weakness and malaise. He further explains that he was taking a shower and he is not sure if one of his nephrostomy tubes became displaced. According to the ER physician who contacted me for admission his tumor was not able to be completely resected at the time of surgery. 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 complicated by critical leukocytosis of 34.5 present on admission with lactic acidosis of 2.5 mmol/L present on admission concerning for sepsis and compounded by critical hypercalcemia of 14.2 mg/dL present on admission that is likely paraneoplastic in origin plus acute kidney injury with serum creatinine of 2.02 mg/dL and BUN of 50 mg/dL present on admission (up from his baseline of serum creatinine of 1.79 mg/dL and BUN of 29 mg/dL last month) with hypokalemia of 3.4 mmol/L present on admission and severe hypoalbuminemia of 2.1 g/dL present on admission consistent with severe acute protein-calorie malnutrition. A recommendation was made by the daytime hospitalist for this patient to transfer back to [facility] with his urologist agreeing to accept the patient in transfer as this case is likely a postprocedural complication. Unfortunately, they currently have no beds available at this time and since the patient has been in the ER for more than 6 hours the hospitalist service has now been contacted to admit this patient and attempt to care for him until the time that a bed becomes available. He was then admitted to the ICU for ongoing care for stay that is expected to be greater than 48 hours. [facility] Medical History (Updated 08/19/23 @ 22:[address] Louis Moore DO) Acute on chronic blood loss anemia Bladder cancer Chronic renal failure, stage 3a Loose, teeth Malnutrition Tobacco dependence Home Medications allopurinol 100 mg tablet 200 mg (2 x 100 mg) PO DAILYCM GOUT 30 days #60 tabs 07/11/23 [Rx Last Taken 08/19/23] mirtazapine 15 mg tablet (Remeron) 15 mg PO QHS DEPRESSION 30 days #30 tabs 07/11/23 [Rx Last Taken 08/18/23] pantoprazole 20 mg tablet,delayed release 20 mg PO DAILY ACID REFLUX 30 days #30 tabs 07/11/23 [Rx Last Taken 08/19/23] potassium chloride 20 mEq tablet,extended release(part/cryst) (Klor-Con M) 20 meq PO DAILYCM SUPPLEMENT 30 days #30 tabs 07/11/23 [Rx Last Taken 08/19/23] sennosides 8.6 mg-docusate sodium 50 mg tablet (Stool Softener-Stimulant Laxative) 2 tab PO BID STOOL SOFTENER 30 days #120 tabs 07/11/23 [Rx Last Taken 08/19/23] simethicone 80 mg chewable tablet 80 mg PO PCHS GAS RELIEF 30 days #120 tabs 07/11/23 [Rx Last Taken 08/19/23] acetaminophen 500 mg tablet 1,000 mg PO Q8H PRN PAIN 08/19/23 [History Last Taken Unknown] polyethylene glycol 3350 17 gram oral powder packet 17 g PO BID PRN CONSTIPATION 08/19/23 [History Last Taken Unknown] Allergy/AdvReac Type Severity Reaction Status Date / Time No Known Allergies Allergy Verified 08/19/23 10:15 Surgical History (Updated 08/19/23 @ 22:[address] Louis Moore DO) H/O transurethral resection of bladder tumor (TURBT) History of tonsillectomy S/P radical cystoprostatectomy Social History household members: none housing: house current occupational status: retired Smoking Status: Current every day smoker tobacco type: cigarettes Tobacco: How many years used: 45 how long ago did patient quit smoking: He has cut back significantly recently and tells me that he smokes 1-2/week alcohol intake: never substance use type: does not use ROS ROS Narrative Review of systems: Constitutional: Patient admits to generalized weakness but denies fever or chills. Eyes: Patient denies visual changes. ENT: Patient denies sore throat, ear pain or runny nose. Cardiovascular: Patient denies chest pain, chest pressure or palpitations. Respiratory: Patient denies shortness of breath or cough. Abdominal: Patient denies abdominal pain, nausea or vomiting. Genitourinary: Patient has bilateral nephrostomy tubes in place but he denies dysuria or hematuria. Musculoskeletal: Patient admits to chronic right knee and right hip pain but denies myalgias. Neurologic: Patient denies headache, lightheadedness or focal neurologic deficits. Skin: Patient denies rash or change in skin color. Psychiatric: Patient denies depression or anxiety. Hematology: Patient denies easy bleeding or easy bruisability. 14 point review of systems otherwise negative except for positives noted above in HPI. Vital Signs Vital Signs Vital Signs: 08/19/23 10:19 08/19/23 10:21 08/19/23 12:22 Temperature 96.9 F L Temperature Source Temporal Pulse Rate 100 85 Respiratory Rate 14 22 H Respiratory Effort Normal Non-Labored Respiratory Pattern Normal Blood Pressure 122/80 H 141/79 H Blood Pressure Mean 94 99 Pulse Ox 95 94 Oxygen Delivery Method Room Air 08/19/23 14:08 08/19/23 15:53 08/19/23 17:00 Temperature 97.6 F L Temperature Source Oral Pulse Rate 86 85 89 Respiratory Rate 22 H 18 14 Respiratory Effort Respiratory Pattern Blood Pressure 142/82 H 152/81 H 140/72 H Blood Pressure Mean 102 104 94 Pulse Ox 99 98 96 Oxygen Delivery Method Room Air Room Air Room Air 08/19/23 19:00 08/19/23 21:00 Temperature Temperature Source Pulse Rate 92 104 H Respiratory Rate 16 19 H Respiratory Effort Respiratory Pattern Blood Pressure 135/72 H 144/89 H Blood Pressure Mean 93 107 Pulse Ox 96 97 Oxygen Delivery Method Room Air Room Air Weight Weight: 142 lb 3.17 oz Body Mass Index (BMI) 19.8 Physical Exam Const alert, oriented x3 and no apparent distress Constitutional Narrative: Patient appears chronically ill and mildly cachectic. General Appearance: cooperative HEENT normocephalic, head/scalp atraumatic, hearing grossly normal bilaterally and moist oral mucous membranes Eyes PERRL and EOMs intact bilaterally Neck no lymphadenopathy and supple Resp normal respiratory effort, no retractions, no use of accessory muscles and clear to auscultation bilaterally Cardio regular rate and regular rhythm GI normal to inspection, nondistended, normoactive bowel sounds, soft to palpation, non-tender and non-distended GI Narrative: Lateral nephrostomy tubes noted draining yellow urine with no evidence of hematuria or pus. Extremity normal to inspection, full ROM and no clubbing, cyanosis or edema Skin Skin Narrative: Patient has no evidence of rash or jaundice at this time. Neuro oriented x3, CN's II-XII intact bilaterally, moves all extremities and no focal motor deficits Sensorium / Orientation: awake, alert, oriented to person, oriented to place and oriented to time Speech: speech normal Motor Exam: strength 5/5 throughout Psych affect normal Results Medical Records Data Attestation: I reviewed the patient's medical records Lab / Micro Data Attestation: I reviewed the patient's lab results. 08/19/23 10:53 08/20/23 00:10 Labs: Laboratory Results - last 24 hr 08/19/23 10:53: WBC 34.5 H*, RBC 3.38 L, Hgb 9.2 L, Hct 30.0 L, MCV 88.8, MCH 27.2, MCHC 30.7 L, RDW Std Deviation 56.2 H, RDW Coeff of Kathi 17.3 H, Plt Count 682 H, MPV 9.2, Immature Gran % (Auto) 0.700, Neut % (Auto) 94.4 H, Lymph % (Auto) 2.3 L, [place] % (Auto) 2.5, Eos % (Auto) 0.0, Baso % (Auto) 0.1, Absolute Neuts (auto) 32.6 H, Absolute Lymphs (auto) 0.81 L, Nucleated RBC % 0, Differential Comment SCANNED, Diff Path Review December, Sodium 134 L, Potassium 3.4 L, Chloride 97 L, Carbon Dioxide 29.0, Anion Gap 8, BUN 50 H, Creatinine 2.02 H, Estim Creat Clear Calc 32.82, Est GFR (MDRD) Af Amer 43 L, Est GFR (MDRD) Non-Af 35 L, BUN/Creatinine Ratio 24.8 H, Glucose 143 H, Lactic Acid 2.5 H*, Calcium 14.2 H*, Total Bilirubin 0.70, AST 19, ALT 9 L, Alkaline Phosphatase 186 H, Troponin I High Sens 21, Total Protein 7.1, Albumin 2.1 L, Globulin 5.0 H , Albumin/Globulin Ratio 0.4 L 08/19/23 12:15: Urine Color Yellow, Urine Clarity Sl. Cloudy, Urine pH 6.0, Ur Specific Bryant 1.020, Urine Protein 30 H, Urine Glucose (UA) Normal, Urine Ketones Negative, Urine Occult Blood 250 H, Urine Nitrite Negative, Urine Bilirubin Negative, Urine Urobilinogen Normal, Ur Leukocyte Esterase 500 H, Urine RBC 25-50 SEEN, Urine WBC 25-50 SEEN, Ur Squamous Epith Cells 0 SEEN, Urine Bacteria 1+, Urine Mucus 0 SEEN 08/19/23 15:14: Lactic Acid 2.0 Imagaing Radiology Impression Abdomen/Pelvis CT 08/19/23 11:24 IMPRESSION: Extensive soft tissue masses in the lower abdomen and pelvis with the mass in the central portion of the pelvis containing air. This may represent emphysematous cystitis. Bony destruction of the right superior and inferior pubic rami. Bilateral nephrostomy tubes are seen. Electronically Signed: Glenn Nolan MD at 12:24 EST , Chest X-Ray 08/19/23 11:25 IMPRESSION: Normal x-ray examination of the chest. Electronically Signed: Glenn Nolan MD at 12:14 EST , Assessment & Plan Assessment/Plan (1) Sepsis: QUALIFIERS: Acute renal failure type: unspecified Sepsis acute organ dysfunction status: with acute organ dysfunction Sepsis type: sepsis due to unspecified organism Severe sepsis acute organ dysfunction type: acute renal failure Severe sepsis shock status: without septic shock Qualified Code(s): A41.9 - Sepsis, unspecified organism; R65.20 - Severe sepsis without septic shock; N17.9 - Acute kidney failure, unspecified (2) Acute osteomyelitis, pelvis: QUALIFIERS: Laterality: unspecified laterality Qualified Code(s): M86.159 - Other acute osteomyelitis, unspecified femur (3) History of bladder carcinoma: (4) S/P radical cystoprostatectomy: (5) Acidosis, lactic: (6) Hypercalcemia of malignancy: PLAN: Plan 1. Sepsis evidenced by critical leukocytosis of 34.5 and lactic acidosis of 2.5 mmol/L present on admission with CT scan admission positive for pelvic abscess with osteomyelitis and possible emphysematous cystitis - Admit to ICU for treatment under the sepsis protocol. Continue broad-spectrum antibiotics with IV Zosyn to cover gram-negative's and anaerobes plus continue IV vancomycin to cover MRSA given his recent hospital admission and await culture and sensitivity data. Serialize lactates to ensure improvement. Recheck CBC daily to monitor response to treatment. 2. History of metastatic bladder carcinoma; status post TURBT by Dr. Prieto here on June 22, 2022 and more recent radical cystoprostatectomy done by Dr. Michael Posadas at [facility] on June 23, 2022 complicating #1 - Transfer back to [facility] as soon as possible so this patient abscess can be drained surgically for the best source control. 3. Severe hypercalcemia of malignancy with calcium of 14.2 mg/dL present on admission compounding #1 & #2 - Continue vigorous IV fluid plus patient was treated with IV calcitonin in the ER. I have also added Zometa IV per protocol for this critically high calcium level and patient with known cancer. Finally, we will check vitamin D level for sake of completeness to ensure there is no component of over-supplementation. 4. Acute kidney injury in the setting of chronic kidney disease; stage IIIa adding to the pathology of #1 - #3 - Give volume resuscitation and recheck BMP in the a.m. to ensure improvement. 5. Hypoalbuminemia of 2.1 g/dL present on admission consistent with severe acute protein calorie malnutrition due to #1 - #4 - Check prealbumin to fully confirm suspicion. Patient will need to be put on nutritional meal supplements when he is able to tolerate p.o. intake - likely after surgical intervention. 6. [id number] generalized weakness with osteoarthritis and chronic right hip/knee pain and debility with poor nutrition and patient unable to care for himself for the past 2 to 3 weeks as he is currently staying with his brother (who can no longer take care of him) because there is no heat in his house - We we will consult PT/OT and case management to see this patient on rounds in the a.m. for further recommendations with help appreciated in advance. 7. Thrombocytosis of 682 present on admission likely due to acute phase reactant stemming from #1 - #6 - Follow CBC daily to ensure continued stability. 8. History of tobacco abuse; ~1 ppd x ~45 years (but now down to 1-2/week) - Tobacco cessation will be strongly encouraged with nicotine patch offered to control cravings. 9. Chronic anemia; likely multifactorial - Check daily CBC to ensure continued stability. Check iron studies, B12 and folate levels to evaluate for potential reversible causes of anemia. 10. DVT prophylaxis - Lovenox 30 mg sq daily plus SCD's. Total time: Approximately 85 minutes. Update: Patient was rechecked approximately 4 hours after admission with stable vital signs and his lactic acid has fallen from 2.5 mmol/L present on admission to 2 mmol/L now. Unfortunately, his calcium level increased to 14.7 mg/dL (up from 14.2 mg/dL present on admission) in spite of treatment with order then placed for IV Lasix. [employer] OPERATOR was updated with plan. Sepsis Attestation Sepsis Alert: Yes Sepsis Attestation: Agree w/Sepsis Date exam was performed: 08/19/23 Time exam was performed: 23:30 Possible Source of Sepsis: GI tract/intra-abdominal and Genitourinary Sepsis Organ Dysfunction Criteria Present: Creatinine > 2.0 mg/dL and Lactic Acid > 2 mmol/L Fluid Resuscitation Fluid resuscitation indicated?: Yes Fluid Resuscitation ordered: 30 ml/kg fluid bolus ordered Amount of fluid ordered: 3 Sepsis Note Date exam was performed: 08/20/23 Time exam was performed: 03:30 Sepsis Attestation: Sepsis re-evaluation was performed Response to fluids: Fluid responsive hypotension Charges/Coding Visit Charges Inpatient E&M: 71514 Init Hosp L3
[2023-08-19] MEDS: 0.9% Normal Saline (1000mL) 1,000 ML 250 ML IV (21:52)
[2023-08-19] MEDS: Piperacil/Tazobactam 4.5 GM in 0.9% Normal Saline (100mL MB+) 100 ML IV (21:53)
[2023-08-19] MEDS: Calcitonin 400 UNITS/2 ML Vial 260 UNITS IM (22:06)
--- NOTE | 2023-08-19 22:29 | ED.RN ---
report callled to ICU nurseRoselyn
[2023-08-19 23:01] LABS: Allen Test Positive; Base Excess 6 mmol/L (-2 to +2); Blood Gas Specimen Type ART; Mode Not entered; O2 Delivery Device Room Air; PO2 77 mmHG (75-100); SITE R Radial; SO2 97 % (95-99); Total Carbon Dioxide 30 mmol/L; pH 7.51 (7.35-7.45)
[2023-08-20] VITALS (16 sets, daily range): BP systolic 105–143; BP diastolic 65–88; PULSE 78–103; RESP 20–32; TEMP 36.4–36.6; O2SAT 94–100; BMI 19.2
[2023-08-20] MEDS: Zoledronic Acid 4 MG in 0.9% Normal Saline (100mL Bag) 100 ML 210 MG IV
[2023-08-20] MEDS: Morphine 2 MG/ML Syringe IV ×2 (00:20→07:37)
[2023-08-20 00:33] LABS: ALB/GLOB Ratio 0.4 RATIO (0.9-2.4); AST(SGOT) 24 U/L (15-37); Alanine Aminotransfer ALT/SGPT 8 U/L (16-61); Alkaline Phosphatase 193 U/L (45-117); Anion Gap 7 (5-15); BUN 47 mg/dL (7-18); BUN/Creat Ratio 24.2 RATIO (10-20); Calcium,Total 14.7 mg/dL (8.5-10.1); Chloride 103 mmol/L (98-107); Creatinine, Serum 1.94 mg/dL (0.70-1.30); EST Glomerular Filtration Rate 37 mL/min (>60); Est Glom Filt Rate - Afr Amer 45 mL/min (>60); Estimated Creatinine Clearance 33.16 ml/min; Globulin 4.8 g/dL (2.2-4.2); Glucose 118 mg/dL (74-106); Protein, Total 6.8 g/dL (6.4-8.2); Sodium Level 136 mmol/L (136-145)
[2023-08-20] MEDS: Lactated Ringers 1,000 ML 999 ML IV ×2 (00:33→01:52)
--- NOTE | 2023-08-20 02:18 | PCM.RX.CS ---
Consult Antibiotic Management Pharmacy has been consulted to manage selected antiobiotic: Vancomycin Type of Intervention Type of Consult: New start Labs Labs: Sodium 136 mmol/L (136-145) 08/20/23 00:10 Potassium 4.0 mmol/L (3.5-5.1) 08/20/23 00:10 Chloride 103 mmol/L (98-107) 08/20/23 00:10 Carbon Dioxide 26.0 mmol/L (21.0-32.0) 08/20/23 00:10 Anion Gap 7 (5-15) 08/20/23 00:10 BUN 47 mg/dL (7-18) H 08/20/23 00:10 Creatinine 1.94 mg/dL (0.70-1.30) H 08/20/23 00:10 Est GFR (MDRD) Af Amer 45 mL/min (>60) L 08/20/23 00:10 Est GFR (MDRD) Non-Af 37 mL/min (>60) L 08/20/23 00:10 BUN/Creatinine Ratio 24.2 RATIO (10-20) H 08/20/23 00:10 Glucose 118 mg/dL (74-106) H 08/20/23 00:10 Dosing Weight Weight used for dosin.6 kg Estimated Creatinine Clearance Estimated Creatinine Clearance: 32.8 Goal Trough Goal Trough: 15-20 mcg/mL Pharmacy Plan for Drug Dosing Pharmacy Plan for Drug Dosing: Pharmacy Service will continue to monitor and adjust dosing as required. Follow-Up Labs Follow-Up Labs: Trough: Vancomycin Date/Time Labs Ordered Labs to be done on [date and time ordered]: 08/21 @ [id number]
[2023-08-20] MEDS: Furosemide 40 MG/4 ML Vial IV (02:36)
[2023-08-20] MEDS: Acetaminophen 325 MG Tablet 650 MG PO (03:08)
[2023-08-20] MEDS: Piperacil/Tazobactam 3.375 GM in 0.9% Normal Saline (50mL MB+) 50 ML IV ×2 (05:07→15:23)
[2023-08-20 05:22] LABS: Absolute Neutrophil Count 37.6 X10^3/uL (2.0-7.7); Basophil# 0.08 X10^3/uL; Basophil% 0.2 % (0-1); Eosinophil# 0.03 X10^3/uL; Eosinophils% 0.1 % (0-5); Hematocrit 26.9 % (40-54); Hemoglobin 8.3 g/dL (13.0-16.5); Mean Corp Hgb Conc 30.9 g/dL (32-36); Mean Corpuscular Hgb 27.4 pg (27.0-32.0); Mean Corpuscular Volume 88.8 fL (80-94); Mean Platelet Vol. 9.2 fl (6.2-12.0); Monocyte# 1.02 X10^3/uL; Monocyte% 2.5 % (0-10); NRBC Flagged by Analyzer 0 % (0-5); Neutrophil # 37.58 X10^3/uL (2.7-7.7); Neutrophil % 93.9 % (47-70); POSITIVE COUNT YES; POSITIVE DIFFERENTIAL YES; Platelet Count 600 K/mm3 (150-450); RBC Distribution Width CV 17.4 % (11.6-14.6); RBC Distribution Width SD 56.3 fl (35.1-43.9); Red Blood Count 3.03 M/mm3 (4.6-6.2)
[2023-08-20 05:52] LABS: ALB/GLOB Ratio 0.4 RATIO (0.9-2.4); AST(SGOT) 18 U/L (15-37); Alanine Aminotransfer ALT/SGPT 8 U/L (16-61); Alkaline Phosphatase 188 U/L (45-117); Anion Gap 10 (5-15); BUN 47 mg/dL (7-18); BUN/Creat Ratio 26.4 RATIO (10-20); Calcium,Total 13.1 mg/dL (8.5-10.1); Chloride 101 mmol/L (98-107); Creatinine, Serum 1.78 mg/dL (0.70-1.30); EST Glomerular Filtration Rate 41 mL/min (>60); Est Glom Filt Rate - Afr Amer 49 mL/min (>60); Estimated Creatinine Clearance 36.09 ml/min; Globulin 4.5 g/dL (2.2-4.2); Glucose 130 mg/dL (74-106); Protein, Total 6.5 g/dL (6.4-8.2); Sodium Level 139 mmol/L (136-145)
[2023-08-20 06:05] LABS: Differential Indicated SCAN CRITERIA MET
[2023-08-20 06:06] LABS: Ionized Calcium 6.89 mg/dL (4.36-5.20)
--- NOTE | 2023-08-20 06:55 | US_ITS ---
STUDY: RENAL ULTRASOUND - COMPLETE REASON FOR EXAM: Male, 68 years old. Bilateral nephrostomy tubes TECHNIQUE: Ultrasound evaluation of the kidneys was performed with real-time and static agee-scale imaging. COMPARISON: Comparison is made with prior CT scan abdomen and pelvis done on August 19, 2023. FINDINGS: RIGHT KIDNEY: Normal location of the right kidney, which is normal in size. The right kidney measures 12 cm x 4.9 cm x 5.4 cm. There is a normal cortex of the right kidney. The renal cortex measures 1.8 cm. There are 2 right renal cysts. The largest cyst measures 1.8 cm x 1.2 cm x 1.5 cm There are no right renal calculi. There is no right hydronephrosis. A right-sided nephrostomy is seen. DISTAL RIGHT URETER: There is non-visualization of the distal right ureter. There is no demonstrated right ureterovesical junction calculus. There is a visualized right ureteral jet. LEFT KIDNEY: Normal location of the left kidney, which is normal in size. The left kidney measures 11.9 cm x 4.9 cm x 5.9 cm. There is a normal cortex of the left kidney. The renal cortex measures 1.8 cm. There is no left renal mass or cyst. There are no left renal calculi. There is no left hydronephrosis. A left-sided nephrostomy catheter is seen. DISTAL LEFT URETER: There is non-visualization of the distal left ureter. There is no demonstrated left ureterovesical junction calculus. There is a visualized left ureteral jet. BLADDER: The patient is status post cystectomy. US/Kidney and Bladder IMPRESSION: Bilateral nephrostomy catheters are seen. No evidence of hydronephrosis. Electronically Signed: Glenn Nolan MD at 15:02 EST ,
[2023-08-20] MEDS: Potassium Chloride Oral Tablet 20 MEQ 40 MEQ PO (06:59)
[2023-08-20 07:26] LABS: Differential Comment SCANNED
[2023-08-20] MEDS: 0.9% Saline Lock 10 ML Syringe IV (07:37)
[2023-08-20 08:52] LABS: PTHIN < 6.3 pg/mL (18.4-80.1)
[2023-08-20 08:57] LABS: Ionized Calcium Order ORDER TUBE
[2023-08-20] MEDS: 0.9 % NaCl (Sterile) Posiflush 10 mL IV (09:56)
[2023-08-20] MEDS: Allopurinol 100 MG Tablet 200 MG PO (09:56)
[2023-08-20] MEDS: SimETHICONE 80 MG Chewable Tablet PO ×3 (09:56→17:04)
--- NOTE | 2023-08-20 09:57 | EX.PCM.CONCC ---
Assessment & Plan Assessment/Plan (1) Sepsis: QUALIFIERS: Sepsis type: sepsis due to unspecified organism Sepsis acute organ dysfunction status: with acute organ dysfunction Severe sepsis acute organ dysfunction type: acute renal failure Acute renal failure type: unspecified Severe sepsis shock status: without septic shock Qualified Code(s): A41.9 - Sepsis, unspecified organism; R65.20 - Severe sepsis without septic shock; N17.9 - Acute kidney failure, unspecified (2) Acute osteomyelitis, pelvis: QUALIFIERS: Laterality: unspecified laterality Qualified Code(s): M86.159 - Other acute osteomyelitis, unspecified femur (3) History of bladder carcinoma: (4) S/P radical cystoprostatectomy: (5) Acidosis, lactic: (6) Hypercalcemia of malignancy: PLAN: Plan RECOMMENDATIONS: 1. Aggressive fluid resuscitation for hypercalcemia 2. Continue empiric antibiotics 3. Await transfer to tertiary center for definitive intervention 4. Monitor for hypoxemia IMPRESSIONS: 1. Sepsis secondary to pelvic abscess Patient with postoperative pelvic abscess showing osteomyelitis and possible emphysematous cystitis. Patient has responded well to broad-spectrum antibiotics. Arrangements have been made for possible transfer to tertiary center for surgical drainage. If patient cannot be transferred in the next 24 to 48 hours, may need to evaluate for possible CT-guided drainage versus urology evaluation. 2. Severe hypercalcemia Possibly secondary to malignancy. Patient has received Zometa and tolerated this well. Will add lactated Ringer's. Patient is not reporting any abdominal symptoms at this time. Patient does not have any hematuria to suggest renal stones. 3. Acute kidney injury on CKD stage IIIa Clinical suspicion for prerenal etiology secondary to problem #1. Patient does have nephrostomies that appear to be functioning appropriately. No indication for renal replacement therapy. Will continue to monitor closely. 4. Debility/acute on chronic weakness/thrombocytosis/history of tobacco abuse/chronic anemia/poor social support Complicates care, management, recovery and prognosis. Patient reportedly lives with his brother, but appears to be significantly weak. Patient has lost 30 pounds in the last 3 months. Patient will be seen by PT/OT and dietitian if transfer cannot take place in a timely manner. HPI Consult Data Date of Consult: 08/20/23 HPI Narrative HPI Narrative: CARLOS ALBERTO TORRES is a 68 M, with past medical history listed below, who presents to [facility] on 08/19/2023 secondary to generalized weakness. Patient is a very poor historian, so the majority of the information was from the electronic medical record. Patient reportedly has been living with his brother. Patient reportedly had nephrostomy tubes placed at [facility] and recently had a prostatectomy complicated by pelvic abscess at [facility]. Patient reportedly was taking a shower and was worried that he had displaced nephrostomy tube. Patient had denied any back pain. In the ER, patient was afebrile, but tachycardic at 100 bpm. Patient was doing well on room air and normotensive. Laboratory data showed a white blood cell count of 34.5 with a hemoglobin of 9.2 and platelets of 682. Patient did have a left shift noted. Chemistry showed a potassium of 3.4, creatinine of 2.02 and a glucose of 143. Calcium was elevated at 14.2 along with a lactate of 2.5. UA was suggestive of a possible urinary tract infection. CT of the abdomen and pelvis showed an abscess in the central portion of the pelvis containing air, but chest x-ray was within normal limits. Patient was given broad-spectrum antibiotics and was initially to be transferred to [facility] for evaluation of an abdominal abscess. Patient subsequently ended up having to be admitted secondary to an inability to get the patient transferred. Since being in the intensive care unit, patient has received broad-spectrum antibiotics. Patient has not had to be placed on empiric antibiotics. Patient also has been receiving aggressive fluid resuscitation for his hypercalcemia. Patient is not reporting any abdominal symptoms, cramping or headaches at this time. Patient reportedly has an accepting physician at [facility], but no bed at this time. With limitations of poor historian, review of systems otherwise negative from a constitutional, HEENT, respiratory, cardiovascular, GI, genitourinary, musculoskeletal, skin, neurologic, psychiatric and hematologic system unless stated above. [facility], [facility] Medical History Acute on chronic blood loss anemia Bladder cancer Chronic renal failure, stage 3a Loose, teeth Malnutrition Tobacco dependence Home Medications allopurinol 100 mg tablet 200 mg (2 x 100 mg) PO DAILYCM GOUT 30 days #60 tabs 07/11/23 [Rx Last Taken 08/19/23] mirtazapine 15 mg tablet (Remeron) 15 mg PO QHS DEPRESSION 30 days #30 tabs 07/11/23 [Rx Last Taken 08/18/23] pantoprazole 20 mg tablet,delayed release 20 mg PO DAILY ACID REFLUX 30 days #30 tabs 07/11/23 [Rx Last Taken 08/19/23] potassium chloride 20 mEq tablet,extended release(part/cryst) (Klor-Con M) 20 meq PO DAILYCM SUPPLEMENT 30 days #30 tabs 07/11/23 [Rx Last Taken 08/19/23] sennosides 8.6 mg-docusate sodium 50 mg tablet (Stool Softener-Stimulant Laxative) 2 tab PO BID STOOL SOFTENER 30 days #120 tabs 07/11/23 [Rx Last Taken 08/19/23] simethicone 80 mg chewable tablet 80 mg PO PCHS GAS RELIEF 30 days #120 tabs 07/11/23 [Rx Last Taken 08/19/23] acetaminophen 500 mg tablet 1,000 mg PO Q8H PRN PAIN 08/19/23 [History Last Taken Unknown] polyethylene glycol 3350 17 gram oral powder packet 17 g PO BID PRN CONSTIPATION 08/19/23 [History Last Taken Unknown] Allergy/AdvReac Type Severity Reaction Status Date / Time No Known Allergies Allergy Verified 08/19/23 10:15 Surgical History H/O transurethral resection of bladder tumor (TURBT) History of tonsillectomy S/P radical cystoprostatectomy Social History household members: none housing: house current occupational status: retired Smoking Status: Current every day smoker tobacco type: cigarettes Tobacco: How many years used: 45 how long ago did patient quit smoking: He has cut back significantly recently and tells me that he smokes 1-2/week alcohol intake: never substance use type: does not use ROS ROS Narrative See HPI. Somewhat limited secondary to poor historian Physical Exam Const alert, oriented x3 and no apparent distress Constitutional Narrative: Patient appears chronically ill and mildly cachectic. Some dysarthria appreciated General Appearance: cooperative HEENT normocephalic, head/scalp atraumatic, hearing grossly normal bilaterally and moist oral mucous membranes Eyes PERRL, EOMs intact bilaterally and conjunctivae normal Neck no lymphadenopathy and supple Resp normal respiratory effort Auscultation: clear to auscultation bilaterally; Negative for rales, rhonchi or wheezes Cardio regular rate, regular rhythm, S1 normal heart sound, S2 normal heart sound, no murmurs, no rub and no gallops GI normal to inspection, nondistended, normoactive bowel sounds, soft to palpation and non-distended GI Narrative: Bilateral nephrostomy tubes noted draining yellow urine with no evidence of hematuria or pus. Palpation: tender suprapubic Extremity normal to inspection, full ROM and no clubbing, cyanosis or edema Skin Skin Narrative: Patient has no evidence of rash or jaundice at this time. Neuro oriented x3, CN's II-XII intact bilaterally, moves all extremities and no focal motor deficits Speech: speech normal Motor Exam: strength 5/5 throughout Psych affect normal Medical Records Data Attestation: I reviewed the patient's medical records Lab / Micro Data Attestation: I reviewed the patient's lab results. 08/20/23 05:00 08/20/23 05:00 Labs: Laboratory Results - last 24 hr 08/19/23 10:53: WBC 34.5 H*, RBC 3.38 L, Hgb 9.2 L, Hct 30.0 L, MCV 88.8, MCH 27.2, MCHC 30.7 L, RDW Std Deviation 56.2 H, RDW Coeff of Kathi 17.3 H, Plt Count 682 H, MPV 9.2, Immature Gran % (Auto) 0.700, Neut % (Auto) 94.4 H, Lymph % (Auto) 2.3 L, [place] % (Auto) 2.5, Eos % (Auto) 0.0, Baso % (Auto) 0.1, Absolute Neuts (auto) 32.6 H, Absolute Lymphs (auto) 0.81 L, Nucleated RBC % 0, Differential Comment SCANNED, Diff Path Review December foll, Sodium 134 L, Potassium 3.4 L, Chloride 97 L, Carbon Dioxide 29.0, Anion Gap 8, BUN 50 H, Creatinine 2.02 H, Estim Creat Clear Calc 32.82, Est GFR (MDRD) Af Amer 43 L, Est GFR (MDRD) Non-Af 35 L, BUN/Creatinine Ratio 24.8 H, Glucose 143 H, Lactic Acid 2.5 H*, Calcium 14.2 H*, Total Bilirubin 0.70, AST 19, ALT 9 L, Alkaline Phosphatase 186 H, Troponin I High Sens 21, Total Protein 7.1, Albumin 2.1 L, Globulin 5.0 H, Albumin/Globulin Ratio 0.4 L 08/19/23 12:15: Urine Color Yellow, Urine Clarity Sl. Cloudy, Urine pH 6.0, Ur Specific [place] 1.020, Urine Protein 30 H, Urine Glucose (UA) Normal, Urine Ketones Negative, Urine Occult Blood 250 H, Urine Nitrite Negative, Urine Bilirubin Negative, Urine Urobilinogen Normal, Ur Leukocyte Esterase 500 H, Urine RBC 25-50 SEEN, Urine WBC 25-50 SEEN, Ur Squamous Epith Cells 0 SEEN, Urine Bacteria 1+, Urine Mucus 0 SEEN 08/19/23 15:14: Lactic Acid 2.0 08/20/23 00:10: Sodium 136, Potassium 4.0, Chloride 103, Carbon Dioxide 26.0, Anion Gap 7, BUN 47 H, Creatinine 1.94 H, Estim Creat Clear Calc 33.16, Est GFR (MDRD) Af Amer 45 L, Est GFR (MDRD) Non-Af 37 L, BUN/Creatinine Ratio 24.2 H, Glucose 118 H, Calcium 14.7 H*, Total Bilirubin 1.00, AST 24, ALT 8 L, Alkaline Phosphatase 193 H, Total Protein 6.8, Albumin 2.0 L, Globulin 4.8 H, Albumin/Globulin Ratio 0.4 L, Prealbumin 10.0 L 08/20/23 00:50: PTH Intact < 6.3 L 08/20/23 01:02: Ionized Calcium 6.89 H 08/20/23 05:00: WBC 40.0 H*, RBC 3.03 L, Hgb 8.3 L, Hct 26.9 L, MCV 88.8, MCH 27.4, MCHC 30.9 L, RDW Std Deviation 56.3 H, RDW Coeff of Kathi 17.4 H, Plt Count 600 H, MPV 9.2, Immature Gran % (Auto) 1.300 H, Neut % (Auto) 93.9 H, Lymph % (Auto) 2.0 L, [place] % (Auto) 2.5, Eos % (Auto) 0.1, Baso % (Auto) 0.2, Absolute Neuts (auto) 37.6 H, Absolute Lymphs (auto) 0.80 L, Nucleated RBC % 0, Differential Comment SCANNED, Diff Path Review December foll, Sodium 139, Potassium 3.0 L, Chloride 101, Carbon Dioxide 28.0, Anion Gap 10, BUN 47 H, Creatinine 1.78 H, Estim Creat Clear Calc 36.09, Est GFR (MDRD) Af Amer 49 L, Est GFR (MDRD) Non-Af 41 L, BUN/Creatinine Ratio 26.4 H, Glucose 130 H, Calcium 13.1 H*, Total Bilirubin 0.80, AST 18, ALT 8 L, Alkaline Phosphatase 188 H, Total Protein 6.5, Albumin 2.0 L, Globulin 4.5 H, Albumin/Globulin Ratio 0.4 L ABG Data ABG results: ABG 08/19/23 22:56 Specimen Type ART Sample Site R Radial pH 7.51 H Bicarbonate Actual 29.0 H Total CO2 30 Base Excess 6 H O2 Saturation 97 ABG pCO2 36.0 ABG pO2 77 Delon Test Positive O2 Delivery Device Room Air Vent Mode Not entered Imagaing Radiology Impression Abdomen/Pelvis CT 08/19/23 11:24 IMPRESSION: Extensive soft tissue masses in the lower abdomen and pelvis with the mass in the central portion of the pelvis containing air. This may represent emphysematous cystitis. Bony destruction of the right superior and inferior pubic rami. Bilateral nephrostomy tubes are seen. Electronically Signed: Glenn Nolan MD at 12:24 EST , Chest X-Ray 08/19/23 11:25 IMPRESSION: Normal x-ray examination of the chest. Electronically Signed: Glenn Nolan MD at 12:14 EST , Charges/Coding Visit Charges Inpatient E&M: 85482 Init Hosp L3
[2023-08-20] MEDS: Pantoprazole Sodium 20 MG Tablet PO (09:58)
--- NOTE | 2023-08-20 10:09 | PCM.OP.PRO ---
Procedure Report Date of Procedure: 08/20/23 Assessment & Plan Assessment/Plan (1) Sepsis: QUALIFIERS: Acute renal failure type: unspecified Sepsis acute organ dysfunction status: with acute organ dysfunction Sepsis type: sepsis due to unspecified organism Severe sepsis acute organ dysfunction type: acute renal failure Severe sepsis shock status: without septic shock Qualified Code(s): A41.9 - Sepsis, unspecified organism; R65.20 - Severe sepsis without septic shock; N17.9 - Acute kidney failure, unspecified (2) Acute osteomyelitis, pelvis: QUALIFIERS: Laterality: unspecified laterality Qualified Code(s): M86.159 - Other acute osteomyelitis, unspecified femur Procedures Radiology Radiology Access Procedures: PICC Procedure Time Out Time Out Informed consent given: Yes Consent signed: Yes Time out checklist: patient, procedure, site marked/identified, positioning of patient, supplies available and allergies confirmed Time out verified: Yes Time out date: 08/20/23 Time out time: 08:53 PICC Line Consent Screening tool completed:: Yes Consent obtained:: Yes Consent given by (patient or responsible constitution party):: patient Line successful (if no, document why in comments):: Yes Insertion Reason for Insertion: Residential Medication Date of Insertion: 08/20/23 Ok to use: Yes Type of PICC inserted: Dual Power PICC PICC Lot #: [id number] PICC Reference #: [id number] Microintroducer Used: Yes (in kit) Ultrasound/Equipment Used: Probe Cover Kit Trimmed Length (cm): 44 Insertion Length (cm): 42 Exposed Length (cm): 2 Tip Placement: SVC (Superior Vena Cava) Placement Confirmation: 3CG Insertion Vein: Right Basilic Insertion Attempts: 1 Local Anesthesia Used: Lidocaine 1% (in kit) Dressing Applied: Statlock and Tegaderm CHG Arm Measurement above site (in cm): 25 Patient Tolerated Procedure: Well Threading Difficulties: No Comments Comment: Patient identity was verified with two patient identifiers. Informed consent was obtained and time-out was completed. Hands were sanitized. The patient was positioned supine with right arm at 90 degrees. The patient's upper arm vasculature was assessed using ultrasound, and the right basilic vein was externally marked. An external measurement was obtained of 44 cm. External leads were applied to the patient's right upper chest and laterally and inferior of the umbilicus on the mid axillary line. Cap, mask, and prep gloves were donned. The underdrape was placed under the patient's arm. The site was prepped with chlorhexidine, and tourniquet was loosely applied. Prep gloves were discarded, and hands were sanitized. The sterile kit was opened with additional supplies dropped in. Sterile gown and gloves were donned, and the patient was draped. The sterile kit was assembled with all needle, introducer, connector, and catheter flushed with sterile normal saline. The marked site of insertion was anesthetized with 1% lidocaine. Patient tolerated well. The right basilic vein was then accessed using ultrasound guidance and guidewire was inserted to safety cesia. The tourniquet was released. The access needle was removed while securing the guidewire in place. The site was again anesthetized with 1% lidocaine, prior to insertion of introducer sheath and dilator. Patient tolerated well. The catheter was trimmed to a length of 44 cm. Using 3C guidance, the catheter was then inserted through the introducer sheath, slowly. There was no resistance on insertion. Maximal p-wave, without deflection, was obtained at an insertion length of 42 cm, leaving 2 cm external. The introducer sheath was retracted and peeled away, incrementally, while keeping the catheter secured. The stylet was removed. A flushed needleless connector was attached to each lumen. Blood return was verified and each lumen was flushed with sterile normal saline in a pulsatile fashion. Total sterile flushes used for the insertion was 4 10 ml syringes. Finally, the insertion site was cleaned with chlorhexidine, and the catheter was secured using a StatLock. The site was covered with a Tegaderm CHG Dressing. Baseline arm circumference was obtained at the insertion site and measured 25 cm. The patient was provided written handout on PICC line care. Primary nurse is aware PICC line is ready for use.
[2023-08-20] MEDS: Lactated Ringers 1,000 ML 125 ML IV (10:39)
[2023-08-20 11:25] LABS: ALB/GLOB Ratio 0.4 RATIO (0.9-2.4); AST(SGOT) 15 U/L (15-37); Alanine Aminotransfer ALT/SGPT 7 U/L (16-61); Albumin, Serum 1.9 g/dL (3.2-5.0); Alkaline Phosphatase 170 U/L (45-117); Anion Gap 9 (5-15); BUN 47 mg/dL (7-18); Calcium,Total 12.8 mg/dL (8.5-10.1); Chloride 101 mmol/L (98-107); Creatinine, Serum 1.81 mg/dL (0.70-1.30); EST Glomerular Filtration Rate 40 mL/min (>60); Est Glom Filt Rate - Afr Amer 48 mL/min (>60); Estimated Creatinine Clearance 35.49 ml/min; Globulin 4.3 g/dL (2.2-4.2); Glucose 107 mg/dL (74-106); Potassium 3.1 mmol/L (3.5-5.1); Protein, Total 6.2 g/dL (6.4-8.2); Sodium Level 138 mmol/L (136-145)
[2023-08-20 13:03] LABS: Pathologist Review Reviewed
[2023-08-20 13:07] LABS: Pathologist Review Reviewed
[2023-08-20] MEDS: Ensure Plus High Protein 120 ML LIQUID PO ×2 (16:00→17:04)
[2023-08-20] MEDS: Vancomycin HCl 750 MG in 0.9% Normal Saline (250mL Bag) 250 ML 250 MG IV (16:00)
--- NOTE | 2023-08-21 13:45 | PCM.DC.SUM ---
Providers Date of Admission: 08/19/23 Date of Discharge: 08/20/23 Primary Care Physician: BASIA De La Paz Consultations 08/19/23 23:29 Consult: Disability Insurance Hearing Officer / Pulmonary Medicine Routine Consulting Provider: Pulmonary Medicine roderick [place] Reason for Consult: Sepsis with pelvic abscess and critical hypercalcemia with known bladder ca EMERGENT Consult: No MD Notified: Yes Date Notified: 08/19/23 Time Notified: 22:21 Method of Notification: Text Reason For Visit: SEPSIS AND PELVIC ABCESSAFTER RECENT PROSTATECTOMY Diagnosis Discharge Diagnosis (1) Sepsis: Status: Acute Code(s): A41.9 - Sepsis, unspecified organism Qualifiers: Acute renal failure type: unspecified Sepsis acute organ dysfunction status: with acute organ dysfunction Sepsis type: sepsis due to unspecified organism Severe sepsis acute organ dysfunction type: acute renal failure Severe sepsis shock status: without septic shock Qualified Code(s): A41.9 - Sepsis, unspecified organism; R65.20 - Severe sepsis without septic shock; N17.9 - Acute kidney failure, unspecified (2) Acute osteomyelitis, pelvis: Status: Acute Code(s): M86.159 - Other acute osteomyelitis, unspecified femur Qualifiers: Laterality: unspecified laterality Qualified Code(s): M86.159 - Other acute osteomyelitis, unspecified femur Plan 1. 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 #3 acute kidney injury on a backdrop of chronic kidney disease stage IIIa #4 metastatic bladder carcinoma-papillary urothelial carcinoma Medications at Discharge Home Medications allopurinol 100 mg tablet 200 mg (2 x 100 mg) PO DAILYCM GOUT 30 days #60 tabs 07/11/23 mirtazapine 15 mg tablet (Remeron) 15 mg PO QHS DEPRESSION 30 days #30 tabs 07/11/23 pantoprazole 20 mg tablet,delayed release 20 mg PO DAILY ACID REFLUX 30 days #30 tabs 07/11/23 potassium chloride 20 mEq tablet,extended release(part/cryst) (Klor-Con M) 20 meq PO DAILYCM SUPPLEMENT 30 days #30 tabs 07/11/23 sennosides 8.6 mg-docusate sodium 50 mg tablet (Stool Softener-Stimulant Laxative) 2 tab PO BID STOOL SOFTENER 30 days #120 tabs 07/11/23 simethicone 80 mg chewable tablet 80 mg PO PCHS GAS RELIEF 30 days #120 tabs 07/11/23 acetaminophen 500 mg tablet 1,000 mg PO Q8H PRN PAIN 08/19/23 polyethylene glycol 3350 17 gram oral powder packet 17 g PO BID PRN CONSTIPATION 08/19/23 Hospital Course Operations None Procedures None Summary of Care Provided Minutes Spent on Discharge: 32 Hospital Course: This 68-year-old white male was seen in the emergency room at [facility] with complaints of worsening generalized weakness. Patient had a history of metastatic bladder carcinoma and had bilateral nephrostomy tube placement and a recent radical cystoprostatectomy at [facility] in June 2023. Workup in the emergency room included a CT scan of the abdomen and pelvis which was positive for residual mass in the pelvis with air and distraction of the inferior and superior pubic rami consistent with abscess and osteomyelitis plus suspected emphysematous cystitis. Patient's lactic acid was 2.5, patient's white blood cell count was 34.5 and patient's calcium level was 14.2. Creatinine was 2.02 and BUN was 50. A recommendation was made to the emergency room physician to transfer the patient back to [facility] with his urologist agreeing to accept the patient but unfortunately a bed was not available. Due to this fact, the patient was admitted to ICU, he had been given Zometa for his hypercalcemia, and he was maintained on IV antibiotics and seen by critical care. Patient's status stabilized and he was transferred out to the PCU for ongoing care. On 08/20/2023, patient was seen and examined: On examination he appeared in good health and spirits. Vital signs as documented. Skin warm and dry and without overt rashes. Neck without JVD, neck was supple, trachea midline, thyroid was normal. Lungs clear bilaterally, normal air movement was noted. Heart exam notable for regular rhythm, normal sounds and absence of murmurs, rubs or gallops. Abdomen unremarkable and without evidence of organomegaly, masses, or abdominal aortic enlargement. Bowel sounds are present, abdomen is not distended. Extremities nonedematous, no cyanosis was noted, no clubbing was noted. Neuro: Cranial nerves II through XII are grossly intact, no focal motor deficits were noted, sensation to light touch and pinprick intact, motor exam 5/5 throughout. Psych: Patient is alert and oriented x3, he does not appear anxious or depressed, he does not appear agitated. On 08/20/2023, a bed became available at [facility] and the patient was transported there for further care in stable condition. Weight / BMI Weight Weight: 62.5 kg Body Mass Index (BMI) 19.2 ABG / Lab / Microbiology Data 08/20/23 05:00 08/20/23 10:40 Microbiology: Microbiology 08/19/23 12:15 Urine, Nephrostomy Urine Culture - Final Staphylococcus lugdunensis Radiography Diagnostic Testing: Radiology Impression Renal Ultrasound 08/20/23 06:55 IMPRESSION: Bilateral nephrostomy catheters are seen. No evidence of hydronephrosis. Electronically Signed: Glenn Nolan MD at 15:02 EST , Meaningful Use Info Meaningful Use Diagnoses (Choose all that apply): None applicable Discharge Plan Admission Admit Date/Time: 08/19/23 22:18 Attending Provider: Cyrus Duggan Primary Care Provider: Cyrus Urena [facility] Consulting Providers: Louis Moore; Issa Landeros; Jey Saenz; Fam Donnelly; Kiran Leong; Alondra Bond LEAD CONSULTANT Discharge Orders/Prescriptions Prescriptions: No Action sennosides-docusate sodium [Stool Softener-Stimulant Laxat] 8.6-50 mg Tablet 2 tab PO BID 30 Days Qty: 120 0RF allopurinol 100 mg Tablet 200 mg PO DAILYCM 30 Days Qty: 60 0RF pantoprazole 20 mg Tablet,Delayed Release (Dr/Ec) 20 mg PO DAILY 30 Days Qty: 30 0RF potassium chloride [Klor-Con M20] 20 mEq Tablet,Er Particles/Crystals 20 meq PO DAILYCM 30 Days Qty: 30 0RF simethicone 80 mg Tablet,Chewable 80 mg PO PCHS 30 Days Qty: 120 0RF mirtazapine [Remeron] 15 mg tablet 15 mg PO QHS 30 Days Qty: 30 0RF acetaminophen 500 mg Tablet 1,000 mg PO Q8H PRN (Reason: PAIN ) polyethylene glycol 3350 17 gram Powder In Packet 17 g PO BID PRN (Reason: CONSTIPATION ) Referrals / Follow Up: Cyrus Urena [facility], LEAD CONSULTANT-C [Primary Care Provider] - Disposition Discharge Orders: Discharge Patient (Routine); Ordered 08/20/23 Ordered By: Dr. Cyrus Duggan Charges/Coding Visit Charges Inpatient E&M: 91309 Disch Hosp >30min
[2023-08-22 12:08] LABS: Vitamin D 1,25-Dihydroxy 12.8 pg/mL (24.8-81.5)
== END 2023-08-20 18:30 | disposition short-term general hospital (02) | DRG 871 ==
LOC: ED 14:52 → ICU 08-20 00:14 → PCU 08-20 13:34
PROVIDERS: Admitting Provider Internal Medicine; Emergency Provider Emergency Medicine; PCP Nurse Practitioner Family; Visit Provider Internal Medicine
DX: A41.9 Sepsis, unspecified organism (principal); K65.1 Peritoneal abscess; E43 Unspecified severe protein-calorie malnutrition; E87.20 Acidosis, unspecified; M86.18 Other acute osteomyelitis, other site; N17.9 Acute kidney failure, unspecified; Z68.1 Body mass index [BMI] 19.9 or less, adult; C67.9 Malignant neoplasm of bladder, unspecified; D64.9 Anemia, unspecified; N18.31 Chronic kidney disease, stage 3a; R65.20 Severe sepsis without septic shock; M16.11 Unilateral primary osteoarthritis, right hip; E83.52 Hypercalcemia; E88.09 Other disorders of plasma-protein metabolism, not elsewhere classified; Z87.891 Personal history of nicotine dependence; N30.80 Other cystitis without hematuria
CPT/HCPCS: 36569; 36600; 71045; 74176; 76770; 80053; 81001; 82330; 82652; 82803; 83605; 83970; 84134; 84484; 85025; 87040; 87077; 87086; 87088; 87186; 93005; 99285; J3489; J7030; J7050; J7120; A4216; J0630; J1940